=== PATIENT | female | born 1935 | race Caucasian/White ===

== ENCOUNTER 2023-10-07 09:27 | Outpatient (REF) | payer MEDICARE, OTHER, SELFPAY ==
--- NOTE | ~2023-10-07 | XR_ITS ---
EXAMINATION: XR HIP, RIGHT CLINICAL INFORMATION: Osteoarthritis right hip COMPARISON: None available. TECHNIQUE: Two views of the right hip. FINDINGS: Right hip joint space normal surrounding bone normal. There is a small focus of calcific or ossific density adjacent to the greater trochanter anterior laterally. This measures 15 mm craniocaudal and 3 mm transverse. Surrounding bone and soft tissues unremarkable. XR/XR hip RT min 2V IMPRESSION: 1. Normal right hip joint. 2. Small focus of calcific or ossific density adjacent to the greater trochanter. This could reflect calcific tendinitis or calcific bursitis or heterotopic ossification related to prior trauma.
== END 2023-10-07 09:28 | disposition home or self-care (01) ==
LOC: HO.XRAY 09:27
PROVIDERS: PCP Internal Medicine; Referring Provider Internal Medicine; Visit Provider Anesthesiology
DX: M16.11 Unilateral primary osteoarthritis, right hip (principal); G89.4 Chronic pain syndrome; M46.1 Sacroiliitis, not elsewhere classified; M99.04 Segmental and somatic dysfunction of sacral region
CPT/HCPCS: 73502; 99202

== ENCOUNTER 2023-10-07 09:27 | Outpatient (AMB) | payer MEDICARE, OTHER, SELFPAY ==
--- NOTE | 2023-10-07 09:31 | A.OFFVIS_ITS ---
Intake Vital Signs 10/07/23 09:56 Height 5 ft 4 in Weight 119 lb 4 oz BMI 20.5 BP 118/60 Blood Pressure Location Lt brachial Position Sitting Respiration 14 Pulse 63 Pulse Source Pulse Oximeter Pulse Oximetry (%) 97 Oxygen Delivery Method Room Air Intake Visit Reasons: Lumbar Radiculopathy Intake Note: Patient comes in for initial visit was referred by primary care. Reports pain 7/10. Allergies doxycycline Allergy (Unknown, Verified 10/07/23 09:55) Unknown fentanyl Allergy (Unknown, Verified 10/07/23 09:55) Nausea and Vomiting meperidine [From Demerol] Allergy (Unknown, Verified 10/07/23 09:55) Unknown naproxen [From Aleve] Allergy (Unknown, Verified 10/07/23 09:55) Unknown oxycodone Allergy (Unknown, Uncoded 10/07/23 09:30) Unknown HPI HPI Comments History of Present Illness Details La is very pleasant 87 years old female who presents in my office with complains on pain in the right side of the lower back with radiation down to the right lower extremity to the level of the knee on posterior surface of the posterior buttock hip and thigh. She also complains on pain in the projection of the right groin. She reports that this pain started in June 2022. She denies any trauma car accident or inciting event. She reports that she can sleep normally can do activities of daily living with certain limitations, for example she complains on severe pain in the groin while she is making up her bed. She can not take care of herself but she can not function normally. She is retired individual and homemaker now. She reports that heat applications and some cold applications alleviate her pain mostly minimally. She reports that walking and movement make her pain is most severe. She reports that flexing forward aggravate her pain more than flexing backwards. She reports that between standing walking laying down or sitting most of the pain she feels with standing and walking. She reports her pain today 8 to 9/10 in the back and 5 out of 10 in the groin. She reports her pain in terms of tissue damage as pulsing, throbbing, shooting, sharp, stinging, hurting, aching, heavy, spreading, radiating. She reports that she takes Plavix 75 mg because of history of TIA. She also reports she that she tried NSAIDs and Tylenol to help her pain. Those medications do not help her pain. She had multiple images of the lumbar spine which demonstrated spinal stenosis. She had multiple injections including facet joint injections as well as mild procedure all of those injections were done with steroids and none of it alleviated her pain. She does not remember if her physicians in the past spoke with her about the sacroiliac joint pain or hip pain. Her past medical history significant for TIA history of fatigue and history of thyroid nodules she was hypothyroid in the past however now her thyroid function returned to normal. She reports anemia and shortness of breath from time to time she might have some element of congestive heart failure. She denies any surgery if we had not consider mild procedures surgery. She admitted smoking cigarettes in the past she stated that she stopped smoking in 1989. She denies alcoholic beverages he does not drink coffee or caffeinated beverages, she denies recreational drugs. [facility] Family History (Updated 10/07/23 @ 09:35 by Maddy Chávez) Mother Cancer of lung Sister Diabetes type 2, controlled FH: mental illness Son FH: mental illness Social History (Updated 10/07/23 @ 09:32 by Maddy Chávez) Alcohol intake: never Patient Tobacco Use Status: Former Tobacco user Review of Systems Const Reports no additional complaints ENT Reports Normal hearing present Card Reports as per HPI Resp Reports as per HPI GI Reports no additional complaints Reports no additional complaints Musc Reports as per HPI Neuro Reports no additional complaints, Reports Normal hearing present, Denies Abnormal speech present, Denies confusion and Denies Sensory deficit (Neuro) Psych Reports no additional complaints and Denies confusion Physical Exam Vital Signs: Last Vital Signs Pulse 63 10/07/23 09:56 Resp 14 10/07/23 09:56 BP 118/60 10/07/23 09:56 Pulse Ox 97 10/07/23 09:56 Oxygen Delivery Method Room Air 10/07/23 09:56 BMI result Body Mass Index 20.5 Const General: no acute distress; No confusion Orientation/consciousness: patient oriented x3 and No confusion Eyes General: appearance normal, both eyes and all related structures Pupils: Equal, round and reactive pupils present EOM: EOMs intact bilaterally Neck Neck: Yes full ROM Chest Chest palpation & inspection: normal inspection of the chest Resp Effort & Inspection: normal respiratory effort, able to speak in complete senten mitch, normal respiratory pattern, no audible wheezes and no cough Cardio Jugular venous distension: no JVD GI Inspection: Yes normal to inspection Back/Spine/Pelvis Other: The patient is able to stand on bilateral tiptoes in bilateral heels without difficulty. She is just needs support for the balance. Flexing forward and flexing backwards aggravate her pain however flexing backwards aggravate her pain more than flexing forward. SLR is negative bilaterally. Aung test is positive on the right, left-sided performed Aung test also positive on the right. No tenderness on palpation in paraspinal spinal region of the most of the lumbar spine. No tenderness on percussion. Patient reports most of the tenderness on palpation in the projection of the L5-S1 presumable interval and rest of the sacral bone. Pelvic compression and pelvic distraction tests are positive on the right. Loading test is negative bilaterally. Valsalva maneuver is negative for pain increase. Lateral and medial hip rotation cause minor discomfort in the back of the patient however she denies discomfort in the groin. She reports severe pain in the groin with walking and flexing forward. Neuro General: patient oriented x3, gait normal and No confusion Cranial nerves: Yes CN's II-XII intact bilaterally, Yes Equal, round and reactive pupils present, Yes Normal hearing present and Yes Ability to bilaterally elevate shoulders present Speech: No Abnormal speech present Gait exam (Neuro): Normal gait present Motor exam (neuro): 5/5 motor strength present throughout Sensory Exam: No Sensory deficit (Neuro) Extrem General: No pedal edema Psych Speech and movement: Normal speech and movement present Affect: normal affect Attitude: cooperative Thought process: Normal thought process present Thought content: Normal thought content present Insight: Good insight present (Psych) Judgement: Good judgement present (Psych) Assessment & Plan Assessment & Plan (1) Right hip pain: Code(s): M25.551 - Pain in right hip (2) Osteoarthritis of right hip: Code(s): M16.11 - Unilateral primary osteoarthritis, right hip (3) Chronic pain syndrome: Code(s): G89.4 - Chronic pain syndrome (4) Sacroiliitis: Code(s): M46.1 - Sacroiliitis, not elsewhere classified (5) Somatic dysfunction of right sacroiliac joint: Code(s): M99.04 - Segmental and somatic dysfunction of sacral region Plan This patient might have spinal stenosis on the x-ray however on palpation she has minimal if any tenderness on palpation in lumbar spine. No wonder her mild procedure was not effective for her pain. With physical examination for thing which comes to my mind is the patient is suffering from combination of right hip osteoarthritis and right sacroiliitis. I will send this patient for right hip joint x-ray. I also will schedule her for right diagnostic sacroiliac joint injection. I will see her in the office after procedure. The pain diary was carefully explained to the patient. The patient agreed and was looking forward for this procedure. Orders: Orders XR hip RT min 2V Today M16.11 - Unilateral primary osteoarthritis, right hip, M25.551 - Pain in right hip Patient Instructions: I here by testify that I spent 45 minutes in conversation with this patient as well as planning her care making appropriate orders and organizing this note. Coding Level of Care Code New Pt Level 4 (44820) Diagnoses Right hip pain M25.551 Osteoarthritis of right hip M16.11 Chronic pain syndrome G89.4 Sacroiliitis M46.1 Somatic dysfunction of right sacroiliac joint M99.04
[2023-10-07 09:56] VITALS: BP 118/60; PULSE 63; RESP 14; O2SAT 97; BMI 20.5
== END 2023-10-07 10:21 | disposition home or self-care (01) ==
PROVIDERS: PCP Internal Medicine; Referring Provider Internal Medicine; Visit Provider Anesthesiology
DX: M25.551 Pain in right hip (principal); M16.11 Unilateral primary osteoarthritis, right hip; G89.4 Chronic pain syndrome; M46.1 Sacroiliitis, not elsewhere classified; M99.04 Segmental and somatic dysfunction of sacral region
CPT/HCPCS: 99204

== ENCOUNTER 2023-10-26 06:12 | Outpatient (REF) | payer MEDICARE, OTHER, SELFPAY ==
--- NOTE | ~2023-10-26 | FL_ITS ---
EXAMINATION: XR FLUOROSCOPY WITH IMAGES CLINICAL INFORMATION: Sacroiliitis. COMPARISON: None available. TECHNIQUE: Fluoroscopy Supervised By: Dr. Barkley. Fluoroscopy Time: 0.1 min. Cumulative Dose: 0.855 mGy. DAP: 0.0148 Gycm2. Images: 3. FINDINGS: Intraoperative fluoroscopy and spot films were performed during a procedure in the OR. Please see Dr. Barkley's report for complete details. FL/FL guidance in treatment room IMPRESSION: Intraoperative fluoroscopy and spot films were obtained. Please see Dr. Barkley's report for complete details.
== END 2023-10-26 06:13 | disposition home or self-care (01) ==
LOC: CF 06:12
PROVIDERS: Visit Provider Anesthesiology
DX: M46.1 Sacroiliitis, not elsewhere classified (principal); M99.04 Segmental and somatic dysfunction of sacral region
CPT/HCPCS: 27096; J2795; Q9967

== ENCOUNTER 2023-10-26 11:01 | Outpatient (AMB) | payer MEDICARE, OTHER, SELFPAY ==
--- NOTE | 2023-10-26 10:55 | A.OFFVIS_ITS ---
Vital Signs 10/26/23 11:49 10/26/23 11:49 Height 5 ft 4 in Weight 119 lb BMI 20.4 BP 136/82 128/78 Blood Pressure Location Lt brachial Lt brachial Position Sitting Sitting Respiration 16 18 Pulse 70 77 Pulse Source Pulse Oximeter Pulse Oximeter Pulse Oximetry (%) 98 96 Oxygen Delivery Method Room Air Room Air Comment Pre-Op Post-Op Intake Visit Reasons: Right Dx SIJ inj Allergies doxycycline Allergy (Unknown, Verified 10/07/23 09:55) Unknown fentanyl Allergy (Unknown, Verified 10/07/23 09:55) Nausea and Vomiting meperidine [From Demerol] Allergy (Unknown, Verified 10/07/23 09:55) Unknown naproxen [From Aleve] Allergy (Unknown, Verified 10/07/23 09:55) Unknown oxycodone Allergy (Unknown, Uncoded 10/07/23 09:30) Unknown PFSH Family History (Updated 10/07/23 @ 09:35 by Maddy Chávez) Mother Cancer of lung Sister Diabetes type 2, controlled FH: mental illness Son FH: mental illness Social History (Updated 10/07/23 @ 09:32 by Maddy Chávez) Alcohol intake: never Patient Tobacco Use Status: Former Tobacco user Physical Exam Vital Signs: Last Vital Signs Pulse 77 10/26/23 11:49 Resp 18 10/26/23 11:49 BP 128/78 10/26/23 11:49 Pulse Ox 96 10/26/23 11:49 Oxygen Delivery Method Room Air 10/26/23 11:49 BMI result Body Mass Index 20.4 Assessment & Plan Assessment & Plan (1) Sacroiliitis: Code(s): M46.1 - Sacroiliitis, not elsewhere classified Category: Medical Plan: Right diagnostic sacroiliac joint injection Informed consent was explained thoroughly to the patient. All questions about benefits and risks for the procedure were answered. Patient came to the operating room and was positioned prone on the operating table with the pillow under the pelvis. Time out was performed delineating name and of the patient, allergies and the nature of the procedure. The lower back and buttocks of the patient were prepped with ChloraPrep prepped and draped with sterile utility towels. C-arm was brought over the operating field and sq picture of patient's pelvis was demonstrated on the screen. For the right joint tilting C-arm contralateral to the site of the joint the most posterior portion of the joints was superimposed with anterior silhouette of the joint. Skin was injected in the projection of the joint slightly medial to the location of the joint with 25 gauge 1/2 inch needle using local lidocaine 2% .After that 22 gauge 3 and 1/2 inch needle was driven to the right joint in estephania jessie vision fashion. When needle entered the joint capsule injection of the contrast was performed demonstrating intra-articular and minimally periarticular spread of the contrast. After that 4 cc. of ropivacaine 0.5% was injected into the joint. Upon completion of the injections the needle was removed Sterile dressing was applied. Upon completion of the injection patient was taken outside of the operating room to the recovery room where recovered uneventfully. (2) Somatic dysfunction of right sacroiliac joint: Code(s): M99.04 - Segmental and somatic dysfunction of sacral region Category: Medical Plan ww Orders: Orders FL guidance in treatment room Today M46.1 - Sacroiliitis, not elsewhere classified Coding Level of Care Code Procedure Only Diagnoses Sacroiliitis M46.1 Somatic dysfunction of right sacroiliac joint M99.04
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
--- OUTSIDE RECORDS SUMMARY | 2023-10-26 11:03 | XMS_ITS | Continuity of Care Document ---
Author Organization [facility] Address [address] [place] [address]- Care Team Providers Care Tie In Machine Operator Name Role Phone Hari NEELY, Porter Mendez Primary Care Physician [phone] [place] [facility]13[place]12/20 [facility] [address] [place] [address]- [facility] Attending Physician: Yo Bello Admitting Physician: AdmYo colbert Referring Physician: AdmtrYo Allergies, Adverse Reactions, Alerts Substance Reaction Severity [...] tablet, 11 Refills, Maintenance, 09/21/19 13:40:00 EDT, [facility], refill when due, 161, cm, 09/20/19 9:35:00 EDT, Height, 55.5, kg, 09/18/19 22:53:00EDT, Dry Weight Start Date: 09/21/19 Status: Ordered FLUoxetine 20 mg oral capsule 20 mg, 1, capsule, By Mouth, Daily, # 30 capsule, Refills 0, Tot. Refills 0, Maintenance, 12/20/19 15:42:00 EDT, Route to Pharmacy Electronically, [facility] #[facility], dose increased from 10 mg, [...] of blood transfusion s as patient is Yarsani(Confirmed) Active Multinodular goiter - FNA 2008; followed by Dr. Rosado(Confirmed) Active TIA (transient ischemic attack)(Confirmed) Active Vitamin D deficiency(Confirmed) Active Social History Social History Type Response Smoking Status Former smoker; Other : minimal use, quit decades ago; entered on: 05/01/16 Sex
--- OUTSIDE RECORDS SUMMARY | 2023-10-26 11:03 | XMS_ITS | Continuity of Care Document ---
Author Organization [facility] Address [address] [address]- Care Team Providers Care Budget Specialist Name Role Phone Porter Noriega MD Primary Care Physician Encounter [facility] Date(s): 02/29/20 - 03/07/[address] [address]- [facility] Attending Physician: Kojo Lopez MD Referring Physician: Porter Noriega MD Allergies, Adverse Reactions, Alerts Substance Reaction [...] tablet, 11 Refills, Maintenance, 09/21/19 13:40:00 EDT, [facility], refill when due, 161, cm, 09/20/19 9:35:00 EDT, Height, 55.5, kg, 09/18/19 22:53:00EDT, Dry Weight Start Date: 09/21/19 Status: Ordered FLUoxetine 20 mg oral capsule See Instructions, TAKE ONE CAPSULE BY MOUTH ONCE DAILY, # 30 Unknown, Refills 11, Tot. Refills 11, 03/05/20 13:55:00 EDT, Instructions Replace Required Details, Route to Pharmacy Electronically, [facility], 161, cm, 01/21/20 14:01:00 EDT, [facility]... Start Date: 03/05/20 Status: Ordered FLUoxetine 20 mg oral capsule 20 mg, 1, capsule, By Mouth, Daily, # 30 capsule, Refills 0, Tot. Refills 0, Maintenance, 12/20/19 15:42:00 EDT, Route to Pharmacy Electronically, [facility] #[facility], dose increased from 10 mg, [...] tablet, Refills 11, Tot. Refills 11, Maintenance, 03/05/20 12:36:00 EDT, Route to Pharmacy Electronically, [facility], 161, cm, 01/21/20 14:01:00 EDT, Height, 51.9, kg, 02/01/20 14:41:00 EDT, Dry Weight Start Date: 03/05/20 Status: Ordered Problem List Condition Effective Dates Status Health Status Inform ant Anxiety(Confirmed) Active H/O Clostridium difficile in fection requiring admission 01/2016(Confirmed) Active H/O herpes zoster(Confirmed) Active Injury of right wrist(Confirmed) 01/21/20 Active 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 Alcaraz(Confirmed) Active Refusal of blood transfusion s as patient is Evangelical(Confirmed) Active Multinodular goiter - FNA 2008; followed by Dr. Rosado(Confirmed) Active TIA (transient ischemic attack)(Confirmed) Active Vitamin D deficiency(Confirmed) Active Vital Signs Most recent to oldest [Reference Range]: 1 Height 0 cm (02/29/20 3:26 PM) Temperature [96.8-100.4 DegF] 97.2 DegF (02/29/20 3:26 PM) Blood pressure sites Arm, left (02/29/20 3:26 PM) Temperature Route Tympanic (02/29/20 3:26 PM) Social History Social History Type Response Smoking Status Former smoker; Other : minimal use, quit decades ago; entered on: 05/01/16 Sex
--- OUTSIDE RECORDS SUMMARY | 2023-10-26 11:04 | XMS_ITS | Continuity of Care Document ---
Author Organization [facility] Address [address] [place] [address]- Care Team Providers Care Clin Application Specialist Name Role Phone Porter Noriega MD Primary Care Physician Encounter [facility] [place] Date(s): 08/31/23 - 09/30/23 [facility] [address] [place], [place] [address] Allergies, Adverse Reactions, Alerts Substance Reaction Severity Status doxycycline Active Indocin Active oxyCODONE Active Bactrim Active Aleve Active Demerol HCl Active fentaNYL Nausea and vomiting Active Immunizations Given and Recorded Vaccine Date Status Refusal Reason [id number] 12y+ bivalent booster vax 05/13/22 Recorded influenza virus vaccine, inactivated 04/27/22 Shlomo rded influenza virus vaccine, inactivated 04/04/21 Shlomo rded influenza virus vaccine, inactivated 04/07/20 Shlomo rded influenza virus vaccine, inactivated 05/28/19 Shlomo rded influenza virus vaccine, inactivated 03/22/18 Shlomo rded influenza virus vaccine, inactivated 03/30/17 Shlomo rded influenza virus vaccine, inactivated 04/29/16 Give n influenza virus vaccine, inactivated 03/02/14 Give n SARS-CoV-2 mRNA ([id number]) vax 11/01/21 Recorded SARS-CoV-2 (COVID-19) mRNA BNT-162b2 vac 04/30/21 Recorded SARS-CoV-2 (COVID-19) mRNA BNT-162b2 vac 10/16/20 Recorded SARS-CoV-2 (COVID-19) mRNA BNT-162b2 vac 09/24/20 Recorded pneumococcal 13-valent vaccine 08/05/16 Given tetanus/diphtheria/pertussis, acel(Tdap) 02/10/13 Given pneumococcal 23-valent vaccine 08/19/09 Given pneumococcal 23-valent vaccine 03/21/01 Given Medications atorvastatin 10 mg oral tablet 1 tablet = 10 mg, By Mouth, Daily, # 90 tablet, 3 Refills, Maintenance, 06/30/23 7:52:00 EST, [facility] #[facility], refill when due, 160, cm, 05/17/23 15:15:00 EST, Height, 55, kg, 05/17/23 5:19:00 EST, Dry Weight Start Date: 06/30/23 Status: Ordered clopidogrel 75 mg oral tablet 1, tablet, By Mouth, Daily, for 90 days, # 90 tablet, Refills 3, Tot. Refills 3, Physician Stop 07/08/24 14:41:00 EST, 07/14/23 14:41:00 EST, Route to Pharmacy Electronically, [facility], 160, cm, 07/14/23 14:21:00 EST, Height, 53.5, kg, 07/14... Start Date: 07/14/23 Stop Date: 07/08/24 Status: Ordered docusate sodium 100 mg oral capsule 100 mg, 1, capsule, By Mouth, Daily, # 20 capsule, Refills 0, Maintenance, 08/26/20 15:51:00 EST, Partial fill upon patient request if the prescription is for a schedule II opioid drug. Start Date: 08/26/20 Status: Ordered FLUoxetine 10 mg oral capsule 10 mg, 1, capsule, By Mouth, Daily, # 90 capsule, Refills 3, Tot. Refills 3, Maintenance, 11/10/22 12:45:00 EDT, Route to Pharmacy Electronically, [facility] #[facility], dose decrease, 160, cm, 10/14/2312:33:00 EDT, Height, 55, kg, 07/05/21 12:11:00 EST... Start Date: 11/10/22 Status: Ordered Metamucil 3.4 gm/5.2 gm oral powder for reconstitution = 3.4 Gm, By Mouth, Daily, dissolve in 8 oz of fluid, 0 Refills, Maintenance, 10/07/21 13:45:00 EDT, Partial fill upon patient request if the prescription is for a schedule II opioid drug. Start Date: 10/07/21 Status: Ordered MiraLax oral powder for reconstitution = 17 Gm, By Mouth, Daily, PRN constipation, dissolve in water before taking, # 255 Gm, 0 Refills, Maintenance, 08/26/20 15:51:00 EST, REC Powder, Partial fill upon patient request if the prescriptionis for a schedule II opioid drug. Start Date: 08/26/20 Status: Ordered mirtazapine 7.5 mg oral tablet See Instructions, TAKE ONE TABLET BY MOUTH AT BEDTIME, # 30 tablet, 11 Refills, 08/31/23 16:54:00 EDT, [facility], 160, cm, 07/14/23 14:21:00 EST, Height, 53.5, kg, 07/14/23 14:21:00 EST, DryWeight Start Date: 08/31/23 Status: Ordered Problem List Condition Confirmation Course Effective Dates Status H ealth Status Informant Anxiety Confirmed Active H/O Clostridium difficile infection requiring admission 01/2016 Confirmed Active H/O herpes zoster Confirmed Active Injury of right wrist Confirmed 01/21/20 Active Osteoporosis not on bisphosphonate Confirmed Active Panic disorder Confirmed Active Polymyalgia rheumatica Confirmed Active Recurrent urinary tract infection; h/o hydronephrosis; urologist Dr. Alcaraz Confirmed Active Refusal of blood transfusions as patient is [employer] Confirmed Active Multinodular goiter - FNA 11/2008; followed by Dr. Rosado Confirmed Active TIA (transient ischemic attack) Confirmed Active Vitamin D deficiency Confirmed Active Social History Social History Type Response Smoking Status Former smoker; Other : minimal use, quit decades ago; entered on: 05/01/16 Sex Patient Care team information Care Team Personnel Name: Birgit Sethi RN Position: [facility] RN Member Role: Primary Care Nurse Name: Christina Villa RN Position: [facility] RN Member Role: Primary Care Nurse Name: Porter Noriega MD Position: [facility] Physician - Primary Care Member Role: PCP Address: Address: [address] [place] [address] Adult & Pediatric [address] Name: Vianey Lockwood RN Position: [facility] ED RN W/OE and Tasks Member Role: Primary Care Nurse Name: Hiwot Donaldson [place] Position: [facility] RN Member Role: Primary Care Nurse Name: Nehal Pate Position: [facility] RN Member Role: Primary Care Nurse Name: Yo Tolbert RN Position: [facility] RN Member Role: Primary Care Nurse Name: Dajuan Martinez RN Position: [facility] RN Member Role: Primary Care Nurse Name: Scott Lou MD Position: [facility] Physician - Behavioral Health Member Role: Lifetime Consulting Physician Address: Address: [address] [place] [address]- [place] Care Team Related Persons Name: ZINA MOHAN Address: [place] [address] Name: ZINA JONES Address: [place] [address]
--- OUTSIDE RECORDS SUMMARY | 2023-10-26 11:04 | XMS_ITS | Continuity of Care Document ---
Author Organization [facility] Address [address] [place] [address]- Care Team Providers Care Solderer Production Line Name Role Phone Hari NEELY, Porter Mendez Primary Care Physician [phone] [place] [facility] [place] 02/24/22 - 03/26/22 [facility] [address] [place], [place] [address] Allergies, Adverse Reactions, Alerts Substance Reaction Severity [...] mg, By Mouth, Daily, # 30 tablet, 5 Refills, Maintenance, 03/11/22 9:30:00 EDT, [facility], refill when due, 160, cm, 10/07/21 13:18:00 EDT, Height, 55, kg, 07/05/21 12:11:00 EST, Dry Weight Start Date: 03/11/22 Status: Ordered clopidogrel 75 mg oral tablet 1, tablet, By Mouth, Daily, # 30 tablet, Refills 11, Tot. Refills 11, 03/11/22 10:00:00 EDT, Route to Pharmacy Electronically, [facility], 160, cm, 10/07/21 13:18:00 EDT, Height, 55, kg, 07/05/21 12:11:00 EST, Dry Weight Start Date: 03/11/22 Status: Ordered docusate sodium 100 mg oral capsule 100 mg, 1, capsule, By Mouth, Daily, # 20 capsule, Refills 0, Maintenance, 08/26/20 15:51:00 EST, Partial fill upon patient request if the prescription is for a schedule II opioid drug. Start Date: 08/26/20 Status: Ordered FLUoxetine 20 mg oral capsule See Instructions, TAKE ONE CAPSULE BY MOUTH ONCE DAILY, # 30 each, Refills 11, Tot. Refills 11, 02/24/22 16:54:00 EDT, Instructions Replace Required Details, Route to Pharmacy Electronically, [facility] #[facility], 160, cm, 10/07/21 13:18:00 EDT, Height,... Start Date: 02/24/22 Status: Ordered Metamucil 3.4 gm/5.2 gm oral [...] BY MOUTH AT BEDTIME, # 30 tablet, 5 Refills, [facility] #[facility], 161, cm, 01/21/20 14:01:00 EDT, Height, 51.9, kg, 02/01/20 14:41:00 EDT, Dry Weight Start Date: 06/07/21 Status: Ordered Problem List Condition Confirmation Course [...] Refusal of blood transfusions as patient is [employer] Confirmed Active Multinodular goiter - FNA 11/2008; followed by Dr. Rosado Confirmed Active TIA (transient ischemic attack) Confirmed Active Vitamin D deficiency Confirmed Active Social History Social History Type Response Smoking Status Former smoker; Other : minimal use, quit decades ago; entered on: 05/01/16 Sex Patient Care team information Personnel Name: Hari NEELY, Porter Mendez Address: Address: [address] [place] [address] Adult [facility] Pediatric Medicine [address]
--- OUTSIDE RECORDS SUMMARY | 2023-10-26 11:04 | XMS_ITS | Continuity of Care Document ---
Author Organization [facility][1] [facility] Address [address] [place] [address]- Care Team Providers Care Rooms Director Name Role Phone Hari NEELY, Porter Mendez Primary Care Physician Encounter [facility] Date(s): 03/04/20 - 04/03/20 [facility] [address] [place] [address]- [facility] Allergies, Adverse Reactions, Alerts Substance Reaction Severity [...] tablet, 11 Refills, Maintenance, 09/21/19 13:40:00 EDT, [facility], refill when due, 161, cm, 09/20/19 9:35:00 EDT, Height, 55.5, kg, 09/18/19 22:53:00EDT, Dry Weight Start Date: 09/21/19 Status: Ordered FLUoxetine 20 mg oral capsule See Instructions, TAKE ONE CAPSULE BY MOUTH ONCE DAILY, # 30 Unknown, Refills 11, Tot. Refills 11, 03/05/20 13:55:00 EDT, Instructions Replace Required Details, Route to Pharmacy Electronically, [facility], 161, cm, 01/21/20 14:01:00 EDT, [facility]... Start Date: 03/05/20 Status: Ordered FLUoxetine 20 mg oral capsule 20 mg, 1, capsule, By Mouth, Daily, # 30 capsule, Refills 0, Tot. Refills 0, Maintenance, 12/20/19 15:42:00 EDT, Route to Pharmacy Electronically, [facility] #[facility], dose increased from 10 mg, 160, cm, 10/08/19 8:40:00 EDT, Height, 53.6, kg, 10/05/19... Start Date: 12/20/19 Status: Ordered mirtazapine 7.5 mg oral tablet 1 tablet = 7.5 mg, By Mouth, Daily at bedtime, # 30 tablet, 11 Refills, Maintenance, 03/18/20 12:38:00 EDT, Tablet, [facility] #[facility], 161, cm, 01/21/20 14:01:00 EDT, Height, 51.9, kg, 02/01/20 14:41:00 EDT, Dry Weight Start Date: 03/18/20 Status: Ordered Plavix 75 mg oral tablet 75 mg, 1, tablet, By Mouth, Daily, # 30 tablet, Refills 11, Tot. Refills 11, Maintenance, 03/05/20 12:36:00 EDT, Route to Pharmacy Electronically, [facility] #[facility], 161, cm, [...] of blood transfusion s as patient is Jewish(Confirmed) Active Multinodular goiter - FNA 2008; followed by Dr. Rosado(Confirmed) Active TIA (transient ischemic attack)(Confirmed) Active Vitamin D deficiency(Confirmed) Active Social History Social History Type Response Smoking Status Former smoker; Other : minimal use, quit decades ago; entered on: 05/01/16 Sex
--- OUTSIDE RECORDS SUMMARY | 2023-10-26 11:04 | XMS_ITS | Continuity of Care Document ---
Author Organization [facility] Address [address] [place] [address]- Care Team Providers Care Power Driven Brush Maker Name Role Phone Porter Noriega MD Primary Care Physician [phone] Encounter [facility] [place] Date(s): 05/24/20 - 05/31/20 [facility] [address] [place] [address]- Encounter Diagnosis Periodontal disease(Discharge Diagnosis) - 05/24/20 TIA (transient ischemic attack)(Discharge Diagnosis) - 05/24/20 Polymyalgia rheumatica(Discharge Diagnosis) - 05/24/20 Anxiety(Discharge Diagnosis) - 05/24/20 Attending Physician: Porter Noriega MD Allergies, Adverse Reactions, [...] tablet, 11 Refills, Maintenance, 09/21/19 13:40:00 EDT, [facility] #[facility], refill when due, 161, cm, 09/20/19 9:35:00 EDT, Height, 55.5, kg, 09/18/19 22:53:00EDT, Dry Weight Start Date: 09/21/19 Status: Ordered FLUoxetine 20 mg oral capsule See Instructions, TAKE ONE CAPSULE BY MOUTH ONCE DAILY, # 30 Unknown, Refills 11, Tot. Refills 11, 03/05/20 13:55:00 EDT, Instructions Replace Required Details, Route to Pharmacy Electronically, [facility] #[facility], 161, cm, 01/21/20 14:01:00 EDT, [facility]... Start Date: 03/05/20 Status: Ordered mirtazapine 7.5 mg oral tablet 1 tablet = 7.5 mg, By Mouth, Daily at bedtime, # 30 tablet, 11 Refills, Maintenance, 03/18/20 12:38:00 EDT, Tablet, [facility] #[facility], 161, cm, 01/21/20 14:01:00 EDT, Height, 51.9, kg, 02/01/20 14:41:00 EDT, Dry Weight Start Date: 03/18/20 Status: Ordered Plavix 75 mg oral tablet 75 mg, 1, tablet, By Mouth, Daily, # 30 tablet, Refills 11, Tot. Refills 11, Maintenance, 03/05/20 12:36:00 EDT, Route to Pharmacy Electronically, [facility] #[facility], 161, cm, 01/21/20 14:01:00 EDT, Height, 51.9, kg, 02/01/20 14:41:00 EDT, Dry Weight Start Date: 03/05/20 Status: Ordered Problem List Condition Effective Dates Status Health Status Inform ant Anxiety(Confirmed) Active H/O Clostridium difficile in fection requiring admission 01/2016(Confirmed) Active H/O herpes zoster(Confirmed) Active Injury of right wrist(Confirmed) 01/21/20 Active 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 Alcaraz(Confirmed) Active Refusal of blood transfusion s as patient is [employer](Confirmed) Active Multinodular goiter - FNA 2008; followed by Dr. Rosado(Confirmed) Active TIA (transient ischemic attack)(Confirmed) Active Vitamin D deficiency(Confirmed) Active Diagnosis Diagnosis Type Effective Dates Health Status Clinical Service Informant Periodontal disease Discharge Diagnosis 05/24/20 TIA (transient ischemic attack) Discharge Diagnosis 05/24/20 Polymyalgia rheumatica Discharge Diagnosis 05/24/20 Anxiety Discharge Diagnosis 05/24/20 Social History Social History Type Response Smoking Status Former smoker; Other : minimal use, quit decades ago; entered on: 05/01/16 Sex
--- OUTSIDE RECORDS SUMMARY | 2023-10-26 11:04 | XMS_ITS | Continuity of Care Document ---
Author Organization [facility] Address [address] [place] [address]- Care Team Providers Care Boarding Machine Operator Name Role Phone Porter Noriega MD Primary Care Physician En[place] [facility] [place] Date(s): 10/14/22 - 10/21/22 [facility] [address] [place] [address]- Encounter Diagnosis Anxiety(Discharge Diagnosis) - 10/14/22 Attending Physician: Porter Noriega MD Allergies, Adverse Reactions, Alerts Substance Reaction Severity Status doxycycline Active Indocin Active Bactrim Active Aleve Active Demerol HCl Active fentaNYL Nausea and vomiting Active oxyCODONE Active Immunizations Given and Recorded Vaccine Date Status Refusal Reason [id number] 12y+ bivalent booster vax 05/13/22 Recorded influenza [...] vaccine, inactivated 03/02/14 Give n SARS-CoV-2 mRNA ([id number]) vax 11/01/21 Recorded SARS-CoV-2 (COVID-19) mRNA BNT-162b2 vac 04/30/21 Recorded SARS-CoV-2 (COVID-19) mRNA BNT-162b2 vac 10/16/20 Recorded SARS-CoV-2 (COVID-19) mRNA BNT-162b2 vac 09/24/20 Recorded pneumococcal 13-valent vaccine 08/05/16 Given tetanus/diphtheria/pertussis, acel(Tdap) 02/10/13 Given pneumococcal 23-valent vaccine 08/19/09 Given pneumococcal 23-valent vaccine 03/21/01 Given Medications atorvastatin 10 mg oral tablet 1 tablet = 10 mg, By Mouth, Daily, # 90 tablet, 0 Refills, Maintenance, 09/08/22 13:56:00 EDT, [facility], refill when due, 160, cm, 10/07/21 13:18:00 EDT, Height, 55, kg, 07/05/21 12:11:00 EST, Dry Weight Start Date: 09/08/22 Status: Ordered clopidogrel 75 mg oral tablet 1, tablet, By Mouth, Daily, # 30 tablet, Refills 11, Tot. Refills 11, 03/11/22 10:00:00 EDT, Route to Pharmacy Electronically, [facility], 160, cm, 10/07/21 13:18:00 EDT, [...] ONE CAPSULE BY MOUTH ONCE DAILY, # 90 each, Refills 3, Tot. Refills 3, 10/14/22 17:06:00 EDT, Instructions Replace Required Details, Route to Pharmacy Electronically, [facility], 160, cm, 10/14/22 13:33:00 EDT, Height, 5... Start Date: 10/14/22 Status: Ordered Metamucil 3.4 gm/5.2 gm oral [...] AT BEDTIME, # 30 tablet, 11 Refills, 06/16/22 16:38:00 EST, [facility], 160, cm, 10/07/21 13:18:00 EDT, Height, 55, kg, 07/05/21 12:11:00 EST, Dry Weight Start Date: 06/16/22 Status: Ordered Problem List Condition Confirmation Course [...] Refusal of blood transfusions as patient is [employer] Confirmed Active Multinodular goiter - FNA 11/2008; followed by Dr. Rosado Confirmed Active TIA (transient ischemic attack) Confirmed Active Vitamin D deficiency Confirmed Active Diagnosis Diagnosis Type Effective Dates Health Status Clini jennifer Service Informant Anxiety Discharge Diagnosis 10/14/22 Vital Signs Most recent to oldest [Reference Range]: 1 Height 160 cm (10/14/22 1:33 PM) Weight 58.18 kg (10/14/22 1:33 PM) Oxygen Saturation [94-100 %] 99 % (10/14/22 1:33 PM) Pulse Rate [55-90 bpm] 59 bpm (10/14/22 1:33 PM) Body Mass Index [18.5-24.99 kg/m2] 22.73 kg/m2 (10/14/22 1:33 PM) Blood Pressure [90-138/55-84 mm Hg] 129/ 72mm Hg (10/14/22 1:33 PM) Mode of Delivery (Oxygen) Room air (10/14/22 1:33 PM) Blood pressure sites Arm, right (10/14/22 1:33 PM) Weight Obtained Via Pediatric scale (10/14/22 1:33 PM) Social History Social History Type Response Smoking Status Former smoker; Other : minimal use, quit decades ago; entered on: 05/01/16 Sex Patient Care team information Care Team Personnel Name: Birgit Sethi RN Position: [facility] RN Member Role: Primary Care Nurse Name: Porter Noriega MD Position: [facility] Primary Care Physician Member Role: PCP Address: Address: [address] [place] [address] Adult & [place] [address]- Name: Vianey Lockwood RN Position: [facility] RN Member Role: Primary Care Nurse Name: Hiwot Boyle Position: [facility] RN Member Role: Primary Care Nurse Name: Nehal Pate Position: [facility] RN Member Role: Primary Care Nurse Name: Christina Cardenas RN Position: [facility] RN Member Role: Primary Care Nurse Name: Dajuan Martinez RN Position: [facility] ED RN W/OE and Tasks Member Role: Primary Care Nurse Name: Scott Lou MD Position: [facility] Psychiatry MD Member Role: Lifetime Consulting Physician Address: Address: [address] [place] [address] Care Team Related Persons Name: KIMBERLEE ZINA Address: [address] [place] [address] Name: ZINA JONES Address: [place] [address] [place] [address]
--- OUTSIDE RECORDS SUMMARY | 2023-10-26 11:04 | XMS_ITS | Continuity of Care Document ---
Author Organization [facility] Address [address] [place] [address]- Care Team Providers Care Forming Press Operator Name Role Phone Hari NEELY, Porter Mendez Primary Care Physician [phone] Encounter [facility] [place] Date(s): 09/21/19 - 10/01/19 [facility] [address] [place] [address]- [facility] Attending Physician: Yo Bello Admitting Physician: AdmYo colbert Referring Physician: AdmtrYo Allergies, Adverse Reactions, Alerts Substance Reaction Severity Status doxycycline Active Indocin Active fentaNYL Nausea and vomiting Active oxyCODONE Active Bactrim Active Aleve Active Demerol HCl Active Immunizations Given and Recorded Vaccine Date [...] tablet, 11 Refills, Maintenance, 09/21/19 13:40:00 EDT, [facility], refill when due, 161, cm, 09/20/19 9:35:00 EDT, Height, 55.5, kg, 09/18/19 22:53:00EDT, Dry Weight Start Date: 09/21/19 Status: Ordered mirtazapine 7.5 mg oral tablet See Instructions, one half tablet By Mouth Daily at bedtime, # 15 each, 11 Refills, Maintenance, 08/23/19 15:39:00 EST, Tablet, [facility], tablet dose change, refill when due, 160.65, cm, 08/23/19 15:19:00 EST, Height Start Date: 08/23/19 Status: Ordered Plavix 75 mg oral tablet 75 mg, 1, tablet, By Mouth, Daily, # 30 tablet, Refills 11, Tot. Refills 11, Maintenance, 09/21/19 13:41:00 EDT, Route to Pharmacy Electronically, [facility], refill when due, 161, cm, 09/20/19 9:35:00 EDT, Height, 55.5, kg, 09/18/19 22:53:00... Start Date: 09/21/19 Status: Ordered predniSONE 5 mg oral tablet 3 tablet = 15 mg, By Mouth, Daily, Maintenance, 09/19/19 21:28:00 EDT Start Date: 09/19/19 Status: Ordered Problem List Condition Effective Dates Status Health Status Inform ant Anxiety(Confirmed) Active H/O Clostridium difficile in fection requiring admission 01/2016(Confirmed) Active H/O herpes zoster(Confirmed) Active 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 Alcaraz(Confirmed) Active Refusal of blood transfusion s as patient is [place](Confirmed) Active Multinodular goiter - FNA 2008; followed by Dr. Rosado(Confirmed) Active TIA (transient ischemic attack)(Confirmed) Active Vitamin D deficiency(Confirmed) Active Social History Social History Type Response Smoking Status Former smoker; Other : minimal use, quit decades ago; entered on: 05/01/16 Sex
--- OUTSIDE RECORDS SUMMARY | 2023-10-26 11:05 | XMS_ITS | Continuity of Care Document ---
Author Organization [facility] Address [address] [place] [address]- Care Team Providers Care Scoring Machine Operator Name Role Phone Porter Noriega MD Primary Care Physician [phone] Encounter [facility] Date(s): 09/24/23 - 10/24/23 [facility] [address] [place], [place] [address] Allergies, Adverse Reactions, Alerts Substance Reaction Severity Status doxycycline Active Indocin Active Bactrim Active Aleve Active Demerol HCl Active fentaNYL Nausea and vomiting Active oxyCODONE Active Immunizations Given and Recorded Vaccine Date Status Refusal Reason [id number] 12y+ bivalent booster vax 05/13/22 Recorded influenza [...] vaccine, inactivated 03/02/14 Give n SARS-CoV-2 mRNA ([id number]) vax 11/01/21 Recorded SARS-CoV-2 (COVID-19) mRNA BNT-162b2 [...] tablet, 3 Refills, Maintenance, 06/30/23 7:52:00 EST, [facility] #66, refill when due, 160, cm, 05/17/23 15:15:00 EST, Height, 55, kg, 05/17/23 5:19:00 EST, Dry Weight Start Date: 06/30/23 Status: Ordered clopidogrel 75 mg oral tablet 1, tablet, By Mouth, Daily, for 90 days, # 90 tablet, Refills 3, Tot. Refills 3, Physician Stop 07/08/24 14:41:00 EST, 07/14/23 14:41:00 EST, Route to Pharmacy Electronically, [facility], 160, cm, 07/14/23 14:21:00 EST, [...] capsule, Refills 3, Tot. Refills 3, Maintenance, 10/20/23 14:09:00 EDT, Route to Pharmacy Electronically, [facility] #[facility], dose decrease, 160, cm, 10/19/2412:58:00 EDT, Height, 54.4, kg, 10/20/23 13:58:00 E... Start Date: 10/20/23 Status: Ordered Metamucil 3.4 gm/5.2 gm oral [...] Refusal of blood transfusions as patient is Tenriism Confirmed Active Multinodular goiter - FNA 11/2008; followed by Dr. Rosado Confirmed Active TIA (transient ischemic attack) Confirmed Active Vitamin D deficiency Confirmed Active Social History Social History Type Response Smoking Status Former smoker; Other : minimal use, quit decades ago; entered on: 05/01/16 Sex Patient Care team information Care Team Personnel Name: Birgit Sethi RN Position: [facility] SN RN Member Role: Primary Care Nurse Name: Christina Villa RN Position: [facility] RN Member Role: Primary Care Nurse Name: Porter Noriega MD Position: [facility] Physician - Primary Care Member Role: PCP Address: Address: [address] [place] [address] Adult & Pediatric [address] Name: Vianey Lockwood RN Position: [facility] ED RN W/OE and Tasks Member Role: Primary Care Nurse Name: Hiwot Donaldson [place] Position: [facility] RN Member Role: Primary Care Nurse Name: Nehal Pate Position: [facility] RN Member Role: Primary Care Nurse Name: Yo Tolbert RN Position: [facility] RN Member Role: Primary Care Nurse Name: Dajuan Martinez RN Position: [facility] RN Member Role: Primary Care Nurse Name: Scott Lou MD Position: [facility] Physician - Behavioral Health Member Role: Lifetime Consulting Physician Address: Address: [address] [place] [address]- Care Team Related Persons Name: ZINA MOHAN Address: [place] [address] Name: ZINA JONES Address: [place] [address]
--- OUTSIDE RECORDS SUMMARY | 2023-10-26 11:05 | XMS_ITS | Continuity of Care Document ---
Author Organization [facility] Address [address] [place] [address]- Care Team Providers Care Cordwainer Name Role Phone Hari NEELY, Porter Mendez Primary Care Physician En[place] [facility] [place] Date(s): 06/16/22 - 07/16/22 [facility] [address] [place], [place] [address] Allergies, Adverse Reactions, Alerts Substance Reaction Severity [...] Replace Required Details, Route to Pharmacy Electronically, [facility] #[facility], 160, cm, 10/07/21 13:18:00 EDT, [...] 30 tablet, 11 Refills, 06/16/22 16:38:00 EST, [facility] #[facility], 160, cm, 10/07/21 13:18:00 EDT, [...] Refusal of blood transfusions as patient is Church Confirmed Active Multinodular goiter - FNA 11/2008; followed by Dr. Rosado Confirmed Active TIA (transient ischemic attack) Confirmed Active Vitamin D deficiency Confirmed Active Social History Social History Type Response Smoking Status Former smoker; Other : minimal use, quit decades ago; entered on: 05/01/16 Sex Patient Care team information Care Team Personnel Name: Birgit Sethi RN Position: [facility] RN Member Role: Primary Care Nurse Name: Porter Noriega MD Position: [facility] Primary Care Physician Member Role: PCP Address: Address: [address] [place] [address] Adult [place] [address]- Name: Vianey Lockwood RN Position: [facility] RN Member Role: Primary Care Nurse Name: Hiwot Boyle Position: [facility] RN Member Role: Primary Care Nurse Name: Nehal Pate Position: [facility] RN Member Role: Primary Care Nurse Name: Christina Cardenas RN Position: [facility] RN Member Role: Primary Care Nurse Name: Dajuan Martinez RN Position: [facility] ED RN W/OE and Tasks Member Role: Primary Care Nurse Name: Scott Lou MD Position: [facility] Psychiatry MD Member Role: Lifetime Consulting Physician Address: Address: [address] [place] [address] Care Team Related Persons Name: KIMBERLEE ZINA Address: home [address] [place] [id number] Name: ZINA JONES Address: [address] [place] [address]
--- OUTSIDE RECORDS SUMMARY | 2023-10-26 11:05 | XMS_ITS | Continuity of Care Document ---
Author Organization [facility] Address [address] [place] [address]- Care Team Providers Care Paper Coater Name Role Phone Porter Noriega MD Primary Care Physician [phone] Encounter [facility] Date(s): 10/14/22 - 11/13/22 [facility] [address] [place], [place] [address] Attending Physician: oY Bello Admitting Physician: AdmtrYo Referring Physician: Admtr, Ar8 Allergies, Adverse Reactions, Alerts Substance Reaction Severity Status doxycycline Active Indocin Active Bactrim Active Aleve Active Demerol HCl Active fentaNYL Nausea and vomiting Active oxyCODONE Active Immunizations Given and Recorded Vaccine Date Status Refusal Reason [id number] 12y+ bivalent booster vax 05/13/22 Recorded influenza [...] vaccine, inactivated 03/02/14 Give n SARS-CoV-2 mRNA ([id number]) vax 11/01/21 Recorded SARS-CoV-2 (COVID-19) mRNA BNT-162b2 [...] tablet, 0 Refills, Maintenance, 09/08/22 13:56:00 EDT, [facility] #[facility], refill when due, 160, cm, 10/07/21 13:18:00 EDT, Height, 55, kg, 07/05/21 12:11:00 EST, Dry Weight Start Date: 09/08/22 Status: Ordered clopidogrel 75 mg oral tablet 1, tablet, By Mouth, Daily, # 30 tablet, Refills 11, Tot. Refills 11, 03/11/22 10:00:00 EDT, Route to Pharmacy Electronically, [facility] #[facility], 160, cm, 10/07/21 [...] 11/10/22 12:45:00 EDT, Route to Pharmacy Electronically, [facility] #[facility], dose decrease, 160, cm, 10/14/2312:33:00 [...] Refusal of blood transfusions as patient is Baptism Confirmed Active Multinodular goiter - FNA 11/2008; followed by Dr. Rosado Confirmed Active TIA (transient ischemic attack) Confirmed Active Vitamin D deficiency Confirmed Active Social History Social History Type Response Smoking Status Former smoker; Other : minimal use, quit decades ago; entered on: 05/01/16 Sex Radiology * Event Display: Ultrasound Neck, Non- Authored Date: * Event Display: MRI Head, Non- Authored Date: * Event Display: MRI Head, Non- Authored Date: Patient Care team information Care Team Personnel Name: Birgit Sethi RN Position: [facility] RN Member Role: Primary Care Nurse Name: Porter Noriega MD Position: S Physician - Primary Care Member Role: PCP Address: Address: [address] [place] [address] Adult & Pediatric Medicine [place], [place] [address] Name: Vianey Lockwood RN Position: [facility] RN Member Role: Primary Care Nurse Name: Hiwot Boyle Position: [facility] RN Member Role: Primary Care Nurse Name: Nehal Pate Position: [facility] RN Member Role: Primary Care Nurse Name: Christina Cardenas RN Position: [facility] RN Member Role: Primary Care Nurse Name: Dajuan Martinez RN Position: [facility] ED RN W/OE and Tasks Member Role: Primary Care Nurse Name: Scott Lou MD Position: [facility] Psychiatry MD Member Role: Lifetime Consulting Physician Address: Address: [address] [place] [address]- Care Team Related Persons Name: KIMBERLEEZINA Address: [address] [address] Name: ZINA JONES Address: [address] [address]
--- OUTSIDE RECORDS SUMMARY | 2023-10-26 11:05 | XMS_ITS | Continuity of Care Document ---
Author Organization [facility] Address [address] [place] [address]- Care Team Providers Care Mental Health Technician Name Role Phone Hari NEELY, Porter Mendez Primary Care Physician En[place] [facility] Date(s): 10/11/19 - 11/10/19 [facility] [address] [place] [address]- [facility] Attending Physician: Yo Bello Admitting Physician: [...] Refills, Maintenance, 09/21/19 13:40:00 EDT, [facility] #[facility], refill when due, 161, cm, 09/20/19 9:35:00 EDT, Height, 55.5, kg, 09/18/19 22:53:00EDT, Dry Weight Start Date: 09/21/19 Status: Ordered mirtazapine 7.5 mg oral tablet 1 tablet = 7.5 mg, By Mouth, Daily at bedtime, 0 Refills, Maintenance, 10/05/19 17:06:00 EDT Start Date: 10/05/19 Status: Ordered Plavix 75 mg oral tablet 75 mg, 1, tablet, By Mouth, Daily, # 30 tablet, Refills 11, Tot. Refills 11, Maintenance, 10/16/19 8:15:00 EDT, Route to Pharmacy Electronically, [facility], 160, cm, 10/08/19 8:40:00 EDT, Height, 53.6, kg, 10/05/19 16:00:00 EDT, Dry Weight Start Date: 10/16/19 Status: Ordered predniSONE 1 mg oral tablet See Instructions, 5-8 tablets By Mouth Daily as directed, 0 [...] of blood transfusion s as patient is Mandaeism(Confirmed) Active Multinodular goiter - FNA 2008; followed by Dr. Rosado(Confirmed) Active TIA (transient ischemic attack)(Confirmed) Active Vitamin D deficiency(Confirmed) Active Social History Social History Type Response Smoking Status Former smoker; Other : minimal use, quit decades ago; entered on: 05/01/16 Sex
--- OUTSIDE RECORDS SUMMARY | 2023-10-26 11:05 | XMS_ITS | Continuity of Care Document ---
Author Organization [facility] Address [address] [place] [address]- Care Team Providers Care Cement Mason Maintenance Name Role Phone Porter Noriega MD Primary Care Physician [phone] Encounter [facility] [place] Date(s): 06/29/23 - 07/29/23 [facility] [address] [place], [place] [address] Allergies, Adverse Reactions, Alerts Substance Reaction Severity Status doxycycline Active Indocin Active Bactrim Active Aleve Active Demerol HCl Active fentaNYL Nausea and vomiting Active oxyCODONE Active Immunizations Given and Recorded Vaccine Date Status Refusal Reason [id number] 12y+ bivalent booster vax 05/13/22 Recorded influenza [...] vaccine, inactivated 03/02/14 Give n SARS-CoV-2 mRNA ([id number]-cazo-zhiji) vax 11/01/21 Recorded SARS-CoV-2 (COVID-19) mRNA BNT-162b2 [...] tablet, 3 Refills, Maintenance, 06/30/23 7:52:00 EST, [facility] #66, refill when due, 160, cm, 05/17/23 15:15:00 EST, Height, 55, kg, 05/17/23 5:19:00 EST, Dry Weight Start Date: 06/30/23 Status: Ordered clopidogrel 75 mg oral tablet 1, tablet, By Mouth, Daily, for 90 days, # 90 tablet, Refills 3, Tot. Refills 3, Physician Stop 07/08/24 14:41:00 EST, 07/14/23 14:41:00 EST, Route to Pharmacy Electronically, [facility] #[facility], 160, cm, 07/14/23 14:21:00 EST, [...] Refusal of blood transfusions as patient is Christianity Confirmed Active Multinodular goiter - FNA 11/2008; followed by Dr. Rosado Confirmed Active TIA (transient ischemic attack) Confirmed Active Vitamin D deficiency Confirmed Active Social History Social History Type Response Smoking Status Former smoker; Other : minimal use, quit decades ago; entered on: 05/01/16 Sex Patient Care team information Care Team Personnel Name: Birgit Sethi RN Position: [facility] RN Member Role: Primary Care Nurse Name: Christina Villa RN Position: [facility] RN Member Role: Primary Care Nurse Name: Porter Noriega MD Position: [facility] Physician - Primary Care Member Role: PCP Address: Address: [address] [place] [address] Adult & Pediatric Medicine [address] Name: Vianey Lockwood RN Position: [facility] ED RN W/OE and Tasks Member Role: Primary Care Nurse Name: Hiwot Donaldson [place] Position: [facility] RN Member Role: Primary Care Nurse Name: Nehal Pate Position: [facility] RN Member Role: Primary Care Nurse Name: Yo Tolbert RN Position: [facility] RN Member Role: Primary Care Nurse Name: Dajuan Martinez RN Position: [facility] RN Member Role: Primary Care Nurse Name: Scott Lou MD Position: [facility] Physician - Behavioral Health Member Role: Lifetime Consulting Physician Address: Address: [address] [place] [address]- Care Team Related Persons Name: ZINA MOHAN Address: [place] [address] Name: ZINA JONES Address: [place] [address]
--- OUTSIDE RECORDS SUMMARY | 2023-10-26 11:05 | XMS_ITS | Continuity of Care Document ---
Author Organization [facility] Address [address] [address]- Care Team Providers Care Timekeeper Supervisor Name Role Phone Porter Noriega MD Primary Care Physician [phone] Encounter [facility] Date(s): 02/29/20 - 03/30/[address] [address]- [facility] Attending Physician: Admtr, Ar8 Admitting Physician: Admtr, Ar8 Referring Physician: Admtr, Ar8 Allergies, Adverse Reactions, [...] tablet, 11 Refills, Maintenance, 09/21/19 13:40:00 EDT, [facility] #[facility], refill when due, 161, cm, 09/20/19 9:35:00 EDT, Height, 55.5, kg, 09/18/19 22:53:00EDT, Dry Weight Start Date: 09/21/19 Status: Ordered FLUoxetine 20 mg oral capsule See Instructions, TAKE ONE CAPSULE BY MOUTH ONCE DAILY, # 30 Unknown, Refills 11, Tot. Refills 11, 03/05/20 13:55:00 EDT, Instructions Replace Required Details, Route to Pharmacy Electronically, [facility], 161, cm, 01/21/20 14:01:00 EDT, [facility]... Start Date: 03/05/20 Status: Ordered FLUoxetine 20 mg oral capsule 20 mg, 1, capsule, By Mouth, Daily, # 30 capsule, Refills 0, Tot. Refills 0, Maintenance, 12/20/19 15:42:00 EDT, Route to Pharmacy Electronically, [facility] #[facility], dose increased from 10 mg, 160, cm, 10/08/19 8:40:00 EDT, Height, 53.6, kg, 10/05/19... Start Date: 12/20/19 Status: Ordered mirtazapine 7.5 mg oral tablet 1 tablet = 7.5 mg, By Mouth, Daily at bedtime, # 30 tablet, 11 Refills, Maintenance, 03/18/20 12:38:00 EDT, Tablet, [facility], 161, cm, 01/21/20 14:01:00 EDT, Height, 51.9, kg, 02/01/20 14:41:00 EDT, Dry Weight Start Date: 03/18/20 Status: Ordered Plavix 75 mg oral tablet 75 mg, 1, tablet, By Mouth, Daily, # 30 tablet, Refills 11, Tot. Refills 11, Maintenance, 03/05/20 12:36:00 EDT, Route to Pharmacy Electronically, [facility], 161, cm, 01/21/20 14:01:00 EDT, [...] of blood transfusion s as patient is Roman Catholic(Confirmed) Active Multinodular goiter - FNA 2008; followed by Dr. Rosado(Confirmed) Active TIA (transient ischemic attack)(Confirmed) Active Vitamin D deficiency(Confirmed) Active Social History Social History Type Response Smoking Status Former smoker; Other : minimal use, quit decades ago; entered on: 05/01/16 Sex
--- OUTSIDE RECORDS SUMMARY | 2023-10-26 11:05 | XMS_ITS | Continuity of Care Document ---
Author Organization [facility] Address [address] [place] [address]- Care Team Providers Care Private Mortgage Banker Safe Name Role Phone Hari NEELY, Porter Mendez Primary Care Physician [phone] Encounter [facility] Date(s): 02/12/20 - 03/13/20 [facility] [address] [place] [address]- [facility] Allergies, Adverse Reactions, Alerts [...] Required Details, Route to Pharmacy Electronically, [facility], 161, cm, 01/21/20 14:01:00 EDT, He[facility]... Start Date: 03/05/20 Status: Ordered FLUoxetine 20 mg oral capsule 20 mg, 1, capsule, By Mouth, Daily, # 30 capsule, Refills 0, Tot. Refills 0, Maintenance, 12/20/19 15:42:00 EDT, Route to Pharmacy Electronically, [facility], dose increased from 10 mg, [...] 03/05/20 12:36:00 EDT, Route to Pharmacy Electronically, [facility], 161, cm, 01/21/20 14:01:00 [...] of blood transfusion s as patient is Zoroastrianism(Confirmed) Active Multinodular goiter - FNA 2008; followed by Dr. Rosado(Confirmed) Active TIA (transient ischemic attack)(Confirmed) Active Vitamin D deficiency(Confirmed) Active Social History Social History Type Response Smoking Status Former smoker; Other : minimal use, quit decades ago; entered on: 05/01/16 Sex
--- OUTSIDE RECORDS SUMMARY | 2023-10-26 11:05 | XMS_ITS | Continuity of Care Document ---
Author Organization [facility] Address [address] [place] [address]- Care Team Providers Care Cementer Oil Well Name Role Phone Hari NEELY, Porter Mendez Primary Care Physician [phone] [facility] [facility] [place] 02/12/22 - 03/14/22 [facility] [address] [place], [place] [address] Attending Physician: AdmYo colbert Admitting Physician: Admtr, Yo Referring Physician: Admtr, Ar8 Allergies, Adverse Reactions, [...] tablet, 5 Refills, Maintenance, 03/11/22 9:30:00 EDT, [facility], refill when due, 160, cm, 10/07/21 13:18:00 EDT, Height, 55, kg, 07/05/21 12:11:00 EST, Dry Weight Start Date: 03/11/22 Status: Ordered clopidogrel 75 mg oral tablet 1, tablet, By Mouth, Daily, # 30 tablet, Refills 11, Tot. Refills 11, 03/11/22 10:00:00 EDT, Route to Pharmacy Electronically, [facility], 160, cm, 10/07/21 [...] Replace Required Details, Route to Pharmacy Electronically, [facility], 160, cm, 10/07/21 13:18:00 EDT, [...] AT BEDTIME, # 30 tablet, 5 Refills, [facility], 161, cm, 01/21/20 14:01:00 EDT, Height, 51.9, kg, 02/01/20 14:41:00 EDT, Dry Weight Start Date: 06/07/21 Status: Ordered Problem List Condition Effective Dates Status Health Status Inform ant Anxiety(Confirmed) Active H/O Clostridium difficile in fection requiring admission 01/2016(Confirmed) Active H/O herpes zoster(Confirmed) Active Injury of right wrist(Confirmed) 01/21/20 Active 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 Alcaraz(Confirmed) Active Refusal of blood transfusion s as patient is Methodist(Confirmed) Active Multinodular goiter - FNA 2008; followed by Dr. Rosado(Confirmed) Active TIA (transient ischemic attack)(Confirmed) Active Vitamin D deficiency(Confirmed) Active Social History Social History Type Response Smoking Status Former smoker; Other : minimal use, quit decades ago; entered on: 05/01/16 Sex Care Team Personnel Name: Porter Noriega MD Address: [address] [place] [address] Adult & Pediatric Medicine [address]
--- OUTSIDE RECORDS SUMMARY | 2023-10-26 11:05 | XMS_ITS | Continuity of Care Document ---
Author Organization [facility] Address [address] [place] [address]- Care Team Providers Care Drawstring Knotter Name Role Phone Porter Noriega MD Primary Care Physician [place] [facility] [place] 10[place]22 - 11/25/22 [facility] [address] [place], [place] [address] Allergies, Adverse Reactions, Alerts Substance Reaction Severity Status doxycycline Active Indocin Active Bactrim Active Aleve Active Demerol HCl Active fentaNYL Nausea and vomiting Active oxyCODONE Active Immunizations Given and Recorded Vaccine Date Status Refusal Reason [id number] 12y+ bivalent booster vax 05/13/22 Recorded influenza [...] vaccine, inactivated 03/02/14 Give n SARS-CoV-2 mRNA (qsvwzpb-bgvd-bogke) vax 11/01/21 Recorded SARS-CoV-2 (COVID-19) mRNA BNT-162b2 [...] tablet, 0 Refills, Maintenance, 09/08/22 13:56:00 EDT, [facility], refill when due, 160, cm, 10/07/21 13:18:00 EDT, Height, 55, kg, 07/05/21 12:11:00 EST, Dry Weight Start Date: 09/08/22 Status: Ordered clopidogrel 75 mg oral tablet 1, tablet, By Mouth, Daily, # 30 tablet, Refills 11, Tot. Refills 11, 03/11/22 10:00:00 EDT, Route to Pharmacy Electronically, [facility], 160, cm, 10/07/21 13:18:00 [...] 11/10/22 12:45:00 EDT, Route to Pharmacy Electronically, [facility], dose decrease, 160, cm, 10/14/2312:33:00 [...] Refusal of blood transfusions as patient is Shinto Confirmed Active Multinodular goiter - FNA 11/2008; followed by Dr. Rosado Confirmed Active TIA (transient ischemic attack) Confirmed Active Vitamin D deficiency Confirmed Active Social History Social History Type Response Smoking Status Former smoker; Other : minimal use, quit decades ago; entered on: 05/01/16 Sex Patient Care team information Care Team Personnel Name: Birgit Sethi RN Position: [facility] RN Member Role: Primary Care Nurse Name: Porter Noriega MD Position: [facility] Physician - Primary Care Member Role: PCP Address: Address: [address] [place] [address] Adult & Pediatric Medicine [address] Name: Vianey Lockwood RN Position: [facility] SN RN Member Role: Primary Care Nurse Name: Hiwot Donaldson [place] Position: [facility] RN Member Role: Primary Care Nurse Name: Nehal Pate Position: [facility] RN Member Role: Primary Care Nurse Name: Christina Cardenas RN Position: [facility] RN Member Role: Primary Care Nurse Name: Dajuan Martinez RN Position: [facility] ED RN W/OE and Tasks Member Role: Primary Care Nurse Name: Scott Lou MD Position: [facility] Physician - Behavioral Health Member Role: Lifetime Consulting Physician Address: Address: [address] [place] [address]- Care Team Related Persons Name: ZINA MOHAN Address: [address] [address] Name: ZINA JONES Address: [address] [address]
--- OUTSIDE RECORDS SUMMARY | 2023-10-26 11:05 | XMS_ITS | Continuity of Care Document ---
Author Organization [facility] Address [address] [place] [address]- Care Team Providers Care Sap Solution Manager Consultant Name Role Phone Hari NEELY, Porter Mendez Primary Care Physician [facility] Date(s): 03/05/20 - 04/04/20 [facility] [address] [place] [address]- [facility] Allergies, Adverse Reactions, Alerts Substance Reaction Severity [...] 12/20/19 15:42:00 EDT, Route to Pharmacy Electronically, [facility], dose increased from 10 mg, 160, cm, 10/08/19 8:40:00 EDT, Height, 53.6, kg, 10/05/19... Start Date: 12/20/19 Status: Ordered mirtazapine 7.5 mg oral tablet 1 tablet = 7.5 mg, By Mouth, Daily at bedtime, # 30 tablet, 11 Refills, Maintenance, 03/18/20 12:38:00 EDT, Tablet, [facility] #[facility], 161, cm, 01/21/20 14:01:00 EDT, Height, 51.9, kg, 02/01/20 14:41:00 EDT, Dry Weight Start Date: 03/18/20 Status: Ordered Plavix 75 mg oral tablet 75 mg, 1, tablet, By Mouth, Daily, # 30 tablet, Refills 11, Tot. Refills 11, Maintenance, 03/05/20 12:36:00 EDT, Route to Pharmacy Electronically, [facility], 161, cm, 01/21/20 [...] of blood transfusion s as patient is Baptism(Confirmed) Active Multinodular goiter - FNA 2008; followed by Dr. Rosado(Confirmed) Active TIA (transient ischemic attack)(Confirmed) Active Vitamin D deficiency(Confirmed) Active Social History Social History Type Response Smoking Status Former smoker; Other : minimal use, quit decades ago; entered on: 05/01/16 Sex
--- OUTSIDE RECORDS SUMMARY | 2023-10-26 11:05 | XMS_ITS | Continuity of Care Document ---
Author Organization [facility] Address [address] [place] [address]- Care Team Providers Care Coke Loader Name Role Phone Porter Noriega MD Primary Care Physician [phone] Encounter [facility] Date(s): 08/23/19 - 08/30/19 [facility] [address] [place] [address]- [facility] Encounter Diagnosis Anxiety(Discharge Diagnosis) - 08/23/19 Polymyalgia rheumatica(Discharge Diagnosis) - 08/23/19 Attending Physician: Porter Noriega MD Allergies, Adverse Reactions, Alerts Substance Reaction Severity Status Indocin Active Bactrim Active Aleve Active Demerol HCl Active fentaNYL Nausea and vomiting Active oxyCODONE Active Immunizations Given and Recorded Vaccine Date Status Refusal Reason pneumococcal 13-valent vaccine 08/05/16 Given influenza virus vaccine, inactivated 04/29/16 Give n influenza virus vaccine, inactivated 03/02/14 Give n tetanus/diphtheria/pertussis, acel(Tdap) 02/10/13 Given pneumococcal 23-valent vaccine 08/19/09 Given pneumococcal 23-valent vaccine 03/21/01 Given Medications Daily Multi oral tablet 1 tablet, By Mouth, Daily, 0 Refills, Maintenance, 04/02/16 12:47:09 Start Date: 04/02/16 Status: Ordered MiraLax oral powder for reconstitution = 17 Gm, By Mouth, Daily, dissolve in water before taking, # 255 Gm, 0 Refills, Maintenance, 08/23/19 15:43:00 EST, REC Powder Start Date: 08/23/19 Status: Ordered mirtazapine 7.5 mg oral tablet See Instructions, one half tablet By Mouth Daily at bedtime, # 15 each, 11 Refills, Maintenance, 08/23/19 15:39:00 EST, Tablet, [facility], tablet dose change, refill when due, 160.65, cm, 08/23/19 15:19:00 EST, Height Start Date: 08/23/19 Status: Ordered predniSONE 1 mg oral tablet See Instructions, 4 tablet By Mouth Daily, 0 Refills, Maintenance, 08/23/19 15:42:00 EST Start Date: 08/23/19 Status: Ordered Probiotic Formula oral capsule 1 capsule, By Mouth, Daily, 0 Refills, Maintenance, 04/02/16 12:47:42 Start Date: 04/02/16 Status: Ordered Vitamin B12 = 1,000 mcg, By Mouth, Daily, 0 Refills, Maintenance, 10/22/16 11:49:25 EDT Start Date: 10/22/16 Status: Ordered Problem List Condition Effective Dates Status Health Status Inform ant Anemia(Confirmed) Active Anxiety(Confirmed) Active H/O Clostridium difficile in fection requiring admission 01/2016(Confirmed) Active H/O herpes zoster(Confirmed) Active Hx of Lyme disease(Confirmed) Active History of basal cell carcinoma(Confirmed) Active DNR/DNI(Confirmed) Active 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 Alcaraz(Confirmed) Active Refusal of blood transfusion s as patient is Gnosticist(Confirmed) Active Multinodular goiter - FNA 2008; followed by Dr. Rosado(Confirmed) Active Vitamin D deficiency(Confirmed) Active Diagnosis Diagnosis Type Effective Dates Health Status Clinical Service Informant Anxiety Discharge Diagnosis 08/23/19 Polymyalgia rheumatica Discharge Diagnosis 08/23/19 Vital Signs Most recent to oldest [Reference Range]: 1 2 Height 160.65 cm (08/23/19 4:00 PM) 160.65 cm (08/23/19 3:19 PM) Weight 58.4 kg (08/23/19 3:19 PM) Oxygen Saturation [94-100 %] 98 % (08/23/19 3:19 PM) Pulse Rate [55-90 bpm] 75 bpm (08/23/19 3:19 PM) Body Mass Index [18.5-24.99] 22.63 (08/23/19 3:19 PM) Blood Pressure [90-138/55-84 mm Hg] 130/ 74mm Hg (08/23/19 4:00 PM) 142/82mm Hg *H* (08/23/19 3:19 PM) Blood pressure sites Arm, left (08/23/19 4:00 PM) Arm, left (08/23/19 3:19 PM) Social History Social History Type Response Smoking Status Former smoker; Other : minimal use, quit decades ago; entered on: 05/01/16 Sex
--- OUTSIDE RECORDS SUMMARY | 2023-10-26 11:05 | XMS_ITS | Continuity of Care Document ---
Author Organization [facility] Address [address] [place] [address]- Care Team Providers Care Video Production Coordinator Name Role Phone Hari NEELY, Porter Mendez Primary Care Physician [facility] Date(s): 01/08/20 - 02/07/20 [facility] [address] [place] [address]- [facility] Allergies, Adverse Reactions, Alerts Substance [...] tablet, 11 Refills, Maintenance, 09/21/19 13:40:00 EDT, [facility] #[facility], refill when due, 161, cm, 09/20/19 9:35:00 EDT, Height, 55.5, kg, 09/18/19 22:53:00EDT, Dry Weight Start Date: 09/21/19 Status: Ordered FLUoxetine 20 mg oral capsule 20 mg, 1, capsule, By Mouth, Daily, # 30 capsule, Refills 0, Tot. Refills 0, Maintenance, 12/20/19 15:42:00 EDT, Route to Pharmacy Electronically, [facility] #[facility], dose increased from 10 mg, [...] 10/16/19 8:15:00 EDT, Route to Pharmacy Electronically, [facility] #[facility], 160, cm, 10/08/19 8:40:00 EDT, [...]
--- OUTSIDE RECORDS SUMMARY | 2023-10-26 11:05 | XMS_ITS | Continuity of Care Document ---
Author Organization [facility] Address [address] [place] [address]- Care Team Providers Care Masonry Contractor Name Role Phone Porter Noriega MD Primary Care Physician Encounter [facility] Date(s): 05/18/23 - 06/17/23 [facility] [address] [place], [place] [address] Allergies, Adverse Reactions, Alerts Substance Reaction Severity Status doxycycline Active Indocin Active Bactrim Active Aleve Active Demerol HCl Active fentaNYL Nausea and vomiting Active oxyCODONE Active Immunizations Given and Recorded Vaccine Date Status Refusal Reason [id number] 12y+ bivalent booster vax 05/13/22 Recorded influenza [...] vaccine, inactivated 03/02/14 Give n SARS-CoV-2 mRNA ([id number]) vax 11/01/21 Recorded SARS-CoV-2 (COVID-19) mRNA BNT-162b2 vac 04/30/21 Recorded SARS-CoV-2 (COVID-19) mRNA BNT-162b2 vac 10/16/20 Recorded SARS-CoV-2 (COVID-19) mRNA BNT-162b2 vac 09/24/20 Recorded pneumococcal 13-valent vaccine 08/05/16 Given tetanus/diphtheria/pertussis, acel(Tdap) 02/10/13 Given pneumococcal 23-valent vaccine 08/19/09 Given pneumococcal 23-valent vaccine 03/21/01 Given Medications clopidogrel 75 mg oral tablet 1, tablet, [...] 11/10/22 12:45:00 EDT, Route to Pharmacy Electronically, [facility] #[facility], dose decrease, 160, [...] Refusal of blood transfusions as patient is Taoism Confirmed Active Multinodular goiter - FNA 11/2008; followed by Dr. Rosado Confirmed Active TIA (transient ischemic attack) Confirmed Active Vitamin D deficiency Confirmed Active Social History Social History Type Response Smoking Status Former smoker; Other : minimal use, quit decades ago; entered on: 05/01/16 Sex Patient Care team information Care Team Personnel Name: Bigrit Sethi RN Position: [facility] RN Member Role: Primary Care Nurse Name: Christina Villa RN Position: [facility] RN Member Role: Primary Care Nurse Name: Porter Noriega MD Position: [facility] Physician - Primary Care Member Role: PCP Address: Address: [address] [place] [address] [facility] [address] Name: Vianey Lockwood RN Position: [facility] ED RN W/OE and Tasks Member Role: Primary Care Nurse Name: Hiwot Donaldson [place] Position: [facility] RN Member Role: Primary Care Nurse Name: Nehal Pate Position: [facility] RN Member Role: Primary Care Nurse Name: Yo Tolbert RN Position: [facility] RN Member Role: Primary Care Nurse Name: Dajuan Martinez RN Position: [facility] RN Member Role: Primary Care Nurse Name: Scott Lou MD Position: [facility] Physician - Behavioral Health Member Role: Lifetime Consulting Physician Address: Address: [address] [place] [address] Care Team Related Persons Name: ZINA MOHAN Address: home [address] [place] [id number] Name: JONES, ZINA Address: home [address] [place] [address]
--- OUTSIDE RECORDS SUMMARY | 2023-10-26 11:05 | XMS_ITS | Continuity of Care Document ---
Author Organization [facility] Address [address] [place] [address]- Care Team Providers Care White Sugar Syrup Operator Name Role Phone Porter Noriega MD Primary Care Physician Encounter [facility] Date(s): 07/14/23 - 07/21/23 [facility] [address] [place], [place] [address] Encounter Diagnosis Right groin mass(Discharge Diagnosis) - 07/14/23 Recurrent urinary tract infection; h/o hydronephrosis; urologist Dr. Alcaraz (Discharge Diagnosis) - 07/14/23 Anxiety(Discharge Diagnosis) - 07/14/23 TIA (transient ischemic attack)(Discharge Diagnosis) - 07/14/23 Attending Physician: Porter Noriega MD Allergies, Adverse Reactions, Alerts Substance Reaction Severity Status doxycycline Active Indocin Active Bactrim Active Aleve Active Demerol HCl Active fentaNYL Nausea and vomiting Active oxyCODONE Active Immunizations Given and Recorded Vaccine Date Status Refusal Reason [id number] 12y+ bivalent booster vax 05/13/22 Recorded influenza [...] vaccine, inactivated 03/02/14 Give n SARS-CoV-2 mRNA ([id number]) vax 11/01/21 Recorded SARS-CoV-2 (COVID-19) mRNA BNT-162b2 [...] tablet, 3 Refills, Maintenance, 06/30/23 7:52:00 EST, [facility] #[facility], refill when due, 160, cm, 05/17/23 15:15:00 EST, Height, 55, kg, 05/17/23 5:19:00 EST, Dry Weight Start Date: 06/30/23 Status: Ordered clopidogrel 75 mg oral tablet 1, tablet, By Mouth, Daily, for 90 days, # 90 tablet, Refills 3, Tot. Refills 3, Physician Stop 07/08/24 14:41:00 EST, 07/14/23 14:41:00 EST, Route to Pharmacy Electronically, [facility] #[facility], 160, cm, 07/14/23 14:21:00 EST, [...] 11/10/22 12:45:00 EDT, Route to Pharmacy Electronically, [facility] #[facility], dose decrease, 160, cm, 10/14/2312:33:00 [...] Refusal of blood transfusions as patient is Sabianist Confirmed Active Multinodular goiter - FNA 11/2008; followed by Dr. Rosado Confirmed Active TIA (transient ischemic attack) Confirmed Active Vitamin D deficiency Confirmed Active Diagnosis Diagnosis Type Effective Dates Health Status Cl inical Service Informant Right groin mass Discharge Diagnosis 07/14/23 Recurrent urinary tract infection; h/o hydronephrosis; urologist Dr. Alcaraz Discharge Diagnosis 07/14/23 Anxiety Discharge Diagnosis 07/14/23 TIA (transient ischemic attack) Discharge Diagnosis 07/14/23 Vital Signs Most recent to oldest [Reference Range]: 1 Height 160 cm (07/14/23 2:21 PM) Weight 53.5 kg (07/14/23 2:21 PM) Oxygen Saturation [94-100 %] 100 % (1/24/24 2:21 PM) Pulse Rate [55-90 bpm] 69 bpm (07/14/23 2:21 PM) Body Mass Index [18.5-24.99 kg/m2] 20.9 kg/m2 (07/14/23 2:21 PM) Blood Pressure [90-138/55-84 mm Hg] 130/ 83mm Hg (07/14/23 2:21 PM) Mode of Delivery (Oxygen) Room air (07/14/23 2:21 PM) Blood pressure sites Arm, left (07/14/23 2:21 PM) Dry Weight 53.5 kg (07/14/23 2:21 PM) Weight Obtained Via Standing scale (07/14/23 2:21 PM) Dry Weight Obtained Via Standing scale (07/14/23 2:21 PM) Social History Social History Type Response Smoking Status Former smoker; Other : minimal use, quit decades ago; entered on: 05/01/16 Sex Note * Arlet Medina: PERFORM, SIGN, VERIFY Event Display: Patient Education/Instruction Authored Date: [id number] [facility] Clinical Summary Name YO ADAME Age 87 Years 1935 PCP Porter Noriega MD PCP Visit Date 07/14/2023 14:02:00 Patient Instructions continue??current medication, diet/supplements, and cautious activity; try elevating feet and limiting fluid in evening; will check lab next visit; call if any question or problem Additional Instructions: Scheduled Appointments?? Future Appointments ?No Future Appointments Scheduled Follow-Up Instructions ?? Diagnosis Medications: Please continue your medications until treatment is completed or stopped by your provider. Discuss any questions related to medications with your provider. Medications to Continue Taking That Have Changed [facility], [address] [place], [place] [id number], [phone] - Clopidogrel (clopidogrel 75 mg oral tablet) 1 tab(s) Oral Daily for 90 Days. Refills: 3. Next Dose: Medications to Continue with No Changes These medications were not printed or sent to your pharmacy Atorvastatin (atorvastatin 10 mg oral tablet) 1 tab(s) Oral Daily. Refills: 3. Next Dose: Docusate (docusate sodium 100 mg oral capsule) 1 capsule Oral Daily. Next Dose: Fluoxetine (FLUoxetine 10 mg oral capsule) 1 capsule Oral Daily. Refills: 3. Next Dose: Mirtazapine (mirtazapine 7.5 mg oral tablet) TAKE ONE TABLET BY MOUTH AT BEDTIME. Refills: 11. Next Dose: Polyethylene Glycol 3350 (MiraLax oral powder for reconstitution) 17 gram Oral Daily as needed constipation. dissolve in water before taking. Next Dose: Psyllium (Metamucil 3.4 gm/5.2 gm oral powder for reconstitution) 3.4 gram Oral Daily. dissolve in 8 oz of fluid. Next Dose: Allergy Info:?? oxyCODONE; fentaNYL; Demerol HCl; Aleve; Bactrim; Indocin; doxycycline Medications Given This Visit Future Orders ?No future orders Vital Signs Height 160 cm Weight 53.5 kg BMI 20.9 kg/m2 Blood Pressure 130 mm Hg/83 mm Hg Temperature Pulse Rate 69 bpm Respiratory Rate 02 Sat Mode of Delivery 100 %/Room air You can now view a summary of your hospital visit from the comfort of your home through a free online portal called [employer]). [employer]) is a website that allows you to securely view your medical information including discharge summary, medications and follow-up visits. ??You can alsosend a secure electronic message to your doctor???s office to request appointments, renew medications or just ask a question. You can enroll at [email or web address] or register during your next office visit. Disclaimer:?? The information provided is of a general nature and is intended to be used in conjunction with the recommendations and advice of your health care practitioner. ??Every effort has been made to ensure that the information provided is accurate and complete at the time it is provided to you however, as your needs change, or, as new ??information becomes available, different or additional instructions may be required. If you have questions, please consult with your primary care provider or pharmacist, as appropriate. ??This information is not intended to serve as substitution for assessment and evaluation by a qualified health care provider. If you do not have a primary care provider, you may find a [facility] provider by calling [facility] Link at [phone]. [facility], in keeping with [facility] guidance, no longer requires face masks for staff, patientsor visitors in most situations. Similar to time spent indoors at other locations, there is the chance that you were exposed to respiratory viruses during your time with us (such as flu or COVID-19).? If you develop symptoms concerning for a viral respiratory infection, please seek testing (and treatment if indicated) from your medical provider or home test kit. For information about the plan of care including goals and instructions for your diagnosis, please see the patient education orders section of this document. Patient Education Materials?? The content of this educational material or handout may have been modified, supplemented, or adapted from its original content and format to support your individualized medical care. Patient Care team information Care Team Personnel Name: Birgit Sethi RN Position: [facility] RN Member Role: Primary Care Nurse Name: Christina Villa RN Position: [facility] RN Member Role: Primary Care Nurse Name: Porter Noriega MD Position: [facility] Physician - Primary Care Member Role: PCP Address: Address: [address] [place] [address] Adult [place] [address]- [place] Name: Vianey Lockwood RN Position: [facility] RN Member Role: Primary Care Nurse Name: Hiwot Donaldson [place] Position: [facility] RN Member Role: Primary Care Nurse Name: Nehal Pate Position: [facility] RN Member Role: Primary Care Nurse Name: Yo Tolbert RN Position: [facility] RN Member Role: Primary Care Nurse Name: Dajuan Martinez RN Position: [facility] RN Member Role: Primary Care Nurse Name: Scott Lou MD Position: [facility] Physician - Behavioral Health Member Role: Lifetime Consulting Physician Address: Address: [address] [place] [address]- Care Team Related Persons Name: ZINA MOHAN Address: [address] [address] Name: ZINA JONES Address: [address] [address]
--- OUTSIDE RECORDS SUMMARY | 2023-10-26 11:05 | XMS_ITS | Continuity of Care Document ---
Author Organization [facility] Address [address] [place] [address]- Care Team Providers Care Databases Software Consultant Name Role Phone Hari NEELY, Porter Mendez Primary Care Physician [phone] [place] [facility] [place] 12/20[place]19 - 01/19/20 [facility] [address] [place] [address]- [facility] Allergies, Adverse Reactions, Alerts Substance Reaction Severity [...] 12/20/19 15:42:00 EDT, Route to Pharmacy Electronically, [facility], dose increased from 10 mg, [...] 10/16/19 8:15:00 EDT, Route to Pharmacy Electronically, [facility] #[facility], 160, cm, 10/08/19 8:40:00 EDT, [...] of blood transfusion s as patient is Mosque(Confirmed) Active Multinodular goiter - FNA 2008; followed by Dr. Rosado(Confirmed) Active TIA (transient ischemic attack)(Confirmed) Active Vitamin D deficiency(Confirmed) Active Social History Social History Type Response Smoking Status Former smoker; Other : minimal use, quit decades ago; entered on: 05/01/16 Sex
--- OUTSIDE RECORDS SUMMARY | 2023-10-26 11:05 | XMS_ITS | Continuity of Care Document ---
Author Organization [facility] Address [address] [place] [address]- Care Team Providers Care Stoner Hand Name Role Phone Hari NEELY, Porter Mendez Primary Care Physician [facility]counter [facility] Date(s): 02/29/20 - 03/30/20 [facility] [address] [place] [address]- [facility] Allergies, Adverse Reactions, Alerts Substance Reaction Severity [...] 12/20/19 15:42:00 EDT, Route to Pharmacy Electronically, [facility], dose increased from 10 mg, 160, cm, 10/08/19 8:40:00 EDT, Height, 53.6, kg, 10/05/19... Start Date: 12/20/19 Status: Ordered mirtazapine 7.5 mg oral tablet 1 tablet = 7.5 mg, By Mouth, Daily at bedtime, # 30 tablet, 11 Refills, Maintenance, 03/18/20 12:38:00 EDT, Tablet, [facility], 161, cm, 01/21/20 14:01:00 EDT, Height, 51.9, kg, 02/01/20 14:41:00 EDT, Dry Weight Start Date: 03/18/20 Status: Ordered Plavix 75 mg oral tablet 75 mg, 1, tablet, By Mouth, Daily, # 30 tablet, Refills 11, Tot. Refills 11, Maintenance, 03/05/20 12:36:00 EDT, Route to Pharmacy Electronically, [facility], 161, cm, 01/21/20 14:01:00 [...] of blood transfusion s as patient is Religion(Confirmed) Active Multinodular goiter - FNA 2008; followed by Dr. Rosado(Confirmed) Active TIA (transient ischemic attack)(Confirmed) Active Vitamin D deficiency(Confirmed) Active Social History Social History Type Response Smoking Status Former smoker; Other : minimal use, quit decades ago; entered on: 05/01/16 Sex
--- OUTSIDE RECORDS SUMMARY | 2023-10-26 11:05 | XMS_ITS | Continuity of Care Document ---
Author Organization [facility] Address [address] [place] [address]- Care Team Providers Care Mortgage Accounting Clerk Name Role Phone Porter Noriega MD Primary Care Physician [place] [facility] [place] 09/02/20 [facility] [address] [place] [address]- Encounter Diagnosis TIA (transient ischemic attack)(Discharge Diagnosis) - 08/26/20 Polymyalgia rheumatica(Discharge Diagnosis) - 08/26/20 Anxiety(Discharge Diagnosis) - 08/26/20 Attending Physician: Porter Noriega MD Allergies, Adverse Reactions, Alerts Substance Reaction Severity Status doxycycline Active Indocin Active Demerol HCl Active fentaNYL Nausea and vomiting Active oxyCODONE Active Bactrim Active Aleve Active Immunizations Given and Recorded Vaccine Date Status Refusal Reason pneumococcal 13-valent vaccine 08/05/16 Given influenza virus vaccine, inactivated 04/29/16 Give n influenza virus vaccine, inactivated 03/02/14 Give n tetanus/diphtheria/pertussis, acel(Tdap) 02/10/13 Given pneumococcal 23-valent vaccine 08/19/09 Given pneumococcal 23-valent vaccine 03/21/01 Given Medications atorvastatin 10 mg oral tablet 1 tablet = 10 mg, By Mouth, Daily, # 30 tablet, 11 Refills, Maintenance, 08/26/20 15:50:00 [facility], [facility], refill when due, 161, cm, 01/21/20 14:01:00 EDT, Height, 51.9, kg, 02/01/20 14:41:00 EDT, Dry Weight Start Date: 08/26/20 Status: Ordered docusate sodium 100 mg oral [...] Details, Route to Pharmacy Electronically, [facility], 161, cm, 01/21/20 14:01:00 EDT, [place]... Start Date: 03/05/20 Status: Ordered MiraLax oral powder for reconstitution [...] tablet By Mouth Daily at bedtime, # 30 each, 11 Refills, Maintenance, 03/18/20 12:38:00 EDT, Tablet, [facility], 161, cm, 01/21/20 14:01:00 EDT, Height, 51.9, kg, 02/01/20 14:41:00 EDT, Dry Weight Start Date: 03/18/20 Status: Ordered Plavix 75 mg oral tablet 75 mg, 1, tablet, By Mouth, Daily, # 30 tablet, Refills 11, Tot. Refills 11, Maintenance, 03/05/20 12:36:00 EDT, Route to Pharmacy Electronically, [facility], 161, cm, 01/21/20 14:01:00 [...] Effective Dates Health Status Clinical Service Informant TIA (transient ischemic attack) Discharge Diagnosis 08/26/20 Polymyalgia rheumatica Discharge Diagnosis 08/26/20 Anxiety Discharge Diagnosis 08/26/20 Vital Signs Most recent to oldest [Reference Range]: 1 Height 0 cm (08/26/20 3:29 PM) Weight 56.2 kg (08/26/20 3:29 PM) Oxygen Saturation [94-100 %] 99 % (08/26/20 3:29 PM) Pulse Rate [55-90 bpm] 74 bpm (08/26/20 3:29 PM) Blood Pressure [90-138/55-84 mm Hg] 124/ 70mm Hg (08/26/20 3:29 PM) Blood pressure sites Arm, left (08/26/20 3:29 PM) Social History Social History Type Response Smoking Status Former smoker; Other : minimal use, quit decades ago; entered on: 05/01/16 Sex
--- OUTSIDE RECORDS SUMMARY | 2023-10-26 11:05 | XMS_ITS | Continuity of Care Document ---
Author Organization [facility] Address [address] [place] [address]- Care Team Providers Care Pinion Sorter Name Role Phone Hari NEELY, Porter Mendez Primary Care Physician Encounter [facility] Date(s): 01/10/20 - 02/09/20 [facility] [address] [place] [address]- [facility] Allergies, Adverse Reactions, Alerts Substance Reaction [...] tablet, 11 Refills, Maintenance, 09/21/19 13:40:00 EDT, [facility], refill when due, 161, cm, 09/20/19 9:35:00 EDT, Height, 55.5, kg, 09/18/19 22:53:00EDT, Dry Weight Start Date: 09/21/19 Status: Ordered FLUoxetine 20 mg oral capsule 20 mg, 1, capsule, By Mouth, Daily, # 30 capsule, Refills 0, Tot. Refills 0, Maintenance, 12/20/19 15:42:00 EDT, Route to Pharmacy Electronically, [facility] #[facility], dose increased from 10 mg, [...] 10/16/19 8:15:00 EDT, Route to Pharmacy Electronically, [facility] #[facility], 160, cm, 10/08/19 8:40:00 EDT, [...] of blood transfusion s as patient is Anglican(Confirmed) Active Multinodular goiter - FNA 2008; followed by Dr. Rosado(Confirmed) Active TIA (transient ischemic attack)(Confirmed) Active Vitamin D deficiency(Confirmed) Active Social History Social History Type Response Smoking Status Former smoker; Other : minimal use, quit decades ago; entered on: 05/01/16 Sex
--- OUTSIDE RECORDS SUMMARY | 2023-10-26 11:05 | XMS_ITS | Continuity of Care Document ---
Author Organization [facility] Address [address] [place] [address]- Care Team Providers Care Banquet Pilot Name Role Phone Hari NEELY, Porter Mendez Primary Care Physician Encounter [facility] Date(s): 07/05/21 - 07/05/[address] [address]- Discharge Disposition: A-D/C Home Attending Physician: Patrick Mario MD Admitting Physician: Patrick Mario MD Referring Physician: Not on Staff, Referring [...] 30 tablet, 11 Refills, Maintenance, 08/26/20 15:50:00 EST, [facility], refill when due, 161, cm, 01/21/20 14:01:00 EDT, Height, 51.9, kg, 02/01/20 14:41:00 EDT, Dry Weight Start Date: 08/26/20 Status: Ordered clopidogrel 75 mg oral tablet 1, tablet, By Mouth, Daily, # 30 tablet, Refills 11, Route to Pharmacy Electronically, [facility], 161, cm, 01/21/20 14:01:00 EDT, Height, 51.9, kg, 02/01/20 14:41:00 EDT, Dry Weight Start Date: 03/21/21 Status: Ordered docusate sodium 100 mg oral [...] 30 Unknown, Refills 11, Tot. Refills 11, 03/10/21 13:00:00 EDT, Instructions Replace Required Details, Route to Pharmacy Electronically, [facility], 161, cm, 01/21/20 14:01:00 EDT, Heig... Start Date: 03/10/21 Status: Ordered MiraLax oral powder for reconstitution [...] AT BEDTIME, # 30 tablet, 5 Refills, [facility], 161, cm, [...] of blood transfusion s as patient is Yazdanism(Confirmed) Active Multinodular goiter - FNA 2008; followed by Dr. Rosado(Confirmed) Active TIA (transient ischemic attack)(Confirmed) Active Vitamin D deficiency(Confirmed) Active Vital Signs Most recent to oldest [Reference Range]: 1 2 3 Height 160 cm (07/05/21 12:11 PM) Weight 55 kg (07/05/21 12:11 PM) Oxygen Saturation [94-100 %] 98 % (07/05/21 2:26 PM) 98 % (07/05/21 12:25 PM) 98 % (07/05/21 12:11 PM) Pulse Rate [55-90 bpm] 63 bpm (07/05/21 2:26 PM) 55 bpm (07/05/21 12:25 PM) 61 bpm (07/05/21 12:11 PM) Blood Pressure [90-138/55-84 mm Hg] 172/75mm Hg *H* (07/05/21 2:26 PM) 168/62mm Hg *H* (07/05/21 12:25 PM) 160/115mm Hg *H* (07/05/21 12:11 PM) Respiratory Rate [16-30 br/min] 18 br/min (07/05/21 2:26 PM) 15 br/min *L* (07/05/21 12:25 PM) 16 br/min (07/05/21 12:11 PM) Temperature [96.8-100.4 DegF] 97.5 DegF (07/05/21 12:11 PM) Mode of Delivery (Oxygen) Room air (07/05/21 2:26 PM) Room air (07/05/21 12:25 PM) Room air (07/05/21 12:11 PM) Blood pressure sites Arm, left (07/05/21 2:26 PM) Arm, left (07/05/21 12:25 PM) Arm, left (07/05/21 12:11 PM) Temperature Route Oral (07/05/21 12:11 PM) Dry Weight 55 kg (07/05/21 12:11 PM) Social History Social History Type Response Smoking Status Former smoker; Other : minimal use, quit decades ago; entered on: 05/01/16 Sex
--- OUTSIDE RECORDS SUMMARY | 2023-10-26 11:05 | XMS_ITS | Continuity of Care Document ---
Author Organization [facility] Address [address] [place] [address]- Care Team Providers Care Cocktail Waitress Name Role Phone Porter Noriega MD Primary Care Physician [phone] [place] [facility] [place] 12/13[place]19 - 12/20/19 [facility] [address] [place] [address]- [facility] Encounter Diagnosis Anxiety(Discharge Diagnosis) - 12/13/19 Polymyalgia rheumatica(Discharge Diagnosis) - 12/13/19 Fall at home(Discharge Diagnosis) - 12/13/19 Constipation(Discharge Diagnosis) - 12/13/19 Attending Physician: Porter Noriega MD Allergies, Adverse [...] tablet, 11 Refills, Maintenance, 09/21/19 13:40:00 EDT, [facility] #[facility], refill when due, 161, cm, 09/20/19 9:35:00 EDT, Height, 55.5, kg, 09/18/19 22:53:00EDT, Dry Weight Start Date: 09/21/19 Status: Ordered FLUoxetine 20 mg oral capsule 20 mg, 1, capsule, By Mouth, Daily, # 30 capsule, Refills 0, Tot. Refills 0, Maintenance, 12/20/19 15:42:00 EDT, Route to Pharmacy Electronically, [facility] #[facility], dose increased from 10 mg, [...] 10/16/19 8:15:00 EDT, Route to Pharmacy Electronically, [facility] #[facility], 160, cm, 10/08/19 8:40:00 EDT, [...] of blood transfusion s as patient is Uatsdin(Confirmed) Active Multinodular goiter - FNA 2008; followed by Dr. Rosado(Confirmed) Active TIA (transient ischemic attack)(Confirmed) Active Vitamin D deficiency(Confirmed) Active Diagnosis Diagnosis Type Effective Dates Health Status Clinical Service Informant Anxiety Discharge Diagnosis 12/13/19 Polymyalgia rheumatica Discharge Diagnosis 12/13/19 Fall at home Discharge Diagnosis 12/13/19 Constipation Discharge Diagnosis 12/13/19 Social History Social History Type Response Smoking Status Former smoker; Other : minimal use, quit decades ago; entered on: 05/01/16 Sex
--- OUTSIDE RECORDS SUMMARY | 2023-10-26 11:05 | XMS_ITS | Continuity of Care Document ---
Author Organization [facility] Address [address] [place] [address]- Care Team Providers Care Litigation Associate Name Role Phone Porter Noriega MD Primary Care Physician Encounter [facility] [place] Date(s): 10/04/19 - 11/03/[address] [address]- [facility] Attending Physician: Not on Staff, Attending MD Admitting Physician: Not on Staff, Admitting MD Referring Physician: Not on Staff, Referring [...] tablet, 11 Refills, Maintenance, 09/21/19 13:40:00 EDT, [facility] #[facility], refill when due, 161, [...] of blood transfusion s as patient is Scientologist(Confirmed) Active Multinodular goiter - FNA 2008; followed by Dr. Rosado(Confirmed) Active TIA (transient ischemic attack)(Confirmed) Active Vitamin D deficiency(Confirmed) Active Social History Social History Type Response Smoking Status Former smoker; Other : minimal use, quit decades ago; entered on: 05/01/16 Sex
--- OUTSIDE RECORDS SUMMARY | 2023-10-26 11:05 | XMS_ITS | Continuity of Care Document ---
Author Organization [facility] Address [address] [place] [address]- Care Team Providers Care Grinding And Spraying Supervisor Name Role Phone Porter Noriega MD Primary Care Physician En[place] [facility] [place] Date(s): 12/24/22 - 01/23/23 [facility] [address] [place], [place] [address] Allergies, Adverse Reactions, Alerts Substance Reaction Severity Status doxycycline Active Indocin Active Bactrim Active Aleve Active Demerol HCl Active fentaNYL Nausea and vomiting Active oxyCODONE Active Immunizations Given and Recorded Vaccine Date Status Refusal Reason [id number] 12y+ bivalent booster vax 05/13/22 Recorded influenza [...] vaccine, inactivated 03/02/14 Give n SARS-CoV-2 mRNA ([id number]) vax 11/01/21 Recorded SARS-CoV-2 (COVID-19) mRNA BNT-162b2 [...] 03/11/22 10:00:00 EDT, Route to Pharmacy Electronically, [facility], 160, cm, 10/07/21 13:18:00 [...] 11/10/22 12:45:00 EDT, Route to Pharmacy Electronically, [facility] #[facility], dose decrease, 160, cm, [...] Refusal of blood transfusions as patient is Spiritism Confirmed Active Multinodular goiter - FNA 11/2008; followed by Dr. Rosado Confirmed Active TIA (transient ischemic attack) Confirmed Active Vitamin D deficiency Confirmed Active Social History Social History Type Response Smoking Status Former smoker; Other : minimal use, quit decades ago; entered on: 05/01/16 Sex Patient Care team information Care Team Personnel Name: Birgit Sethi RN Position: [facility] SN RN Member Role: Primary Care Nurse Name: Porter Noriega MD Position: [facility] Physician - Primary Care Member Role: PCP Address: Address: [address] [place] [address] Adult [place] [address]- Name: Vianey Lockwood RN Position: [facility] SN RN Member Role: Primary Care Nurse Name: Hiwot Donaldson [place] Position: [facility] RN Member Role: Primary Care Nurse Name: Nehal Pate Position: [facility] RN Member Role: Primary Care Nurse Name: Christina Cardenas RN Position: [facility] RN Member Role: Primary Care Nurse Name: Dajuan Martinez RN Position: [facility] ED RN W/OE and Tasks Member Role: Primary Care Nurse Name: Scott Lou MD Position: [facility] Physician - Behavioral Health Member Role: Lifetime Consulting Physician Address: Address: [address] [place] [address] Care Team Related Persons Name: ZINA MOHAN Address: [address] [address] Name: ZINA JONES Address: [address] [address]
--- OUTSIDE RECORDS SUMMARY | 2023-10-26 11:05 | XMS_ITS | Continuity of Care Document ---
Author Organization [facility] Address [address] [place] [address]- Care Team Providers Care Chart Changer Name Role Phone Hari NEELY, Porter Mendez Primary Care Physician Encounter [facility] Date(s): 03/18/20 - 04/17/20 [facility] [address] [place] [address]- [facility] Allergies, Adverse Reactions, Alerts Substance [...] of blood transfusion s as patient is Presybeterian(Confirmed) Active Multinodular goiter - FNA 2008; followed by Dr. Rosado(Confirmed) Active TIA (transient ischemic attack)(Confirmed) Active Vitamin D deficiency(Confirmed) Active Social History Social History Type Response Smoking Status Former smoker; Other : minimal use, quit decades ago; entered on: 05/01/16 Sex
--- OUTSIDE RECORDS SUMMARY | 2023-10-26 11:05 | XMS_ITS | Continuity of Care Document ---
Author Organization [facility] Address [address] [place] [address]- Care Team Providers Care Tape Weaver Name Role Phone Porter Noriega MD Primary Care Physician [phone] Encounter [facility] Date(s): 12/10/20 - 01/09/21 [facility] [address] [place], [place] [address] Allergies, Adverse Reactions, Alerts Substance Reaction [...] tablet, 11 Refills, Maintenance, 08/26/20 15:50:00 EST, [facility], refill when due, 161, [...] Replace Required Details, Route to Pharmacy Electronically, [facility], 161, cm, 01/21/20 [...] 11 Refills, Maintenance, 03/18/20 12:38:00 EDT, Tablet, [facility], 161, cm, 01/21/20 14:01:00 EDT, Height, 51.9, kg, 02/01/20 14:41:00 EDT, Dry Weight Start Date: 03/18/20 Status: Ordered Plavix 75 mg oral tablet 75 mg, 1, tablet, By Mouth, Daily, # 30 tablet, Refills 11, Tot. Refills 11, Maintenance, 03/05/20 12:36:00 EDT, Route to Pharmacy Electronically, [facility], 161, cm, 01/21/20 [...] of blood transfusion s as patient is Moravian(Confirmed) Active Multinodular goiter - FNA 2008; followed by Dr. Rosado(Confirmed) Active TIA (transient ischemic attack)(Confirmed) Active Vitamin D deficiency(Confirmed) Active Social History Social History Type Response Smoking Status Former smoker; Other : minimal use, quit decades ago; entered on: 05/01/16 Sex
--- OUTSIDE RECORDS SUMMARY | 2023-10-26 11:06 | XMS_ITS | Continuity of Care Document ---
Author Organization [facility] Address [address] [place] [address]- Care Team Providers Care Echo Vasc Tech Name Role Phone Porter Noriega MD Primary Care Physician Encounter [facility] [place] Date(s): 10/04/19 - 10/11/19 [facility] [address] [place] [address]- [facility] Encounter Diagnosis Equilibrium disorder(Discharge Diagnosis) - 10/04/19 TIA (transient ischemic attack)(Discharge Diagnosis) - 10/04/19 PMR (polymyalgia rheumatica)(Discharge Diagnosis) - 10/04/19 Attending Physician: Porter Noriega MD Allergies, Adverse [...] 75 mg, 1, tablet, By Mouth, Daily, Refills 0, Maintenance, 10/05/19 17:06:00 EDT Start Date: 10/05/19 Status: Ordered predniSONE 5 mg oral tablet 2 tablet = 10 mg, By Mouth, Daily, Maintenance, 09/19/19 21:28:00 [...] of blood transfusion s as patient is Anabaptist(Confirmed) Active Multinodular goiter - FNA 2008; followed by Dr. Rosado(Confirmed) Active TIA (transient ischemic attack)(Confirmed) Active Vitamin D deficiency(Confirmed) Active Diagnosis Diagnosis Type Effective Dates Health Status Clinical Service Informant Equilibrium disorder Discharge Diagnosis 10/04/19 TIA (transient ischemic attack) Discharge Diagnosis 10/04/19 PMR (polymyalgia rheumatica) Discharge Diagnosis 10/04/19 Social History Social History Type Response Smoking Status Former smoker; Other : minimal use, quit decades ago; entered on: 05/01/16 Sex
--- OUTSIDE RECORDS SUMMARY | 2023-10-26 11:06 | XMS_ITS | Continuity of Care Document ---
Author Organization [facility] Address [address] [place] [address]- Care Team Providers Care Moccasin Sewer Name Role Phone Hari NEELY, Porter Mendez Primary Care Physician En[place] [facility] [place] Date(s): 02/12/22 - 02/19/22 [facility] [address] [place] [address]- Encounter Diagnosis Low back pain(Discharge Diagnosis) - 02/12/22 Attending Physician: Armando Eduardo MD Allergies, Adverse Reactions, Alerts Substance Reaction Severity Status doxycycline Active Indocin Active fentaNYL Nausea and vomiting Active oxyCODONE Active Demerol HCl Active Bactrim Active Aleve Active Immunizations Given [...] Daily, # 30 tablet, 5 Refills, Maintenance, 09/16/21 9:32:00 EDT, [facility], refill when due, 160, cm, 07/05/21 12:11:00 EST, Height, 55, kg, 07/05/21 12:11:00 EST, Dry Weight Start Date: 09/16/21 Status: Ordered clopidogrel 75 mg oral tablet 1, tablet, By Mouth, Daily, # 30 tablet, Refills 11, Route to Pharmacy Electronically, [facility], 161, cm, 01/21/20 14:01:00 EDT, [...] Replace Required Details, Route to Pharmacy Electronically, [facility] 161, cm, 01/21/20 14:01:00 EDT, Heig... Start Date: 03/10/21 Status: Ordered Metamucil 3.4 gm/5.2 gm oral [...] AT BEDTIME, # 30 tablet, 5 Refills, [facility] 161, cm, 01/21/20 14:01:00 EDT, Height, 51.9, [...] of blood transfusion s as patient is Catholic(Confirmed) Active Multinodular goiter - FNA 2008; followed by Dr. Rosado(Confirmed) Active TIA (transient ischemic attack)(Confirmed) Active Vitamin D deficiency(Confirmed) Active Diagnosis Diagnosis Type Effective Dates Health Status Cl inical Service Informant Low back pain Discharge Diagnosis 02/12/22 Social History Social History Type Response Smoking Status Former smoker; Other : minimal use, quit decades ago; entered on: 05/01/16 Sex Care Team Personnel Name: Porter Noriega MD Address: [address] [place] [address] [facility] [address]
--- OUTSIDE RECORDS SUMMARY | 2023-10-26 11:06 | XMS_ITS | Continuity of Care Document ---
Author Organization [facility] Magi Beauchamp [facility] Address [address] [address]- Care Team Providers Care Supervisor Brine Name Role Phone Porter Noriega MD Primary Care Physician [phone] Encounter [facility] Date(s): 02/01/20 - 02/08/[address] [address]- [facility] Attending Physician: Kojo Lopez MD Referring [...] 12/20/19 15:42:00 EDT, Route to Pharmacy Electronically, [facility], dose increased from 10 mg, [...] 10/16/19 8:15:00 EDT, Route to Pharmacy Electronically, [facility], 160, cm, 10/08/19 8:40:00 EDT, [...] of blood transfusion s as patient is Protestant(Confirmed) Active Multinodular goiter - FNA 2008; followed by Dr. Rosado(Confirmed) Active TIA (transient ischemic attack)(Confirmed) Active Vitamin D deficiency(Confirmed) Active Vital Signs Most recent to oldest [Reference Range]: 1 Height 0 cm (02/01/20 2:41 PM) Weight 51.9 kg (02/01/20 2:41 PM) Pulse Rate [55-90 bpm] 66 bpm (02/01/20 2:41 PM) Blood Pressure [90-138/55-84 mm Hg] 121/ 49mm Hg (02/01/20 2:41 PM) Temperature [96.8-100.4 DegF] 98.5 DegF (02/01/20 2:41 PM) Blood pressure sites Arm, left (02/01/20 2:41 PM) Temperature Route Tympanic (02/01/20 2:41 PM) Dry Weight 51.9 kg (02/01/20 2:41 PM) Weight Obtained Via Standing scale (02/01/20 2:41 PM) Dry Weight Obtained Via Standing scale (02/01/20 2:41 PM) Social History Social History Type Response Smoking Status Former smoker; Other : minimal use, quit decades ago; entered on: 05/01/16 Sex
--- OUTSIDE RECORDS SUMMARY | 2023-10-26 11:06 | XMS_ITS | Continuity of Care Document ---
Author Organization [facility] Address [address] [place] [address]- Care Team Providers Care Camp Nurse Name Role Phone Porter Noriega MD Primary Care Physician Encounter [facility] Date(s): 08/26/23 - 09/25/23 [facility] [address], [place] [address] Allergies, Adverse Reactions, Alerts Substance Reaction Severity Status doxycycline Active Indocin Active oxyCODONE Active Bactrim Active Aleve Active Demerol HCl Active fentaNYL Nausea and vomiting Active Immunizations Given and Recorded Vaccine Date Status Refusal Reason [id number] 12y+ bivalent booster vax 05/13/22 Recorded influenza [...] vaccine, inactivated 03/02/14 Give n SARS-CoV-2 mRNA ([id number]-[id number]) vax 11/01/21 Recorded SARS-CoV-2 (COVID-19) mRNA BNT-162b2 [...] tablet, 3 Refills, Maintenance, 06/30/23 7:52:00 EST, [facility] #66, refill when due, 160, cm, 05/17/23 15:15:00 EST, Height, 55, kg, 05/17/23 5:19:00 EST, Dry Weight Start Date: 06/30/23 Status: Ordered clopidogrel 75 mg oral tablet 1, tablet, By Mouth, Daily, for 90 days, # 90 tablet, Refills 3, Tot. Refills 3, Physician Stop 07/08/24 14:41:00 EST, 07/14/23 14:41:00 EST, Route to Pharmacy Electronically, [facility] #[facility], 160, cm, 07/14/23 14:21:00 [...] EDT, Route to Pharmacy Electronically, [facility] #[facility], dose decrease, 160, cm, [...] Refusal of blood transfusions as patient is Sikhism Confirmed Active Multinodular goiter - FNA 11/2008; followed by Dr. Rosado Confirmed Active TIA (transient ischemic attack) Confirmed Active Vitamin D deficiency Confirmed Active Social History Social History Type Response Smoking Status Former smoker; Other : minimal use, quit decades ago; entered on: 05/01/16 Sex Patient Care team information Care Team Personnel Name: Birgit Sethi RN Position: [facility] RN Member Role: Primary Care Nurse Name: Christina Villa RN Position: [facility] RN Member Role: Primary Care Nurse Name: Porter Noriega MD Position: [facility] Physician - Primary Care Member Role: PCP Address: Address: [address] [place] [address] Adult & Pediatric Medicine [address] Name: Vianey Lockwood RN Position: [facility] ED RN W/OE and Tasks Member Role: Primary Care Nurse Name: Hiwot Donaldson [place] Position: [facility] RN Member Role: Primary Care Nurse Name: Nehal Pate Position: [facility] RN Member Role: Primary Care Nurse Name: Yo Tolbert RN Position: [facility] RN Member Role: Primary Care Nurse Name: Dajuan Martinez RN Position: [facility] RN Member Role: Primary Care Nurse Name: Scott Lou MD Position: [facility] Physician - Behavioral Health Member Role: Lifetime Consulting Physician Address: Address: [address] [place] [address]- Care Team Related Persons Name: ZINA MOHAN Address: [place] [address] Name: ZINA JONES Address: [place] [address]
--- OUTSIDE RECORDS SUMMARY | 2023-10-26 11:06 | XMS_ITS | Continuity of Care Document ---
Author Organization [facility] Address [address] [place] [address]- Care Team Providers Care Ice Cream Freezer Helper Name Role Phone Porter Noriega MD Primary Care Physician [phone] Encounter [facility] Date(s): 09/11/22 - 10/11/22 [facility] [address] [place], [place] [address] Attending Physician: Yo Bello Admitting Physician: AdmtrYo Referring Physician: Admtr, [...] tablet, 0 Refills, Maintenance, 09/08/22 13:56:00 EDT, [facility] #[facility], refill when due, 160, cm, 10/07/21 13:18:00 EDT, Height, 55, kg, 07/05/21 12:11:00 EST, Dry Weight Start Date: 09/08/22 Status: Ordered Azithromycin 5 Day Dose Pack 250 mg oral tablet See Instructions, Take 2 tablets on day one. Take 1 tablet daily on Days 2-5., # 6 tablet, 0 Refills, Maintenance, 09/11/22 13:34:00 EDT, Tablet, [facility] #[facility], Partial fill upon patient requestif the prescription is for a schedule II opioid dr... Start Date: 09/11/22 Status: Ordered clopidogrel 75 mg oral tablet 1, tablet, By Mouth, Daily, # 30 tablet, Refills 11, Tot. Refills 11, 03/11/22 10:00:00 EDT, Route to Pharmacy Electronically, [facility] #[facility], 160, cm, 10/07/21 13:18:00 [...] Details, Route to Pharmacy Electronically, [facility] #[facility], 160, cm, 10/07/21 13:18:00 [...] Refusal of blood transfusions as patient is Pentecostal Confirmed Active Multinodular goiter - FNA 11/2008; followed by Dr. Rosado Confirmed Active TIA (transient ischemic attack) Confirmed Active Vitamin D deficiency Confirmed Active Social History Social History Type Response Smoking Status Former smoker; Other : minimal use, quit decades ago; entered on: 05/01/16 Sex Note * Event Display: Ultrasound Neck, Non- Authored Date: * Event Display: MRI Head, Non- Authored Date: * Event Display: MRI Head, Non- Authored Date: Patient Care team information Care Team Personnel Name: Birgit Sethi RN Position: [facility] SN RN Member Role: Primary Care Nurse Name: Porter Noriega MD Position: [facility] Primary Care Physician Member Role: PCP Address: Address: [address] [place] [address] Adult & Pediatric Medicine [address] Name: Vianey Lockwood RN Position: [facility] SN RN Member Role: Primary Care Nurse Name: Hiwot Boyle Position: [facility] RN Member Role: Primary Care Nurse Name: Nehal Pate Position: [facility] RN Member Role: Primary Care Nurse Name: Christina Cardenas RN Position: [facility] RN Member Role: Primary Care Nurse Name: Dajuan Martinez RN Position: [facility] ED RN W/OE and Tasks Member Role: Primary Care Nurse Name: Scott Lou MD Position: [facility] Psychiatry MD Member Role: Lifetime Consulting Physician Address: Address: [address] [place] [address] [place] [address]- Care Team Related Persons Name: ZINA MOHAN Address: [address] [address] Name: ZINA JONES Address: [address] [address]
--- OUTSIDE RECORDS SUMMARY | 2023-10-26 11:06 | XMS_ITS | Continuity of Care Document ---
Author Organization [facility] [place] Address [address] [place] [address]- Care Team Providers Care Cookie Breaker Name Role Phone Hari NEELY, Porter Mendez Primary Care Physician Encounter [facility] Date(s): 01/23/20 - 02/22/[address] [address] Allergies, Adverse Reactions, Alerts Substance Reaction Severity [...] tablet, 11 Refills, Maintenance, 09/21/19 13:40:00 EDT, [facility] #[facility], refill when due, 161, cm, 09/20/19 9:35:00 EDT, Height, 55.5, kg, 09/18/19 22:53:00EDT, Dry Weight Start Date: 09/21/19 Status: Ordered FLUoxetine 20 mg oral capsule 20 mg, 1, capsule, By Mouth, Daily, # 30 capsule, Refills 0, Tot. Refills 0, Maintenance, 12/20/19 15:42:00 EDT, Route to Pharmacy Electronically, [facility] #66, dose increased from 10 mg, [...] 10/16/19 8:15:00 EDT, Route to Pharmacy Electronically, [facility] #[facility], 160, cm, 10/08/19 8:40:00 EDT, [...]
--- OUTSIDE RECORDS SUMMARY | 2023-10-26 11:06 | XMS_ITS | Continuity of Care Document ---
Author Organization [facility] Address [address] [place] [address]- Care Team Providers Care Biostatistics Director Name Role Phone Porter Noriega MD Primary Care Physician Encounter [facility] Date(s): 09/20/20 - 10/20/20 [facility] [address] [place], [place] [address] Allergies, Adverse Reactions, Alerts Substance Reaction [...] tablet, 11 Refills, Maintenance, 08/26/20 15:50:00 EST, [facility] #[facility], refill when due, 161, cm, [...] [facility], 161, cm, 01/21/20 14:01:00 [...] Maintenance, 03/18/20 12:38:00 EDT, Tablet, [facility] #[facility], 161, cm, 01/21/20 14:01:00 EDT, Height, 51.9, kg, 02/01/20 14:41:00 EDT, Dry Weight Start Date: 03/18/20 Status: Ordered Plavix 75 mg oral tablet 75 mg, 1, tablet, By Mouth, Daily, # 30 tablet, Refills 11, Tot. Refills 11, Maintenance, 03/05/20 12:36:00 EDT, Route to Pharmacy Electronically, [facility] #[facility], 161, cm, 01/21/20 14:01:00 [...] of blood transfusion s as patient is Yarsanism(Confirmed) Active Multinodular goiter - FNA 2008; followed by Dr. Rosado(Confirmed) Active TIA (transient ischemic attack)(Confirmed) Active Vitamin D deficiency(Confirmed) Active Social History Social History Type Response Smoking Status Former smoker; Other : minimal use, quit decades ago; entered on: 05/01/16 Sex
--- OUTSIDE RECORDS SUMMARY | 2023-10-26 11:06 | XMS_ITS | Continuity of Care Document ---
Author Organization [facility] Address [address] [place] [address]- Care Team Providers Care Supervisor Cigar Making Hand Name Role Phone Porter Noriega MD Primary Care Physician Encounter [facility] Date(s): 05/18/23 - 06/17/23 [facility] [address] [place], [place] [address] Allergies, Adverse Reactions, Alerts Substance Reaction Severity Status doxycycline Active Indocin Active Bactrim Active Aleve Active Demerol HCl Active fentaNYL Nausea and vomiting Active oxyCODONE Active Immunizations Given and Recorded Vaccine Date Status Refusal Reason [id number] 12y+ bivalent booster vax 05/13/22 Recorded influenza [...] vaccine, inactivated 03/02/14 Give n SARS-CoV-2 mRNA ([id number]-hmpf-[id number]) vax 11/01/21 Recorded SARS-CoV-2 (COVID-19) mRNA BNT-162b2 [...] [facility], 160, cm, 10/07/21 13:18:00 [...] [facility] #[facility], dose decrease, 160, cm, [...] Refusal of blood transfusions as patient is Mandaeism Confirmed Active Multinodular goiter - FNA 11/2008; followed by Dr. Rosado Confirmed Active TIA (transient ischemic attack) Confirmed Active Vitamin D deficiency Confirmed Active Social History Social History Type Response Smoking Status Former smoker; Other : minimal use, quit decades ago; entered on: 05/01/16 Sex Patient Care team information Care Team Personnel Name: Birgit Sethi RN Position: [facility] RN Member Role: Primary Care Nurse Name: Christina Villa RN Position: [facility] RN Member Role: Primary Care Nurse Name: Porter Noriega MD Position: [facility] Physician - Primary Care Member Role: PCP Address: Address: [address] [place] [address] Adult & Pediatric Medicine [address] Name: Vianey Lockwood RN Position: [facility] ED RN W/OE and Tasks Member Role: Primary Care Nurse Name: Hiwot Donaldson [place] Position: [facility] RN Member Role: Primary Care Nurse Name: Nehal Pate Position: [facility] RN Member Role: Primary Care Nurse Name: Yo Tolbert RN Position: [facility] RN Member Role: Primary Care Nurse Name: Dajuan Martinez RN Position: [facility] RN Member Role: Primary Care Nurse Name: Scott Lou MD Position: [facility] Physician - Behavioral Health Member Role: Lifetime Consulting Physician Address: Address: [address] [place] [address] Care Team Related Persons Name: KIMBERLEEHALIMAEN Address: [address] [address] Name: ZINA JONES Address: home [address] [place] [address]
--- OUTSIDE RECORDS SUMMARY | 2023-10-26 11:06 | XMS_ITS | Continuity of Care Document ---
Author Organization [facility] Address [address] [place] [address]- Care Team Providers Care Security Solutions Engineer Name Role Phone Porter Noriega MD Primary Care Physician Encounter [facility] Date(s): 11/05/22 - 12/05/22 [facility] [address] [place], [place] [address] Allergies, Adverse Reactions, Alerts Substance Reaction Severity Status doxycycline Active Indocin Active Bactrim Active Aleve Active Demerol HCl Active fentaNYL Nausea and vomiting Active oxyCODONE Active Immunizations Given and Recorded Vaccine Date Status Refusal Reason [id number] 12y+ bivalent booster vax 05/13/22 Recorded influenza [...] vaccine, inactivated 03/02/14 Give n SARS-CoV-2 mRNA (bavtlht-fqfr-fwyqu) vax 11/01/21 Recorded SARS-CoV-2 (COVID-19) mRNA BNT-162b2 [...] tablet, 0 Refills, Maintenance, 09/08/22 13:56:00 EDT, [facility] #[facility], refill when due, 160, [...] Refusal of blood transfusions as patient is Gnosticist Confirmed Active Multinodular goiter - FNA 11/2008; [...] Care Nurse Name: Porter Noriega MD Position: [facility] Physician - Primary Care Member Role: PCP Address: Address: [address] [place] [address] Adult & Pediatric Medicine [address] Name: Vianey Lockwood RN Position: [facility] SN RN Member Role: Primary Care Nurse Name: Hiwot Donaldson [place] Position: [facility] RN Member Role: Primary Care Nurse Name: Nehal Pate Position: [facility] RN Member Role: Primary Care Nurse Name: Christina Cardenas RN Position: [facility] RN Member Role: Primary Care Nurse Name: Dajuan Martinez RN Position: [facility] ED RN W/OE and Tasks Member Role: Primary Care Nurse Name: Scott Lou MD Position: [facility] Physician - Behavioral Health Member Role: Lifetime Consulting Physician Address: Address: [address] [place] [address]- Care Team Related Persons Name: ZINA MOHAN Address: [address] [address] Name: ZINA JONES Address: [address] [address]
--- OUTSIDE RECORDS SUMMARY | 2023-10-26 11:06 | XMS_ITS | Continuity of Care Document ---
Author Organization [facility] Address [address] [place] [address]- Care Team Providers Care Heel Blacker Name Role Phone Porter Noriega MD Primary Care Physician Encounter [facility] Date(s): 02/09/23 - 03/11/23 [facility] [address] [place], [place] [address] Allergies, Adverse Reactions, Alerts Substance Reaction Severity Status doxycycline Active Indocin Active oxyCODONE Active Bactrim Active Aleve Active Demerol HCl Active fentaNYL Nausea and vomiting Active Immunizations Given and Recorded Vaccine Date Status Refusal Reason [id number] 12y+ bivalent booster vax 05/13/22 Recorded influenza [...] vaccine, inactivated 03/02/14 Give n SARS-CoV-2 mRNA (zcjeqhm-apel-ubpnz) vax 11/01/21 Recorded SARS-CoV-2 (COVID-19) mRNA BNT-162b2 [...] 03/11/22 10:00:00 EDT, Route to Pharmacy Electronically, [facility], 160, cm, 10/07/21 13:18:00 EDT, Height, 55, kg, 07/05/21 12:11:00 EST, Dry Weight Start Date: 03/11/22 Status: Ordered clopidogrel 75 mg oral tablet See Instructions, TAKE ONE TABLET BY MOUTH ONCE DAILY, # 30 tablet, Refills 11, Maintenance, 02/09/23 18:25:00 EDT, Instructions Replace Required Details, Route to Pharmacy Electronically, [facility], 160, cm, 10/14/22 13:33:00 EDT, Height, 55... Start Date: 02/09/23 Status: Ordered docusate sodium 100 mg oral [...] 11/10/22 12:45:00 EDT, Route to Pharmacy Electronically, [facility] #[facility], dose decrease, 160, cm, [...] Refusal of blood transfusions as patient is Episcopalian Confirmed Active Multinodular goiter - FNA 11/2008; followed by Dr. Rosado Confirmed Active TIA (transient ischemic attack) Confirmed Active Vitamin D deficiency Confirmed Active Social History Social History Type Response Smoking Status Former smoker; Other : minimal use, quit decades ago; entered on: 05/01/16 Sex Patient Care team information Care Team Personnel Name: Birgit Sethi RN Position: [facility] RN Member Role: Primary Care Nurse Name: Porter Noriega MD Position: [facility] Physician - Primary Care Member Role: PCP Address: Address: [address] [place] [address] Adult & Pediatric Medicine [address] Name: Vianey Lockwood RN Position: [facility] ED RN W/OE and Tasks Member Role: Primary Care Nurse Name: Hiwot Donaldson [place] Position: [facility] RN Member Role: Primary Care Nurse Name: Nehal Pate Position: [facility] RN Member Role: Primary Care Nurse Name: Christina Cardenas RN Position: [facility] RN Member Role: Primary Care Nurse Name: Dajuan Martinez RN Position: [facility] RN Member Role: Primary Care Nurse Name: Scott Lou MD Position: [facility] Physician - Behavioral Health Member Role: Lifetime Consulting Physician Address: Address: [address] [place] [address]- Care Team Related Persons Name: ZINA MOHAN Address: [address] [place] [address] Name: ZINA JONES Address: [address] [place] [address]
--- OUTSIDE RECORDS SUMMARY | 2023-10-26 11:06 | XMS_ITS | Continuity of Care Document ---
Author Organization [facility] Address [address] [place] [address]- Care Team Providers Care Health And Safety Trainer Name Role Phone Porter Noriega MD Primary Care Physician [phone] [place] [facility] Date(s): 03/10/23 - 04/09/23 [facility] [address] [place], [place] [address] Allergies, Adverse Reactions, Alerts Substance Reaction Severity Status doxycycline Active Indocin Active Bactrim Active Aleve Active Demerol HCl Active fentaNYL Nausea and vomiting Active oxyCODONE Active Immunizations Given and Recorded Vaccine Date Status Refusal Reason [id number] 12y+ bivalent booster vax 05/13/22 Recorded influenza [...] vaccine, inactivated 03/02/14 Give n SARS-CoV-2 mRNA (zqauerv-gpie-rmmmc) vax 11/01/21 Recorded SARS-CoV-2 (COVID-19) mRNA BNT-162b2 [...] 03/11/22 10:00:00 EDT, Route to Pharmacy Electronically, [facility], 160, cm, 10/07/21 13:18:00 EDT, Height, 55, kg, 07/05/21 12:11:00 EST, Dry Weight Start Date: 03/11/22 Status: Ordered clopidogrel 75 mg oral tablet See Instructions, TAKE ONE TABLET BY MOUTH ONCE DAILY, # 30 tablet, Refills 11, Maintenance, 02/09/23 18:25:00 EDT, Instructions Replace Required Details, Route to Pharmacy Electronically, [facility], 160, cm, 10/14/22 13:33:00 [...] 11/10/22 12:45:00 EDT, Route to Pharmacy Electronically, [facility], dose decrease, 160, cm, [...] Refusal of blood transfusions as patient is Mosque Confirmed Active Multinodular goiter - FNA 11/2008; followed by Dr. Rosado Confirmed Active TIA (transient ischemic attack) Confirmed Active Vitamin D deficiency Confirmed Active Social History Social History Type Response Smoking Status Former smoker; Other : minimal use, quit decades ago; entered on: 05/01/16 Sex Patient Care team information Care Team Personnel Name: Birgit Sethi RN Position: [facility] RN Member Role: Primary Care Nurse Name: Christina Villa RN Position: [facility] RN Member Role: Primary Care Nurse Name: Porter Noriega MD Position: [facility] Physician - Primary Care Member Role: PCP Address: Address: [address] [place] [address] Adult & Pediatric [place] [address] Name: Vianey Lockwood RN Position: [facility] RN Member Role: Primary Care Nurse Name: Hiwot Donaldson [place] Position: [facility] RN Member Role: Primary Care Nurse Name: Nehal Pate Position: [facility] RN Member Role: Primary Care Nurse Name: Dajuan Martinez RN Position: [facility] RN Member Role: Primary Care Nurse Name: Scott Lou MD Position: [facility] Physician - Behavioral Health Member Role: Lifetime Consulting Physician Address: Address: [address] [place] [address]- Care Team Related Persons Name: ZINA MOHAN Address: [address] [place] [address] Name: ZINA JONES Address: [address] [place] [address]
--- OUTSIDE RECORDS SUMMARY | 2023-10-26 11:06 | XMS_ITS | Continuity of Care Document ---
Author Organization [facility] Address [address] [place] [address]- Care Team Providers Care Orderly Name Role Phone Porter Noriega MD Primary Care Physician [phone] Encounter [facility] Date(s): 10/11/19 - 10/18/19 [facility] [address] [place] [address]- [facility] Encounter Diagnosis Fall at home(Discharge Diagnosis) - 10/11/19 TIA (transient ischemic attack)(Discharge Diagnosis) - 10/11/19 Insomnia(Discharge Diagnosis) - 10/11/19 Constipation(Discharge Diagnosis) - 10/11/19 PMR (polymyalgia rheumatica)(Discharge Diagnosis) - 10/11/19 Attending Physician: Porter Noriega MD Allergies, Adverse [...] tablet, 11 Refills, Maintenance, 09/21/19 13:40:00 EDT, [facility], refill when due, 161, [...] 10/16/19 8:15:00 EDT, Route to Pharmacy Electronically, [facility], 160, cm, 10/08/19 8:40:00 EDT, Height, 53.6, kg, 10/05/19 16:00:00 EDT, Dry Weight Start Date: 10/16/19 Status: Ordered predniSONE 5 mg oral tablet [...] of blood transfusion s as patient is Quaker(Confirmed) Active Multinodular goiter - FNA 2008; followed by Dr. Rosado(Confirmed) Active TIA (transient ischemic attack)(Confirmed) Active Vitamin D deficiency(Confirmed) Active Diagnosis Diagnosis Type Effective Dates Health Status Clinical Service Informant Fall at home Discharge Diagnosis 10/11/19 TIA (transient ischemic attack) Discharge Diagnosis 10/11/19 Insomnia Discharge Diagnosis 10/11/19 Constipation Discharge Diagnosis 10/11/19 PMR (polymyalgia rheumatica) Discharge Diagnosis 10/11/19 Social History Social History Type Response Smoking Status Former smoker; Other : minimal use, quit decades ago; entered on: 05/01/16 Sex
--- OUTSIDE RECORDS SUMMARY | 2023-10-26 11:06 | XMS_ITS | Continuity of Care Document ---
[facility] [address] [place] [address]- Care Team Providers Care Edge Trimmer Name Role Phone Hari NEELY, Porter eMndez Primary Care Physician [phone] Encounter [facility] Date(s): 05/16/23 - 05/17/[address] [id number]- Discharge Disposition: A-D/C Home Attending Physician: Neida Mckeon MD Admitting Physician: Rob Cole MD Referring Physician: Quinn Gaines DO Allergies, Adverse Reactions, Alerts Substance Reaction Severity Status doxycycline Active Indocin Active Bactrim Active Aleve Active Demerol HCl Active fentaNYL Nausea and vomiting Active oxyCODONE Active Immunizations Given and Recorded Vaccine Date Status Refusal Reason [id number] 12y+ bivalent booster vax 05/13/22 Recorded influenza [...] vaccine, inactivated 03/02/14 Give n SARS-CoV-2 mRNA ([id number]) vax 11/01/21 Recorded SARS-CoV-2 (COVID-19) mRNA BNT-162b2 vac 04/30/21 Recorded SARS-CoV-2 (COVID-19) mRNA BNT-162b2 vac 10/16/20 Recorded SARS-CoV-2 (COVID-19) mRNA BNT-162b2 vac 09/24/20 Recorded pneumococcal 13-valent vaccine 08/05/16 Given tetanus/diphtheria/pertussis, acel(Tdap) 02/10/13 Given pneumococcal 23-valent vaccine 08/19/09 Given pneumococcal 23-valent vaccine 03/21/01 Given Medications cefdinir 300 mg oral capsule 1 capsule = 300 mg, By Mouth, Every 12 hours, for 5 days, # 10 capsule, 0 Refills, Acute 05/22/23 14:52:00 EST, 05/17/23 14:52:00 EST, Capsule, [id number], Partial fill upon patient request if the prescription is for a schedule II opioid drug.... Start Date: 05/17/23 Stop Date: 05/22/23 Status: Ordered clopidogrel 75 mg oral tablet [...] Refusal of blood transfusions as patient is Voodoo Confirmed Active Multinodular goiter - FNA 11/2008; followed by Dr. Rosado Confirmed Active TIA (transient ischemic attack) Confirmed Active Vitamin D deficiency Confirmed Active Results Orders for Microbiology Reports Name Date Blood Culture 05/16/23 Blood Culture #2 05/16/23 Urine Culture (URINE CULTURE) 05/16/23 Microbiology Reports TEST:Blood Culture, Second Order STATUS:Unauthenticated BODY SITE: SOURCE:Blood COLLECTED DATE/TIME:05/16/23 11:00 AM Blood Culture, Second Order SPECIMEN DESCRIPTION : BLOOD L/HAND SPECIAL REQUESTS : NONE CULTURE : NO GROWTH AFTER 24 HOURS REPORT STATUS : PRELIMINARY REPORT TEST:Blood Culture STATUS:Unauthenticated BODY SITE: SOURCE:Blood COLLECTED DATE/TIME:05/16/23 10:45 AM Blood Culture SPECIMEN DESCRIPTION : BLOOD L/AC SPECIAL REQUESTS : NONE CULTURE : NO GROWTH AFTER 24 HOURS REPORT STATUS : PRELIMINARY REPORT TEST:Urine Culture STATUS:Unauthenticated BODY SITE: SOURCE:URINE COLLECTED DATE/TIME:05/16/23 10:20 AM Urine Culture SPECIMEN DESCRIPTION : URINE CLEAN CATCH/MIDSTREAM SPECIAL REQUESTS : NONE CULTURE : 10-50,000 COL/ML ESCHERICHIA COLI This isolate was identified using Maldi-TOF system REPORT STATUS : PRELIMINARY REPORT Radiology Reports * Exam Date Time Procedure Performing Provider Status 05/16/23 11:[address] Abdomen and Pelvi s W/O Contrast Klaus Best; Auth (Verified) Notes: (CT Abdomen and Pelvis W/O Contrast) Reason For Exam: Pain RESULT: CT Abdomen and Pelvis W/O Contrast CT Abdomen and Pelvis W/O Contrast Hx of Present Illness: From home with complaints of bloody urine with clots. Also endorses nocturnal incontinence, frequency and burning; Reason: Pain; Clinical Question(s): Calculus TECHNIQUE: Spiral CT through the abdomen and pelvis without IV contrast formatted in 3 planes. Thisstudy was performed without oral contrast. Weight- based protocol using automatic tube modulation was used to optimize exposure parameters. CTDIvol Body: 10.83 mGy, DLP Body: 478 mGy*cm. COMPARISON: January 31, 2016. FINDINGS: Ammonia Still Operator View Findings, Lines and Tubes: None. Visualized Chest: Atelectasis at the lung bases. Top normal heart size. No pleural or pericardial effusion. Diaphragm: Normal. Liver: Normal. Gallbladder: No CT evidence of gallbladder pathology. Bile ducts: No biliary ductal dilation. Spleen: Normal. Pancreas: Unremarkable noncontrast appearance. Adrenal glands: Low-attenuation thickening of both adrenal glands, and evaluation mildly limited bymotion. Findings may represent mild hyperplasia with the presence of small lipid rich adenomas, requiring no dedicated follow-up and similar in appearance to 2016. Kidneys and ureters: Mild fullness of both renal collecting systems without castro hydronephrosis. No nephrolithiasis or noncontrast evidence of a suspicious lesion. Bladder: Anterior wall thickening is likely due to partial distention. Mild perivesicular fat stranding. Reproductive organs: Unremarkable. Stomach, small bowel, and large bowel: Normal caliber bowel loops without evidence of obstruction. Swirled appearance of the central mesentery with no evidence of complication. Moderate to large stool burden in the colon. Moderate sigmoid diverticulosis. Appendix: Not seen, but no evidence of appendicitis. Peritoneum and retroperitoneum: No ascites or pneumoperitoneum. No omental or mesenteric lesions. Lymph nodes: No enlarged lymph nodes. Blood vessels: Moderate atherosclerotic vascular calcification. No aortic aneurysm. Abdominal and pelvic wall: Unremarkable. Bones: Moderate to severe degenerative changes of the lower lumbar spine including grade 1 anterolisthesis of L4 on L5. Vacuum phenomenon and disc bulging noted at T12-L1. Moderate to severe spinal canal stenosis at L3-L5 with bilateral neural foraminal stenosis at the same levels, worst on the right at L4-L5. IMPRESSION: 1. Mild anterior bladder wall thickening, likely due to partial distention. Surrounding stranding may indicate cystitis. Correlation with urinalysis is recommended. 2. No nephrolithiasis. Mild fullness of the renal collecting systems without castro hydronephrosis. 3. Moderate to severe degenerative changes of the lumbar spine as detailed above. WSN: [id number] Ordering Physician: Quinn Gaines Dictated By: Gavin Patel MD Dictated Date/Time: 05/16/23 12:41 p Reviewed By: Gavin Patel MD Signed By: Gavin Patel MD Signed Date/Time: 05/16/23 12:41 pm Transcribed By: CUONG Transcribed Date/Time: 05/16/23 12:29 pm Vital Signs Most recent to oldest [Reference Range]: 1 2 3 Height 160 cm (05/17/23 3:15 PM) 160 cm (05/17/23 1:03 PM) 160 cm (05/17/23 8:45 AM) Weight 55 kg (05/17/23 5:19 AM) 55 kg (05/16/23 8:28 PM) 55 kg (05/16/23 9:34 AM) Oxygen Saturation [94-100 %] 100 % (05/17/23 3:15 PM) 97 % (05/17/23 1:03 PM) 97 % (05/17/23 8:45 AM) Pulse Rate [55-90 bpm] 68 bpm (05/17/23 3:15 PM) 64 bpm (05/17/23 1:03 PM) 61 bpm (05/17/23 8:45 AM) Body Mass Index [18.5-24.99 kg/m2] 21.48 kg/m2 (05/17/23 5:19 AM) 21.48 kg/m2 (05/16/23 8:28 PM) Blood Pressure [90-138/55-84 mm Hg] 135/59mm Hg (05/17/23 3:15 PM) 156/67mm Hg *H* (05/17/23 1:03 PM) 110/45mm Hg (05/17/23 8:45 AM) Respiratory Rate [16-30 br/min] 18 br/min (05/17/23 3:15 PM) 18 br/min (05/17/23 1:03 PM) 18 br/min (05/17/23 10:45 AM) Temperature [96.8-100.4 DegF] 97.8 DegF (05/17/23 3:15 PM) 97.6 DegF (05/17/23 1:03 PM) 97.8 DegF (05/17/23 8:45 AM) Liters per Minute 0 L/min (05/17/23 5:19 AM) Mode of Delivery (Oxygen) Room air (05/17/23 3:15 PM) Room air (05/17/23 1:03 PM) Room air (05/17/23 8:45 AM) Blood pressure sites Arm, right (05/17/23 3:15 PM) Arm, right (05/17/23 1:03 PM) Arm, right (05/17/23 8:45 AM) Temperature Route Temporal (05/17/23 3:15 PM) Temporal (05/17/23 1:03 PM) Temporal (05/17/23 8:45 AM) Dry Weight 55 kg (05/17/23 5:19 AM) 55 kg (05/16/23 8:28 PM) 55 kg (05/16/23 9:34 AM) Weight Obtained Via Patient/family state d (05/16/23 9:34 AM) Social History Social History Type Response Smoking Status Former smoker; Other : minimal use, quit decades ago; entered on: 05/01/16 Sex Admission evaluation note * Mike NEELY, Neida: PERFORM Event Display: Admission Note Authored Date: [id number] Patient: ??YO ADAME ? Age:??87 Years?Sex:??Female?:??1935?? Chief Complaint/Reason for Consultation Presented to hospital of??lower abdominal pain, increased urinary frequency and generalized weakness for 2 to 3 days History of Present Illness 87-year-old female with a past medical history of polymyalgia rheumatica,TIA on Plavix, osteoporosis, chronic anemia, anxiety who presents??to [facility] of increased weakness over the past 2 days. ?Patient has had some suprapubic discomfort. ??She does have a previous history of some urinary incontinence. ??She also admits to this. ??She thought she did have some blood in her urine this morning. ??There has been some dysuria. ??She has some chronic low back pain. ??No history of any falls. ??Denies any numbness or focal weakness. ??Patient with difficulty ambulating this morning given gene ral weakness. ?? In the ER UA is grossly positive for??UTI. ??Patient was started on ceftriaxone. A CT abdomen pelvis was completed which reported Mild anterior bladder wall thickening, likely due to partial distention. Surrounding stranding may indicate cystitis. Correlation with urinalysis is recommended.?? Patient denies any fever, nausea, vomiting, diarrhea. ??Denies any sick contact. ??Patient lives alone at home. ? Admitted to medicine for further evaluation and management ? Review of Systems Negative: Constitutional, Eye, Skin, Head/Neck, ENMT, Respiratory, Cardio, Gastrointestinal, Breast, Gynecologic, Genitourinary, Endocrine, Muscoloskeletal, Immunologic, Hematologic, Lymphatic, Neurologic, Psych reviewed and negative except as noted in HPI.?? Objective Measurements?? Height: 160 cm (05/16/23) Weight: 55 kg (05/16/23) Dry Weight: 55 kg (05/16/23) ? Vital Signs?? Temperature: 98.3 DegF (05/16/23 09:27:00) Temperature Route: Temporal (05/16/23 09:27:00) Pulse Rate: 67 bpm (05/16/23 09:27:00) Respiratory Rate: 16 br/min (05/16/23 09:27:00) Systolic Blood Pressure:??154 mm Hg??High (05/16/23 09:27:00) Diastolic Blood Pressure: 61 mm Hg (05/16/23 09:27:00) Pulse Pressure: 93 mm Hg (05/16/23 09:27:00) Oxygen Saturation: 97 % (05/16/23 09:27:00) Mode of Delivery (Oxygen): Room air (05/16/23 09:27:00) ? Physical Exam ? General:??Elderly woman lying comfortably on the stretcher. Eyes: Anicteric sclerae; PERRLA HENT:Oropharynx clear with moist mucous membranes?? Neck: Supple; No JVD Lungs: CTA, with normal respiratory effort and no intercostal interactions; air entry equal B/L, Nocrackles CVS: S1 S2+, RRR, No M/R/G.?? Abdomen: Soft,??Non tender, BS+ Neuro: Awake, alert and oriented X3. Intact cranial nerves II-XII; Muscle strength 5/5 in all extremeties. EXT: No peripheral edema.?? Psych:??Appropriate affect? Assessment/Plan Diagnoses 1. ??UTI (urinary tract infection) ??(N39.0) 2. ??Weakness ??(R53.1) ? 87-year-old female with a past medical history of polymyalgia rheumatica,TIA on Plavix, osteoporosis, anxiety who presents??to [facility] of increased weakness over the past 2 days and found to have urine tract infection. ?? UTI (urinary tract infection) ??(N39.0): In the ER UA is grossly positive for??UTI. ??Patient was started on ceftriaxone. A CT abdomen pelvis was completed which reported Mild anterior bladder wall thickening, likely due to partial distention. Surrounding stranding may indicate cystitis. Correlation with urinalysis is recommended. Blood culture was sent. Urine culture was sent. Patient was started on ceftriaxone which I will continue. Monitor clinically. ?? Weakness ??(R53.1): Likely secondary from acute infection as above. PT consult. ? Anxiety (F41.9):Chronic anxiety and depression. Continue mirtazapine and??fluoxetine. ?? Chronic anemia: Hemoglobin at her baseline. Hemoglobin 10.9. Miscellaneous:??Patient is a Voodoo and??confirmed that she does not want any PRBC if needed. ?? History of TIA: Continue with??Plavix. ? VTE Prophylaxis:??SQ lovenox ?VTE Prophylaxis Assessment:??VTE Prophylaxis Ordered ?? Code Status:??DNR, Confirmed with daughter at bed side. ?Order Code Status:??Code Status Ordered. ? Plan was updated with daughter Georgette at bedside ?This note was created using [employer] software. ??There might be some unwanted typographical errors. ? Histories Allergies Allergies ?(Active and Proposed Allergies Only) doxycycline? (Severity: Unknown severity, Onset: Unknown) fentaNYL? (Severity: Unknown severity, Onset: Unknown) ?Reactions: Nausea and vomiting oxyCODONE? (Severity: Unknown severity, Onset: Unknown) Aleve? (Severity: Unknown severity, Onset: Unknown) Demerol HCl? (Severity: Unknown severity, Onset: Unknown) Indocin? (Severity: Unknown severity, Onset: Unknown) Bactrim? (Severity: Unknown severity, Onset: Unknown) ? Past Medical History/Problem List Active Problems??(12) Anxiety H/O Clostridium difficile infection requiring admission 01/2016 H/O herpes zoster Injury of right wrist Multinodular goiter - FNA 11/2008; followed by Dr. Rosado Osteoporosis not on bisphosphonate Panic disorder Polymyalgia rheumatica Recurrent urinary tract infection; h/o hydronephrosis; urologist Dr. Alcaraz Refusal of blood transfusions as patient is Voodoo TIA (transient ischemic attack) Vitamin D deficiency ? Social History Alcohol Details:??Use: Never. Employment/School Details:??Status: Retired. Exercise Details:??Self assessment: Fair condition. ??Regular exercise: No. Home/Environment Details:??Living situation: Home/Independent. ??Lives with: Children. Nutrition/Health Details:??Diet: Regular. Substance Abuse Details:??Use: Never. Tobacco Details:??Former smoker, Other: minimal use, quit decades ago. ? Family History Mother: Cancer of lung Sister: Diabetes mellitus type II; Mental illness Son: Mental illness Sister (half sister): Churg-Miquel syndrome ? Medications Home Medications Clopidogrel (clopidogrel 75 mg oral tablet)?1?tablet?By Mouth?Daily Docusate (docusate sodium 100 mg oral capsule)?100?Milligram?1?capsule?By Mouth?Daily Fluoxetine (FLUoxetine 10 mg oral capsule)?10?Milligram?1?capsule?By Mouth?Daily Mirtazapine (mirtazapine 7.5 mg oral tablet)?See Instructions?TAKE ONE TABLET BY MOUTH AT BEDTIME Polyethylene Glycol 3350 (MiraLax oral powder for reconstitution)?17?gram?By Mouth?Daily?as needed?constipation?dissolve in water before taking Psyllium (Metamucil 3.4 gm/5.2 gm oral powder for reconstitution)?3.4?gram?By Mouth?Daily?dissolve in 8 oz of fluid ? Results Recent Labs BLOOD COUNT & DIFF WBC 14.5 k/mm3 (High)?? 05/16/2023 10:00 RBC 3.60 m/mm3 (Low)?? 05/16/2023 10:00 Hgb 10.9 Gm/dL (Low)?? 05/16/2023 10:00 Hct 32.6 % (Low)?? 05/16/2023 10:00 MCV 90.6 femtoliters ()?? 05/16/2023 10:00 MCH 30.3 pg ()?? 05/16/2023 10:00 MCHC 33.4 g/dL ()?? 05/16/2023 10:00 Platelet Count 297 k/mm3 ()?? 05/16/2023 10:00 RDW-SD 44.7 femtoliters ()?? 05/16/2023 10:00 MPV 10.2 femtoliters ()?? 05/16/2023 10:00 Nucleated RBC (Automated) 0.0 #/100 WBC'S ()?? 05/16/2023 10:00 Abs. NRBC 0.0 k/mm3 ()?? 05/16/2023 10:00 Abs. Neut 12.5 k/mm3 (High)?? 05/16/2023 10:00 Abs. Lymph 0.7 k/mm3 (Low)?? 05/16/2023 10:00 Abs. Wilson 1.1 k/mm3 (High)?? 05/16/2023 10:00 Abs. Eo 0.1 k/mm3 ()?? 05/16/2023 10:00 Abs. Baso 0.1 k/mm3 ()?? 05/16/2023 10:00 Neut % 86.2 % (High)?? 05/16/2023 10:00 Lymph % 4.8 % (Low)?? 05/16/2023 10:00 Wilson % 7.8 % ()?? 05/16/2023 10:00 Eos % 0.4 % ()?? 05/16/2023 10:00 Baso % 0.4 % ()?? 05/16/2023 10:00 Imm Gran 0.4 % ()?? 05/16/2023 10:00 Abs. Imm Gran 0.1 k/mm3 ()?? 05/16/2023 10:00 ?? CHEM GENERAL Sodium 137 mmol/L ()?? 05/16/2023 10:00 Potassium 3.9 mmol/L ()?? 05/16/2023 10:00 Chloride 98 mmol/L ()?? 05/16/2023 10:00 Bicarbonate Level 28 mmol/L ()?? 05/16/2023 10:00 Anion Gap 11 ()?? 05/16/2023 10:00 Glucose Level 103 mg/dL (High)?? 05/16/2023 10:00 BUN 18 mg/dL ()?? 05/16/2023 10:00 Creatinine-Blood 1.0 mg/dL ()?? 05/16/2023 10:00 Estimated GFR Creatinine 55 ML/MIN/1.73 M2 ()?? 05/16/2023 10:00 Calcium 9.2 mg/dL ()?? 05/16/2023 10:00 Alkaline Phosphatase 96 units/L ()?? 05/16/2023 10:00 Lipase 135 units/L (High)?? 05/16/2023 10:00 AST (SGOT) 25 units/L ()?? 05/16/2023 10:00 ALT (SGPT) 14 units/L ()?? 05/16/2023 10:00 Bilirubin, Total 0.4 mg/dL ()?? 05/16/2023 10:00 Bilirubin, Direct 0.1 mg/dL ()?? 05/16/2023 10:00 Bilirubin, Indirect 0.3 mg/dL ()?? 05/16/2023 10:00 Lactate 0.8 mmol/L ()?? 05/16/2023 10:00 ?? HEME OTHER Hold Blue Top SPECIMEN DISCARDED AFTER 4 HOURS. ()?? 05/16/2023 10:00 ?? MISC. CHEMISTRY Hold Green Top SPECIMEN DISCARDED AFTER 1 WEEK ()?? 05/16/2023 10:00 Hold Gel Top SPECIMEN DISCARDED AFTER 1 WEEK ()?? 05/16/2023 10:00 Hold Burr Top SPECIMEN DISCARDED AFTER 1 WEEK ()?? 05/16/2023 10:00 ?? UA/URINALYSIS Appear/Color, Urine YELLOW ()?? 05/16/2023 09:50 Clarity SL.CLOUDY (Abnormal)?? 05/16/2023 09:50 Specific [place], Urine 1.015 ()?? 05/16/2023 09:50 pH, Urine 8.0 ()?? 05/16/2023 09:50 Albumin, Urine TRACE (Abnormal)?? 05/16/2023 09:50 Glucose, Urine NEGATIVE ()?? 05/16/2023 09:50 Ketones, Urine NEGATIVE ()?? 05/16/2023 09:50 Bilirubin, Urine NEGATIVE ()?? 05/16/2023 09:50 Hemoglobin, Urine 2+ (Abnormal)?? 05/16/2023 09:50 Nitrite, Urine NEGATIVE ()?? 05/16/2023 09:50 Leukocyte, Urine 3+ (Abnormal)?? 05/16/2023 09:50 Urobilinogen NORMAL mg/dL ()?? 05/16/2023 09:50 WBC's, Urine >182 /HPF (High)?? 05/16/2023 09:50 RBC's, Urine 53 /HPF (High)?? 05/16/2023 09:50 Bacteria SLIGHT HPF (Abnormal)?? 05/16/2023 09:50 Mucus SLIGHT /LPF ()?? 05/16/2023 09:50 Hold Urine Culture Testing available 48 hours from time of collection. ()?? 05/16/2023 09:50 ?? URINE OTHER Est Creatinine Clearance 32.78 mL/min ()?? 05/16/2023 10:38 ? Urinalysis Albumin, Urine: TRACE Abnormal (09:50) Appear/Color, Urine: YELLOW (09:50) Bacteria: SLIGHT Abnormal (09:50) Bilirubin, Urine: NEGATIVE (09:50) Clarity: SL.CLOUDY Abnormal (09:50) Est Creatinine Clearance: 32.78 mL/min (10:38) Glucose, Urine: NEGATIVE (09:50) Hemoglobin, Urine: 2+ Abnormal (09:50) Hold Urine Culture: Testing available 48 hours from time of collection. (09:50) Ketones, Urine: NEGATIVE (09:50) Leukocyte, Urine: 3+ Abnormal (09:50) Mucus: SLIGHT (09:50) Nitrite, Urine: NEGATIVE (09:50) pH, Urine: 8 (09:50) RBC's, Urine:??53 /HPF??High (09:50) Specific [place], Urine: 1.015 (09:50) Urobilinogen: NORMAL (09:50) WBC's, Urine:??>182??High (09:50) ?? EKG study * Event Display: ECG 12-Lead Authored Date: Please click on pdf link to open report * Event Display: ECG 12-Lead Authored Date: Ventricular Rate: 66 BPM Atrial Rate: 66 BPM P-R Interval: 154 ms QRS Duration: 116 ms Q-T Interval: 450 ms QTC Calculation(Bazett): 471 ms P [place]: 64 degrees R [place]: 3 degrees T [place]: 40 degrees Normal sinus rhythm Incomplete right bundle branch block Borderline ECG When compared with ECG of 05-JUL-2021 12:14, No significant change was found Confirmed by STEPHANIE NEELY [facility] ([id number]) on 05/17/2023 10:17:12 PM [place]: STEPHANIE NEELY,[facility] Progress note * Justyna Bush RN: PERFORM, SIGN, VERIFY Event Display: Progress Note Hospital Authored Date: [id number] Patient: OY ADAME Age: 87 years Sex: Female : 1935 Associated Diagnoses: None Author: Justyna Bush RN Findings Narrative/Incidental Pt. aox4. CITIZEN [place]. oob x 1 with a walker. VSS. No complaints of pain or discomfort. Discharge instructions went over with patient and daughter at the bedside. IV taken out. Purewick discontinued. No safety issues. Pt. wheeled out to main entrance.. Note * Justyna Bush RN: PERFORM Event Display: Discharge/Transfer Note Hospital Authored Date: [id number] Nursing Discharge Note Entered On: 05/17/2023 16:59 EST Performed On: 05/17/2023 16:58 EST by Justyna Bush RN Nursing Discharge Note 2 Discharge Time : 05/17/2023 16:00 EST Discharge Level of Care at Discharge : Homehealth/VNA Discharge VNA/Hospice/Home Care(v001) : [facility] Patient Left Unit Via : Wheelchair Patient Accompanied Off Unit with : Significant other DC Instructions Provided & Signed by Pt : Yes Patient Understands D/C Instructions : Yes Patient Instructions Discharge Signed : Yes Did Pt have Specialty Bed or Wound Vac : No Justyna Bush RN - 05/17/2023 16:58 EST * Neida Mckeon MD: PERFORM Event Display: Discharge/Transfer Note Hospital Authored Date: [id number] Patient: ??YO ADAME ? Age:??87 Years?Sex:??Female?:??1935?? Patient Information Discharge Location: ED Hold Primary Care Physician: Porter Noriega MD Admit Date/Time: 05/16/23 12:32 Discharge Disposition Discharge Disposition: Home with Home Health Discharge Diagnosis UTI (urinary tract infection) (N39.0) Weakness (R53.1) ?? _ Discharge Medications Cefdinir (cefdinir 300 mg oral capsule)?1?capsule?300?Milligram?By Mouth?Every 12hours?for 5?Days Clopidogrel (clopidogrel 75 mg oral tablet)?1?tablet?By Mouth?Daily Docusate (docusate sodium 100 mg oral capsule)?100?Milligram?1?capsule?By Mouth?Daily Fluoxetine (FLUoxetine 10 mg oral capsule)?10?Milligram?1?capsule?By Mouth?Daily Mirtazapine (mirtazapine 7.5 mg oral tablet)?See Instructions?TAKE ONE TABLET BY MOUTH AT BEDTIME Polyethylene Glycol 3350 (MiraLax oral powder for reconstitution)?17?gram?By Mouth?Daily?as needed?constipation?dissolve in water before taking Psyllium (Metamucil 3.4 gm/5.2 gm oral powder for reconstitution)?3.4?gram?By Mouth?Daily?dissolve in 8 oz of fluid ? Medications Started Cefdinir (cefdinir 300 mg oral capsule)?1?capsule?300?Milligram?By Mouth?Every 12hours?for 5?Days Medications Discontinued None. Doses Changed None. Allergies Allergies ?(Active and Proposed Allergies Only) doxycycline? (Severity: Unknown severity, Onset: Unknown) fentaNYL? (Severity: Unknown severity, Onset: Unknown) ?Reactions: Nausea and vomiting oxyCODONE? (Severity: Unknown severity, Onset: Unknown) Aleve? (Severity: Unknown severity, Onset: Unknown) Demerol HCl? (Severity: Unknown severity, Onset: Unknown) Indocin? (Severity: Unknown severity, Onset: Unknown) Bactrim? (Severity: Unknown severity, Onset: Unknown) ? Hospital Course ??87-year-old female with a past medical history of polymyalgia rheumatica,TIA on Plavix, osteoporosis, anxiety who presents??to [facility] of increased weakness over the past 2 days and found to have urine tract infection. ?? UTI (urinary tract infection) ??(N39.0): In the ER UA is grossly positive for??UTI. ??Patient was started on ceftriaxone. A CT abdomen pelvis was completed which reported Mild anterior bladder wall thickening, likely due to partial distention. Surrounding stranding may indicate cystitis. Correlation with urinalysis is recommended. Patient was treated with IV ceftriaxone with clinical improvement. Overall feeling better. Urine culture growing E. coli. Will discharge the patient on cefdinir 300 mg twice daily for 5 more days as outpatient. ?? Weakness ??(R53.1): Likely secondary from acute infection as above. PT recommended rehab. ??However??patient??wants to go home and family is agreeable to that. Will arrange home??retirement and physical therapy. ? Anxiety (F41.9):Chronic anxiety and depression. Continue mirtazapine and??fluoxetine. ?? Chronic anemia: Hemoglobin at her baseline. Hemoglobin 10.9. Miscellaneous:??Patient is a Voodoo and??confirmed that she does not want any PRBC if needed. ?? History of TIA: Continue with??Plavix. ? Objective Measurements?? Height: 160 cm (05/17/23) Weight: 55 kg (05/17/23) Dry Weight: 55 kg (05/17/23) Body Mass Index: 21.48 kg/m2 (05/17/23) ? Vital Signs?? Temperature: 97.6 DegF (05/17/23 13:03:00) Temperature Route: Temporal (05/17/23 13:03:00) Pulse Rate: 64 bpm (05/17/23 13:03:00) Respiratory Rate: 18 br/min (05/17/23 13:03:00) Systolic Blood Pressure:??156 mm Hg??High (05/17/23 13:03:00) Diastolic Blood Pressure: 67 mm Hg (05/17/23 13:03:00) Blood pressure sites: Arm, right (05/17/23 13:03:00) Mean Arterial Pressure: 97 mm Hg (05/17/23 13:03:00) Pulse Pressure: 89 mm Hg (05/17/23 13:03:00) Oxygen Saturation: 97 % (05/17/23 13:03:00) Liters per Minute: 0 L/min (05/17/23 05:19:00) Mode of Delivery (Oxygen): Room air (05/17/23 13:03:00) ? . Physical Exam ?? General: Lying comfortably in bed,no evident distress Cardiac: S1 + S2 + 0, no murmurs heard Respiratory: CTA, No wheezes, Rales or crackles heard Abdomen: soft, nondistended, nontender Extremities: No edema or cyanosis present Neurological: AO X3,cranial nerves grossly normal? Pending Results Add On Lab Order ordered on 05/16/2023 Add On Lab Order ordered on 05/16/2023 Blood Culture ordered on 05/16/2023 Blood Culture #2 ordered on 05/16/2023 Urine Culture ordered on 05/16/2023 Follow-Up Appointments Added Follow Up ?Time Frame ?Comments Hari NEELY, Porter Mendez?2 to 3 weeks Post Discharge Care Discharge ?Prescription sent to [facility]., 05/17/23 14:53:00 EST Home Health Face to Face *Denotes mandatory kiran ?? *I certify that this patient is under my care and that I or an allowed non- physician working with me had a face to face encounter with the patient on this date:??05/17/2023 14:58 ?? *The encounter with the patient was in whole, or in part, for the following medical condition, which is the primary diagnosis(es) for home health care:??UTI (urinary tract infection) (N39.0) Weakness (R53.1) ? *Select the indications for the discipline/s that are being arranged for this patient. Nursing (select all that apply): [_] None [] Medication management (reconciliation, teaching)?? [] Chronic disease management?? [_] Wound care and treatment?? [_] Home safety evaluation [_] Administer SQ/IM/IV medications?? [_] Cath care?? [_] Drain care?? [_] Trach or GT care?? Other _ Occupation Therapy (select all that apply): [_] None [_] ADL Management [_] Fall prevention training [_] Energy conservation [_] Cognitive training Other _ Physical Therapy (select all that apply): [_] None [X_] Functional mobility training [X_] Home exercise program to strengthen [_] Increase ROM?? [_] Falls prevention training [_] Home maintenance program for chronic disease Other _ Speech Therapy (select all that apply): [_] None [_] Swallow evaluation and training [_] Speech and language training [_] Cognitive training to process, organize, and/or recall information Other _ ? *Homebound due to (select all that apply): [X_] Inability to leave home without assistance/supervision [_X] Inability to ambulate without assistance [_] Pain [_] Decreased strength and endurance [_] Unsteady gait [_] Severe SOB and fatigue [_] Impaired transfers [_] Inability to negotiate stairs [_] Limited weight bearing [_] Mental status change? *Physician Signature:?? Neida??MD Mike ?? *By signing this, I certify that I have personally evaluated the patient and agree with the findings and recommendations as documented above. ? Results Discharge Labs BLOOD COUNT & DIFF WBC 10.0 k/mm3 ()?? 05/17/2023 05:47 RBC 3.66 m/mm3 (Low)?? 05/17/2023 05:47 Hgb 11.0 Gm/dL (Low)?? 05/17/2023 05:47 Hct 33.6 % (Low)?? 05/17/2023 05:47 MCV 91.8 femtoliters ()?? 05/17/2023 05:47 MCH 30.1 pg ()?? 05/17/2023 05:47 MCHC 32.7 g/dL (Low)?? 05/17/2023 05:47 Platelet Count 282 k/mm3 ()?? 05/17/2023 05:47 RDW-SD 45.4 femtoliters ()?? 05/17/2023 05:47 MPV 10.2 femtoliters ()?? 05/17/2023 05:47 Nucleated RBC (Automated) 0.0 #/100 WBC'S ()?? 05/17/2023 05:47 Abs. NRBC 0.0 k/mm3 ()?? 05/17/2023 05:47 Abs. Neut 12.5 k/mm3 (High)?? 05/16/2023 10:00 Abs. Lymph 0.7 k/mm3 (Low)?? 05/16/2023 10:00 Abs. Wilson 1.1 k/mm3 (High)?? 05/16/2023 10:00 Abs. Eo 0.1 k/mm3 ()?? 05/16/2023 10:00 Abs. Baso 0.1 k/mm3 ()?? 05/16/2023 10:00 Neut % 86.2 % (High)?? 05/16/2023 10:00 Lymph % 4.8 % (Low)?? 05/16/2023 10:00 Wilson % 7.8 % ()?? 05/16/2023 10:00 Eos % 0.4 % ()?? 05/16/2023 10:00 Baso % 0.4 % ()?? 05/16/2023 10:00 Imm Gran 0.4 % ()?? 05/16/2023 10:00 Abs. Imm Gran 0.1 k/mm3 ()?? 05/16/2023 10:00 ?? CHEM GENERAL Sodium 138 mmol/L ()?? 05/17/2023 05:47 Potassium 3.3 mmol/L (Low)?? 05/17/2023 05:47 Chloride 101 mmol/L ()?? 05/17/2023 05:47 Bicarbonate Level 25 mmol/L ()?? 05/17/2023 05:47 Anion Gap 12 ()?? 05/17/2023 05:47 Glucose Level 90 mg/dL ()?? 05/17/2023 05:47 BUN 19 mg/dL ()?? 05/17/2023 05:47 Creatinine-Blood 1.0 mg/dL ()?? 05/17/2023 05:47 Estimated GFR Creatinine 55 ML/MIN/1.73 M2 ()?? 05/17/2023 05:47 Calcium 9.2 mg/dL ()?? 05/16/2023 10:00 Magnesium 2.2 mg/dL ()?? 05/17/2023 05:47 Alkaline Phosphatase 96 units/L ()?? 05/16/2023 10:00 Lipase 135 units/L (High)?? 05/16/2023 10:00 AST (SGOT) 25 units/L ()?? 05/16/2023 10:00 ALT (SGPT) 14 units/L ()?? 05/16/2023 10:00 Bilirubin, Total 0.4 mg/dL ()?? 05/16/2023 10:00 Bilirubin, Direct 0.1 mg/dL ()?? 05/16/2023 10:00 Bilirubin, Indirect 0.3 mg/dL ()?? 05/16/2023 10:00 Lactate 0.8 mmol/L ()?? 05/16/2023 10:00 ? HEME OTHER Hold Blue Top SPECIMEN DISCARDED AFTER 4 HOURS. ()?? 05/16/2023 10:00 ? MISC. CHEMISTRY Hold Green Top SPECIMEN DISCARDED AFTER 1 WEEK ()?? 05/16/2023 10:00 Hold Gel Top SPECIMEN DISCARDED AFTER 1 WEEK ()?? 05/16/2023 10:00 Hold Burr Top SPECIMEN DISCARDED AFTER 1 WEEK ()?? 05/16/2023 10:00 ? UA/URINALYSIS Appear/Color, Urine YELLOW ()?? 05/16/2023 09:50 Clarity SL.CLOUDY (Abnormal)?? 05/16/2023 09:50 Specific [place], Urine 1.015 ()?? 05/16/2023 09:50 pH, Urine 8.0 ()?? 05/16/2023 09:50 Albumin, Urine TRACE (Abnormal)?? 05/16/2023 09:50 Glucose, Urine NEGATIVE ()?? 05/16/2023 09:50 Ketones, Urine NEGATIVE ()?? 05/16/2023 09:50 Bilirubin, Urine NEGATIVE ()?? 05/16/2023 09:50 Hemoglobin, Urine 2+ (Abnormal)?? 05/16/2023 09:50 Nitrite, Urine NEGATIVE ()?? 05/16/2023 09:50 Leukocyte, Urine 3+ (Abnormal)?? 05/16/2023 09:50 Urobilinogen NORMAL mg/dL ()?? 05/16/2023 09:50 WBC's, Urine >182 /HPF (High)?? 05/16/2023 09:50 RBC's, Urine 53 /HPF (High)?? 05/16/2023 09:50 Bacteria SLIGHT HPF (Abnormal)?? 05/16/2023 09:50 Mucus SLIGHT /LPF ()?? 05/16/2023 09:50 Hold Urine Culture Testing available 48 hours from time of collection. ()?? 05/16/2023 09:50 ? URINE OTHER Est Creatinine Clearance 32.78 mL/min ()?? 05/16/2023 10:38 ? 35_ minutes spent on discharge * Ngozi Faulkner: PERFORM, SIGN, VERIFY Event Display: Case Management Discharge Plan Authored Date: Patient: YO ADAME Age: 87 years Sex: Female : 1935 Associated Diagnoses: None Author: Ngozi Faulkner Discharge Plan Case Management Discharge Plan : Case Management Discharge Plan Data 05/17/2023 14:59 EST Discharge Level of Care at Discharge Homehealth/VNA Discharge VNA/Hospice/Home Care [facility] Name of Agency #1 [facility] Radio Performer #1 Intake Service Categories #1 Physical Therapy Service Comments #1 The VNA will call you with a visit time * Justyna Bush RN: PERFORM Event Display: Patient Education/Instruction Authored Date: [id number] Inpatient Adult Discharge Instructions [address] [address] Name: YO ADAME : 1935 Visit: 05/16/2023 12:32:00 Current Date: 05/17/2023 16:11 Account: [id number] Inpatient Adult Discharge Instructions We would like to thank you for allowing us to assist you with your healthcare needs. The following includes patient education materials and information regarding your injury/illness. Our entire staffstrives to provide an excellent experience for our patients and their families. PLEASE ENSURE YOU FOLLOW-UP PER THE INSTRUCTIONS BELOW! ?? YOUR OPINION IS IMPORTANT TO US! Please complete the survey you may receive by mail or email. Your feedback will be used to make improvements to the healthcare experiences of our patients and their families. Surveys are administered by [employer] ?? If further treatment with your primary care physician or another doctor is recommended, it is important for you to keep the appointment. Call your primary care physician or return to the Emergency Department immediately if your condition worsens, fails to improve, or new symptoms develop. If you need to find a doctor, you can call [facility] [employer] Link for a referral at [phone] or toll free at [phone]) or log in to [email or web address].. ?? [facility], in keeping with [facility] guidance, no longer requires face masks for staff, patientsor visitors in most situations. Similiar to time spent indoors at other locations, there is the chance that you were exposed to repiratory viruses during your time with us (such as flu or COVID-19). If you develop symptoms concerning for a viral respiratory infection, please seek testing (and treatment if indicated) from your medical provider or home test kit. ?? You can view and manage your care through the patient portal or by using a health care paulette of your choosing. [employer] is a website that allows you to securely view your medical information including your hospital discharge summary, office visit summaries, medications and follow-up visits. You can also request appointments, renew medications, and request access to your medical information using a health care paulette of your choosing, or just ask a question. You can enroll at [email or web address] or register during your next office visit. You have been discharged from [facility], Patient Care Unit: ED Hold. If you have any questions regarding these instructions after you leave, please call us and we will be happy to assist you. [facility] Your Care Team Attending Physician Neida Mckeon MD Discharging Providers Neida Mckeon MD Reason for Admission General medical Your Diagnosis UTI (urinary tract infection) Weakness Tests Performed Below is a partial list of the tests performed during your hospitalization. You may have had other tests and procedures not included in this list. Please discuss all test results with your provider. ALK PHOS ALT AST Basic Metabolic Panel BUN CBC CBC w/ Differential Creatinine Electrolytes Glucose Level HOLD BLUE TUBE HOLD GEL TUBE HOLD BURR TUBE HOLD GREEN TUBE LACTIC ACID LIPASE Magnesium Level TOTAL AND DIRECT BILIRUBIN Urinalysis w/hold for Urine Culture URINE MICROSCOPIC CT Abdomen and Pelvis W/O Contrast Primary Care Provider Porter Noriega MD Advance Directive Health Care Proxy on File Yes - Health Care Proxy Discharge Vitals Temperature: 97.8 DegF Height: 160 cm Pulse Rate: 68 bpm Weight: 55 kg Respiratory Rate: 18 br/min Body Mass Index: 21.48 kg/m2 Systolic Blood Pressure: 135 mm Hg Body surface area: 1.56 Diastolic Blood Pressure: 59 mm Hg ?? Oxygen Saturation: 100 % ?? Studies Pending All tests and labs ordered during this hospital stay have been completed unless listed below. Please discuss all pending results with your provider listed above in these instructions. ?? Add On Lab Order Blood Culture Blood Culture #2 Urine Culture What to do next Instructions From Your Doctor Discharge Orders You Need to Schedule the Following Appointments Follow Up with??Porter Noriega MD When:??Within 2 to 3 weeks Where: [address] [facility] [place] [address]- Discharge Medications YO ADAME :1935 Visit Date:05/16/2023 Medications: Please continue your medications until treatment is completed or stopped by your provider. Medications not listed below should be discontinued. Discuss any questions related to medications with your provider. What How Much When Instructions Next Dose New Cefdinir (cefdinir 300 mg oral capsule) 1 capsule Oral Every 12 hours Duration: 5 Days Pickup at [facility] Changed Clopidogrel (clopidogrel 75 mg oral tablet) 1 tab(s) Oral Daily Unchanged Docusate (docusate sodium 100 mg oral capsule) 1 capsule Oral Daily Unchanged Fluoxetine (FLUoxetine 10 mg oral capsule) 1 capsule Oral Daily Unchanged Mirtazapine (mirtazapine 7.5 mg oral tablet) See instructions TAKE ONE TABLET BY MOUTH AT BEDTIME ?? Unchanged Polyethylene Glycol 3350 (MiraLax oral powder for reconstitution) 17 gram Oral Daily as needed for constipation dissolve in water before taking ?? Unchanged Psyllium (Metamucil 3.4 gm/ 5.2 gm oral powder for reconstitution) 3.4 gram Oral Daily dissolve in 8 oz of fluid ?? Pharmacy Information [facility]: [address], [place] [id number] [phone] Test Results Below is a partial list of the most recent Laboratory test results done prior to this discharge. You may have had other tests and procedures not included in this list. Please discuss all test resultswith your provider. Est Creatinine Clearance - 32.78 mL/min (05/16/2023) ALK PHOS (05/16/2023) ???Alkaline Phosphatase - 96 units/L ALT (05/16/2023) ???ALT (SGPT) - 14 units/L AST (05/16/2023) ???AST (SGOT) - 25 units/L Basic Metabolic Panel (05/16/2023) ???Sodium - 137 mmol/L???Potassium - 3.9 mmol/L???Chloride - 98 mmol/L???Bicarbonate Level - 28 mmol/L???Anion Gap - 11???Glucose Level - 103 mg/dL???BUN - 18 mg/dL???Creatinine-Blood - 1.0 mg/dL???Estimated GFR Creatinine - 55 ML/MIN/1.73 M2???Calcium - 9.2 mg/dL BUN (05/17/2023) ???BUN - 19 mg/dL CBC (05/17/2023) ???WBC - 10.0 k/mm3???RBC - 3.66 m/mm3???Hgb - 11.0 Gm/dL???Hct - 33.6 %???MCV - 91.8 femtoliters???MCH - 30.1 pg???MCHC - 32.7 g/dL???Platelet Count - 282 k/mm3???RDW-SD - 45.4 femtoliters???MPV - 10.2 femtoliters???Nucleated RBC (Automated) - 0.0 #/100 WBC'S???Abs. NRBC - 0.0 k/mm3 CBC w/ Differential (05/16/2023) ???WBC - 14.5 k/mm3???RBC - 3.60 m/mm3???Hgb - 10.9 Gm/dL???Hct - 32.6 %???MCV - 90.6 femtoliters???MCH - 30.3 pg???MCHC - 33.4 g/dL???Platelet Count - 297 k/mm3???RDW-SD - 44.7 femtoliters???MPV - 10.2 femtoliters???Nucleated RBC (Automated) - 0.0 #/100 WBC'S???Abs. NRBC - 0.0 k/mm3???Abs. Neut - 12.5 k/mm3???Abs. Lymph - 0.7 k/mm3???Abs. Wilson - 1.1 k/mm3???Abs. Eo - 0.1 k/mm3???Abs. Baso - 0.1 k/mm3???Neut % - 86.2 %???Lymph % - 4.8 %???Wilson % - 7.8 %???Eos % - 0.4 %???Baso % - 0.4 %???Imm Gran - 0.4 %???Abs. Imm Gran - 0.1 k/mm3 Creatinine (05/17/2023) ???Creatinine-Blood - 1.0 mg/dL???Estimated GFR Creatinine - 55 ML/MIN/1.73 M2 Electrolytes (05/17/2023) ???Sodium - 138 mmol/L???Potassium - 3.3 mmol/L???Chloride - 101 mmol/L???Bicarbonate Level - 25 mmol/L???Anion Gap - 12 Glucose Level (05/17/2023) ???Glucose Level - 90 mg/dL HOLD BLUE TUBE (05/16/2023) ???Hold Blue Top - SPECIMEN DISCARDED AFTER 4 HOURS. HOLD GEL TUBE (05/16/2023) ???Hold Gel Top - SPECIMEN DISCARDED AFTER 1 WEEK HOLD BURR TUBE (05/16/2023) ???Hold Burr Top - SPECIMEN DISCARDED AFTER 1 WEEK HOLD GREEN TUBE (05/16/2023) ???Hold Green Top - SPECIMEN DISCARDED AFTER 1 WEEK LACTIC ACID (05/16/2023) ???Lactate - 0.8 mmol/L LIPASE (05/16/2023) ???Lipase - 135 units/L Magnesium Level (05/17/2023) ???Magnesium - 2.2 mg/dL TOTAL AND DIRECT BILIRUBIN (05/16/2023) ???Bilirubin, Total - 0.4 mg/dL???Bilirubin, Direct - 0.1 mg/dL???Bilirubin, Indirect - 0.3 mg/dL Urinalysis w/hold for Urine Culture (05/16/2023) ???Appear/Color, Urine - YELLOW???Clarity - SL.CLOUDY???Specific [place], Urine - 1.015???pH, Urine- 8.0???Albumin, Urine - TRACE???Glucose, Urine - NEGATIVE???Ketones, Urine - NEGATIVE???Bilirubin,Urine - NEGATIVE???Hemoglobin, Urine - 2+???Nitrite, Urine - NEGATIVE???Leukocyte, Urine - 3+???Urobilinogen - NORMAL???Hold Urine Culture - Testing available 48 hours from time of collection. URINE MICROSCOPIC (05/16/2023) ? ?WBC's, Urine - >182 /HPF? ?RBC's, Urine - 53 /HPF? ?Bacteria - SLIGHT? ?Mucus - SLIGHT Allergies (NKA means No Known Allergies) Aleve Bactrim Demerol HCl Indocin doxycycline fentaNYL??(Nausea and vomiting) oxyCODONE Problems Active Problems??(12) Anxiety?? H/O Clostridium difficile infection requiring admission 01/2016?? H/O herpes zoster?? Injury of right wrist?? Multinodular goiter - FNA 11/2008; followed by Dr. Rosado?? Osteoporosis not on bisphosphonate?? Panic disorder?? Polymyalgia rheumatica?? Recurrent urinary tract infection; h/o hydronephrosis; urologist Dr. Alcaraz?? Refusal of blood transfusions as patient is Voodoo?? TIA (transient ischemic attack)?? Vitamin D deficiency?? Education Materials Below is the list of Educational Leaflet Providered with your Discharge Instructions. Valuables and Belongings I fully understand and agree that [facility] accepts no responsibility for all my personal property including clothing, toilet articles, radios, jewelry, dentures, hearing aids, rings, money, or any other property that is in my possession or is brought to me after admission. I understand certain valuables may be placed in a hospital safe for a short period of time. I understand that the hospital is not liable for loss or damage due to accident, fire, or other natural occurrence while said property is in the safe. I accept full responsibility for any personal property that I keep with me, and will not hold the hospital responsible in case of loss or disappearance. I acknowledge that i have been encouraged to send valuables and belongings home. ?? Review of Valuable and Belonging List: With patient, With witness Disposition of Belongings: Other: bedside with patient Date for Pt to Sign Valuables/Belongings: 05/16/23 10:47:00 ?? Other Discharge Information ? Case Management Discharge Plan?? Discharge Plan?? Discharge Agency Information?? Discharge Level of Care at Discharge: Homehealth/VNA Name of Agency #1: [facility]/Hospice/Home Care: [facility] Radio Performer #1: Intake ?? Service Categories #1: Physical Therapy ?? Service Comments #1: The VNA will call you with a visit time ?? Pulmonary Rehab Status?? Pulmonary Rehab Discharge Status?? Respiratory Rate: 18 br/min ? Common Emergency Awareness Tips IS IT A STROKE? Act FAST and Check for these signs: FACE Does the face look uneven? ARM Does one arm drift down? SPEECH Does their speech sound strange? TIME Call 9-1-1 at any sign of stroke ?? Heart Attack Signs Chest discomfort: Most heart attacks involve discomfort in the center of the chest and lasts more than a few minutes, or goes away and comes back. It can feel like uncomfortable pressure, squeezing, fullness or pain. Discomfort in upper body: Symptoms can include pain or discomfort in one or both arms, back, neck, jaw or stomach. Shortness of breath: With or without discomfort. Other signs: Breaking out in a cold sweat, nausea, or lightheaded. Remember, MINUTES DO MATTER. If you experience any of these heart attack warning signs, call to get immediate medical attention! ?? Smoking can increase your chances of developing chronic health problems and can cause harmful effects to other family members in your house. If you smoke, you are strongly encouraged to quit. Please call [facility] [employer] Link at [phone] or [phone] ([phone]) or log in to [email or web address] for referrals to smoking cessation programs. ?? 252 Suicide & Crisis Lifeline is available 11/01 if you or someone you know needs to find a reason to keep living. By calling 825 you'll be connected to a skilled, trained counselor at a crisis center in your area. INPATIENT DISCHARGE INSTRUCTIONS SIGNATURE YO LAUREANO Location:[facility] Registration Date and Time:05/16/2023 12:32 EST Primary Care Physician: Porter Noriega MD, Attending Physician: Neida Mckeon MD, I YO ADAME, have received the above patient education materials/instructions and have verbalized understanding. If ambulance or transport services are being used I further acknowledge being givena choice of service. ?? If you need to contact me, please call me at this number: . Patient/Country Printer Apprentice Name: Patient/Country Printer Apprentice Signature: Relationship to Patient: Witness Name/Signature: Date: Patient Care team information Care Team Personnel Name: Birgit Sethi RN Position: [facility] RN Member Role: Primary Care Nurse Name: Christina Villa RN Position: [facility] RN Member Role: Primary Care Nurse Name: Porter Noriega MD Position: [facility] Physician - Primary Care Member Role: PCP Address: Address: [address] [place] [address] Adult & Pediatric [address] Name: Vianey Lockwood RN Position: [facility] RN Member Role: Primary Care Nurse Name: Hiwot Donaldson [place] Position: [facility] RN Member Role: Primary Care Nurse Name: Nehal Pate Position: [facility] RN Member Role: Primary Care Nurse Name: Yo Tolbert RN Position: [facility] RN Member Role: Primary Care Nurse Name: Dajuan Martinez RN Position: [facility] RN Member Role: Primary Care Nurse Name: Scott Lou MD Position: [facility] Physician - Behavioral Health Member Role: Lifetime Consulting Physician Address: Address: [address] [place] [address] Name: Soren BILL Attending Position: [facility] ED Medicine Name: Colin Augustine Position: [facility] ED TA [facility] Member Role: Patient Care Provider Care Team Related Persons Name: GEORGETTE MOHAN Address: [address] [address] Name: GEORGETTE JONES Address: [address] [address]
--- OUTSIDE RECORDS SUMMARY | 2023-10-26 11:06 | XMS_ITS | Continuity of Care Document ---
Author Organization [facility] Address [address] [place] [address]- Care Team Providers Care Maintenance Truck Driver Name Role Phone Porter Noriega MD Primary Care Physician [phone] Encounter [facility] Date(s): 08/06/23 - 09/05/23 [facility] [address] [place], [place] [id number] Allergies, Adverse Reactions, Alerts Substance Reaction Severity Status doxycycline Active Indocin Active oxyCODONE Active Bactrim Active Aleve Active Demerol HCl Active fentaNYL Nausea and vomiting Active Immunizations Given and Recorded Vaccine Date Status Refusal Reason [id number] 12y+ bivalent booster vax 05/13/22 Recorded influenza [...] vaccine, inactivated 03/02/14 Give n SARS-CoV-2 mRNA ([id number]) vax 11/01/21 Recorded SARS-CoV-2 (COVID-19) mRNA BNT-162b2 [...] tablet, 3 Refills, Maintenance, 06/30/23 7:52:00 EST, [facility], refill when due, 160, cm, 05/17/23 15:15:00 EST, Height, 55, kg, 05/17/23 5:19:00 EST, Dry Weight Start Date: 06/30/23 Status: Ordered clopidogrel 75 mg oral tablet 1, tablet, By Mouth, Daily, for 90 days, # 90 tablet, Refills 3, Tot. Refills 3, Physician Stop 07/08/24 14:41:00 EST, 07/14/23 14:41:00 EST, Route to Pharmacy Electronically, [facility], 160, cm, 07/14/23 14:21:00 [...] 11/10/22 12:45:00 EDT, Route to Pharmacy Electronically, [facility], dose decrease, 160, cm, [...] Refusal of blood transfusions as patient is Orthodox Confirmed Active Multinodular goiter - FNA 11/2008; followed by Dr. Rosado Confirmed Active TIA (transient ischemic attack) Confirmed Active Vitamin D deficiency Confirmed Active Social History Social History Type Response Smoking Status Former smoker; Other : minimal use, quit decades ago; entered on: 05/01/16 Sex Patient Care team information Care Team Personnel Name: Birgit Sethi RN Position: [facility] SN RN Member Role: Primary Care Nurse Name: Christina Villa RN Position: [facility] RN Member Role: Primary Care Nurse Name: Porter Noriega MD Position: [facility] Physician - Primary Care Member Role: PCP Address: Address: [address] [place] [address] Adult & Pediatric [address] Name: Vianey Lockwood RN Position: [facility] ED RN W/OE and Tasks Member Role: Primary Care Nurse Name: Hiwot Donaldson [place] Position: [facility] RN Member Role: Primary Care Nurse Name: Nehal Pate Position: [facility] RN Member Role: Primary Care Nurse Name: Yo Tolbert RN Position: [facility] RN Member Role: Primary Care Nurse Name: Dajuan Martinez RN Position: [facility] RN Member Role: Primary Care Nurse Name: Scott Lou MD Position: [facility] Physician - Behavioral Health Member Role: Lifetime Consulting Physician Address: Address: [address] [place] [address]- Care Team Related Persons Name: ZINA MOHAN Address: [place] [address] Name: ZINA JONES Address: [place] [address]
--- OUTSIDE RECORDS SUMMARY | 2023-10-26 11:06 | XMS_ITS | Continuity of Care Document ---
Author Organization [facility] Address [address] [place] [address]- Care Team Providers Care Distributor Sales Manager Name Role Phone Porter Noriega MD Primary Care Physician Encounter [facility] Date(s): 09/18/19 - 09/20/[address] [address]- [facility] Discharge Disposition: A-D/C Home Attending Physician: Cassidy Tinsley MD Admitting Physician: Cori Landrum DO Referring Physician: Efrain Scott MD Allergies, Adverse Reactions, Alerts Substance Reaction [...] mg, By Mouth, Daily, # 30 tablet, 0 Refills, Maintenance, 09/20/19 13:04:00 EDT, [facility], 161, cm, 09/20/19 9:35:00 EDT, Height, 55.5, kg, 09/18/19 22:53:00 EDT, Dry Weight Start Date: 09/20/19 Status: Ordered mirtazapine 7.5 mg oral tablet [...] By Mouth, Daily, # 30 tablet, Refills 0, Tot. Refills 0, Maintenance, 09/20/19 13:04:00 EDT, Route to Pharmacy Electronically, [facility], 161, cm, 09/20/19 9:35:00 EDT, Height, 55.5, kg, 09/18/19 22:53:00 EDT, Dry Weight Start Date: 09/20/19 Status: Ordered PrednisoLONE = 15 mg, By Mouth, Daily, 0 Refills, Maintenance, 09/18/19 21:18:00 EDT Start Date: 09/18/19 Status: Ordered predniSONE 5 mg oral tablet [...] Dr. Rosado(Confirmed) Active Vitamin D deficiency(Confirmed) Active Results Radiology Reports * Exam Date Time Procedure Performing Provider Status 09/18/19 7:28 PM Chest Portable Gabby Boogie; Galdino (Verified) Notes: (Chest Portable) Reason For Exam: Shortness of Breath RESULT: Chest Portable Chest Portable Reason: Shortness of Breath; Clinical Question(s): CHF; COMPARISON: None. FINDINGS: LINES AND TUBES: None. LUNGS AND PLEURA: Probable atelectasis or scarring in the left lung base. No consolidation or overt pulmonary edema. No pleural effusion. No pneumothorax. HEART, MEDIASTINUM AND HÉCTOR: Heart is normal in size. Normal mediastinal and hilar contour. BONES AND SOFT TISSUES: No acute abnormality. Right-sided calcific tendinitis of the rotator cuff. IMPRESSION: No acute abnormality. WSN: [id number] Ordering Physician: Efrain Scott Dictated By: Juni Chadwick MD Dictated Date/Time: 09/18/19 7:32 pm Reviewed By: Juni Chadwick MD Signed By: Juni Chadwick MD Signed Date/Time: 09/18/19 7:32 pm Transcribed By: CUONG Transcribed Date/Time: 09/18/19 7:32 pm Vital Signs Most recent to oldest [Reference Range]: 1 2 3 Height 161 cm (09/20/19 9:35 AM) 161 cm (09/20/19 6:31 AM) 161 cm (09/19/19 8:18 PM) Weight 55.5 kg (09/18/19 10:00 PM) 55.5 kg (09/18/19 8:02 PM) 56 kg (09/18/19 5:20 PM) Oxygen Saturation [94-100 %] 100 % (09/20/19 6:31 AM) 97 % (09/19/19 8:18 PM) 97 % (09/19/19 2:51 PM) Pulse Rate [55-90 bpm] 64 bpm (09/20/19 6:31 AM) 67 bpm (09/19/19 8:18 PM) 66 bpm (09/19/19 2:51 PM) Body Mass Index [18.5-24.99] 21.41 (09/18/19 8:02 PM) 21.6 (09/18/19 5:20 PM) 21.6 (09/18/19 2:45 PM) Blood Pressure [90-138/55-84 mm Hg] 119/79mm Hg (09/20/19 6:31 AM) 143/69mm Hg *H* (09/19/19 8:18 PM) 157/76mm Hg *H* (09/19/19 2:51 PM) Respiratory Rate [16-30 br/min] 18 br/min (09/20/19 6:31 AM) 18 br/min (09/19/19 8:18 PM) 22 br/min (09/19/19 2:51 PM) Temperature [96.8-100.4 DegF] 97.6 DegF (09/20/19 6:31 AM) 98.1 DegF (09/19/19 8:18 PM) 98.7 DegF (09/19/19 2:51 PM) Liters per Minute 0 L/min (09/19/19 5:00 AM) Mode of Delivery (Oxygen) Room air (09/20/19 6:31 AM) Room air (09/19/19 8:18 PM) Room air (09/19/19 2:51 PM) Blood pressure sites Arm, left (09/20/19 6:31 AM) Arm, right (09/19/19 8:18 PM) Arm, left (09/19/19 2:51 PM) Temperature Route Temporal (09/20/19 6:31 AM) Temporal (09/19/19 8:18 PM) Temporal (09/19/19 2:51 PM) Dry Weight 55.5 kg (09/18/19 8:02 PM) 56 kg (09/18/19 5:20 PM) 56 kg (09/18/19 2:51 PM) Weight Obtained Via Standing scale (09/18/19 8:02 PM) Sensory deficits Hearing deficit L, Hearing deficit R (09/18/19 8:02 PM) Mobility assistance Transfer, assist of 1 (09/18/19 8:02 PM) Social History Social History Type Response Smoking Status Former smoker; Other : minimal use, quit decades ago; entered on: 05/01/16 Sex
--- OUTSIDE RECORDS SUMMARY | 2023-10-26 11:06 | XMS_ITS | Continuity of Care Document ---
Author Organization [facility] Address [address] [place] [address]- Care Team Providers Care Telehealth Case Manager Name Role Phone Hari NEELY, Porter Mendez Primary Care Physician Encounter [facility] Date(s): 01/22/20 - 02/21/[address] [address]- [facility] Allergies, Adverse Reactions, Alerts Substance Reaction [...] tablet, 11 Refills, Maintenance, 09/21/19 13:40:00 EDT, [facility], refill when due, 161, cm, 09/20/19 9:35:00 EDT, Height, 55.5, kg, 09/18/19 22:53:00EDT, Dry Weight Start Date: 09/21/19 Status: Ordered FLUoxetine 20 mg oral capsule 20 mg, 1, capsule, By Mouth, Daily, # 30 capsule, Refills 0, Tot. Refills 0, Maintenance, 12/20/19 15:42:00 EDT, Route to Pharmacy Electronically, [facility], dose increased from 10 mg, [...] 10/16/19 8:15:00 EDT, Route to Pharmacy Electronically, [facility], 160, cm, 10/08/19 8:40:00 EDT, [...] of blood transfusion s as patient is Pentecostal(Confirmed) Active Multinodular goiter - FNA 2008; followed by Dr. Rosado(Confirmed) Active TIA (transient ischemic attack)(Confirmed) Active Vitamin D deficiency(Confirmed) Active Social History Social History Type Response Smoking Status Former smoker; Other : minimal use, quit decades ago; entered on: 05/01/16 Sex
--- OUTSIDE RECORDS SUMMARY | 2023-10-26 11:06 | XMS_ITS | Continuity of Care Document ---
Author Organization [facility] Address [address] [place] [address]- Care Team Providers Care Mathematics Lecturer Name Role Phone Porter Noriega MD Primary Care Physician En[place] [facility] Date(s): 05/24/23 - 06/23/23 [facility] [address] [place], [place] [address] Allergies, Adverse Reactions, Alerts Substance Reaction Severity Status doxycycline Active Indocin Active oxyCODONE Active Bactrim Active Aleve Active Demerol HCl Active fentaNYL Nausea and vomiting Active Immunizations Given and Recorded Vaccine Date Status Refusal Reason [id number] 12y+ bivalent booster vax 05/13/22 Recorded influenza [...] vaccine, inactivated 03/02/14 Give n SARS-CoV-2 mRNA ([id number]) vax 11/01/21 Recorded SARS-CoV-2 (COVID-19) mRNA BNT-162b2 [...] 03/11/22 10:00:00 EDT, Route to Pharmacy Electronically, [facility], 160, cm, 10/07/21 [...] 11/10/22 12:45:00 EDT, Route to Pharmacy Electronically, [facility], dose decrease, 160, [...] Refusal of blood transfusions as patient is Bahai Confirmed Active Multinodular goiter - FNA 11/2008; followed by Dr. Rosado Confirmed Active TIA (transient ischemic attack) Confirmed Active Vitamin D deficiency Confirmed Active Social History Social History Type Response Smoking Status Former smoker; Other : minimal use, quit decades ago; entered on: 05/01/16 Sex Patient Care team information Care Team Personnel Name: Birgit Sethi RN Position: [facility] RN Member Role: Primary Care Nurse Name: Christina Villa RN Position: [facility] RN Member Role: Primary Care Nurse Name: Porter Noriega MD Position: [facility] Physician - Primary Care Member Role: PCP Address: Address: [address] [place] [address] [facility] [address] Name: Vianey Lockwood RN Position: [facility] ED RN W/OE and Tasks Member Role: Primary Care Nurse Name: Hiwot Donaldson [place] Position: [facility] RN Member Role: Primary Care Nurse Name: Nehal Pate Position: [facility] RN Member Role: Primary Care Nurse Name: Yo Tolbert RN Position: [facility] RN Member Role: Primary Care Nurse Name: Dajuan Martinez RN Position: [facility] RN Member Role: Primary Care Nurse Name: Scott Lou MD Position: [facility] Physician - Behavioral Health Member Role: Lifetime Consulting Physician Address: Address: [address] [place] [address] Care Team Related Persons Name: ZINA MOHAN Address: home [address] [place] [id number] Name: JONES, ZINA Address: home [address] [place] [address]
--- OUTSIDE RECORDS SUMMARY | 2023-10-26 11:06 | XMS_ITS | Continuity of Care Document ---
Author Organization [facility] Address [address] [place] [address]- Care Team Providers Care Court Abstractor Name Role Phone Porter Noriega MD Primary Care Physician [phone] Encounter [facility] Date(s): 10/07/19 - 10/08/[address] [address]- [facility] Discharge Disposition: A-D/C Home Attending Physician: Laureano NEELY, Cassidy Swift Admitting Physician: Ashok NEELY, Venessa García Referring Physician: Michael Nick MD Allergies, Adverse Reactions, Alerts Substance Reaction [...] tablet, 11 Refills, Maintenance, 09/21/19 13:40:00 EDT, [facility], refill when due, 161, cm, 09/20/19 9:35:00 EDT, Height, 55.5, kg, 09/18/19 22:53:00EDT, Dry Weight Start Date: 09/21/19 Status: Ordered docusate-senna 50 mg-187 mg oral tablet 2 tablet, By Mouth, Daily at bedtime, for 30 days, # 60 tablet, 0 Refills, Acute 11/07/19 12:27:00 EDT, 10/08/19 12:27:00 EDT, Tablet, [facility], 2 tablet By Mouth Daily at bedtime,x30 days,160, cm, 10/08/19 8:40:00 EDT, Height, 53.6, kg, 04... Start Date: 10/08/19 Stop Date: 11/07/19 Status: Ordered mirtazapine 7.5 mg oral tablet [...] of blood transfusion s as patient is Taoism(Confirmed) Active Multinodular goiter - FNA 2008; followed by Dr. Rosado(Confirmed) Active TIA (transient ischemic attack)(Confirmed) Active Vitamin D deficiency(Confirmed) Active Results Radiology Reports * Exam Date Time Procedure Performing Provider Status 10/05/19 10:25 AM Chest Portable Casey Parra (Verified) Notes: (Chest Portable) Reason For Exam: Stroke;Other: RESULT: Chest Portable Chest Portable INDICATION: Expressive fascia, fall, slurred speech, weakness and nausea. Past medical history of polymyalgia rheumatica and transient ischemic attack. Clinical question: CHF. COMPARISON: Chest x-ray 09/18/2019. FINDINGS: LINES AND TUBES: None. LUNGS AND PLEURA: Clear lungs. Normal pulmonary vascularity. No pleural effusion. No pneumothorax. HEART, MEDIASTINUM AND HÉCTOR: Heart is normal in size. Normal mediastinal and hilar contour. BONES AND SOFT TISSUES: No acute abnormality. IMPRESSION: No evidence of acute abnormality. I have personally reviewed the images and I agree with this report. WSN: [id number] Ordering Physician: Michael Nick Dictated By: Medardo Zuleta MD Dictated Date/Time: 10/05/19 10:51 a Reviewed By: Srinath Torres MD Signed By: Srinath Torres MD Signed Date/Time: 10/05/19 10:56 am Transcribed By: CUONG Transcribed Date/Time: 10/05/19 10:39 am Vital Signs Most recent to oldest [Reference Range]: 1 2 3 Height 160 cm (10/08/19 8:40 AM) 160 cm (10/08/19 6:30 AM) 160 cm (10/08/19 2:01 AM) Weight 52.7 kg (10/05/19 4:00 PM) 55.5 kg (10/05/19 12:58 PM) 55.5 kg (10/05/19 12:03 PM) Oxygen Saturation [94-100 %] 98 % (10/08/19 6:30 AM) 99 % (10/08/19 2:01 AM) 98 % (10/07/19 8:44 PM) Pulse Rate [55-90 bpm] 70 bpm (10/08/19 6:30 AM) 60 bpm (10/08/19 2:01 AM) 60 bpm (10/07/19 8:44 PM) Body Mass Index [18.5-24.99] 20.59 (10/05/19 4:00 PM) 21.68 (10/05/19 12:58 PM) 21.68 (10/05/19 12:03 PM) Blood Pressure [90-138/55-84 mm Hg] 144/67mm Hg *H* (10/08/19 6:30 AM) 138/80mm Hg (10/08/19 3:00 AM) 171/53mm Hg *H* (10/08/19 2:01 AM) Respiratory Rate [16-30 br/min] 20 br/min (10/08/19 6:30 AM) 18 br/min (10/08/19 2:01 AM) 18 br/min (10/07/19 8:44 PM) Temperature [96.8-100.4 DegF] 97.0 DegF (10/08/19 6:30 AM) 97.4 DegF (10/08/19 2:01 AM) 97.2 DegF (10/07/19 8:44 PM) Liters per Minute 0 L/min (10/07/19 3:27 PM) 0 L/min (10/07/19 5:39 AM) Mode of Delivery (Oxygen) Room air (10/08/19 6:30 AM) Room air (10/08/19 2:01 AM) Room air (10/07/19 8:44 PM) Blood pressure sites Arm, left (10/08/19 6:30 AM) Arm, left (10/08/19 3:00 AM) Arm, left (10/08/19 2:01 AM) Temperature Route Temporal (10/08/19 6:30 AM) Temporal (10/08/19 2:01 AM) Temporal (10/07/19 8:44 PM) Dry Weight 53.6 kg (10/05/19 4:00 PM) 55.5 kg (10/05/19 12:58 PM) 55.5 kg (10/05/19 12:03 PM) Weight Obtained Via Patient/family state d (10/05/19 10:24 AM) Dry Weight Obtained Via Patient/family s tated (10/05/19 10:24 AM) Social History Social History Type Response Smoking Status Former smoker; Other : minimal use, quit decades ago; entered on: 05/01/16 Sex
--- OUTSIDE RECORDS SUMMARY | 2023-10-26 11:06 | XMS_ITS | Continuity of Care Document ---
Author Organization [facility] Address [address] [place] [address]- Care Team Providers Care Associate Engineer Name Role Phone Porter Noriega MD Primary Care Physician [phone] [facility] Date(s): 09/21/19 - 09/28/19 [facility] [address] [place] [address]- [facility] Encounter Diagnosis TIA (transient ischemic attack)(Discharge Diagnosis) - 09/21/19 Polymyalgia rheumatica(Discharge Diagnosis) - 09/21/19 Anxiety(Discharge Diagnosis) - 09/21/19 Attending Physician: Porter Noriega MD Allergies, Adverse [...] tablet, 11 Refills, Maintenance, 09/21/19 13:40:00 EDT, [facility], refill when [...] 09/21/19 13:41:00 EDT, Route to Pharmacy Electronically, [facility], refill when due, 161, [...] of blood transfusion s as patient is Latter-day(Confirmed) Active Multinodular goiter - FNA 2008; followed by Dr. Rosado(Confirmed) Active TIA (transient ischemic attack)(Confirmed) Active Vitamin D deficiency(Confirmed) Active Diagnosis Diagnosis Type Effective Dates Health Status Clinical Service Informant TIA (transient ischemic attack) Discharge Diagnosis 09/21/19 Polymyalgia rheumatica Discharge Diagnosis 09/21/19 Anxiety Discharge Diagnosis 09/21/19 Social History Social History Type Response Smoking Status Former smoker; Other : minimal use, quit decades ago; entered on: 05/01/16 Sex
--- OUTSIDE RECORDS SUMMARY | 2023-10-26 11:06 | XMS_ITS | Continuity of Care Document ---
Author Organization [facility] Address [address] [place] [address]- Care Team Providers Care Rescue Boat Operator Name Role Phone Porter Noriega MD Primary Care Physician [place] [facility] 10/[place]21 - 10/14/[place] [facility] [address] [place] [address] Encounter Diagnosis Anxiety(Discharge Diagnosis) - 10/07/21 Polymyalgia rheumatica(Discharge Diagnosis) - 10/07/21 Attending Physician: Porter Noriega MD Allergies, Adverse [...] to Pharmacy Electronically, [facility] 161, cm, 01/21/20 14:01:00 EDT, [...] of blood transfusion s as patient is Congregational(Confirmed) Active Multinodular goiter - FNA 2008; followed by Dr. Rosado(Confirmed) Active TIA (transient ischemic attack)(Confirmed) Active Vitamin D deficiency(Confirmed) Active Diagnosis Diagnosis Type Effective Dates Health Status Clinical Service Informant Anxiety Discharge Diagnosis 10/07/21 Polymyalgia rheumatica Discharge Diagnosis 10/07/21 Vital Signs Most recent to oldest [Reference Range]: 1 Height 160 cm (10/07/21 1:18 PM) Weight 55.2 kg (10/07/21 1:18 PM) Oxygen Saturation [94-100 %] 100 % (10/07/21 1:18 PM) Pulse Rate [55-90 bpm] 58 bpm (10/07/21 1:18 PM) Body Mass Index [18.5-24.99] 21.56 (10/07/21 1:18 PM) Blood Pressure [90-138/55-84 mm Hg] 132/ 74mm Hg (10/07/21 1:18 PM) Blood pressure sites Arm, left (10/07/21 1:18 PM) Social History Social History Type Response Smoking Status Former smoker; Other : minimal use, quit decades ago; entered on: 05/01/16 Sex
[2023-10-26 11:49] VITALS: BP 128/78; BP 136/82; PULSE 70; PULSE 77; RESP 16; RESP 18; O2SAT 96; O2SAT 98; BMI 20.4
== END 2023-10-26 11:44 | disposition home or self-care (01) ==
LOC: HO.PMCPRC 11:01
PROVIDERS: PCP Internal Medicine; Visit Provider Anesthesiology
DX: M46.1 Sacroiliitis, not elsewhere classified (principal); M99.04 Segmental and somatic dysfunction of sacral region
CPT/HCPCS: 27096

== ENCOUNTER 2023-10-28 10:35 | Outpatient (AMB) | payer MEDICARE, OTHER, SELFPAY ==
--- NOTE | 2023-10-28 10:36 | MHC.OFFVIS ---
Vital Signs 10/28/23 10:42 Height 5 ft 4 in Weight 118 lb 2 oz BMI 20.3 BP 144/62 H Blood Pressure Location Lt brachial Position Sitting Respiration 14 Pulse 56 Pulse Source Pulse Oximeter Pulse Oximetry (%) 99 Oxygen Delivery Method Room Air Intake Visit Reasons: s/p right Dx SIJ inj Intake Note: Patient comes in for post-op appointment. Reports pain 5/10. Allergies doxycycline Allergy (Unknown, Verified 10/28/23 10:43) Unknown fentanyl Allergy (Unknown, Verified 10/28/23 10:43) Nausea and Vomiting meperidine [From Demerol] Allergy (Unknown, Verified 10/28/23 10:43) Unknown naproxen [From Aleve] Allergy (Unknown, Verified 10/28/23 10:43) Unknown oxycodone Allergy (Unknown, Uncoded 10/07/23 09:30) Unknown HPI Comments Details: La is back in my office after diagnostic sacroiliac joint injection on the right. The patient reported practically no pain improvement from the injection immediately after the the procedure pain went down from 7/10 to 2/10 however in 1 hour after the procedure the pain returned to 7 to 8/10. Her daughter is present today during the evaluation and she reports that her mother's pain got exacerbated when 1 of her sons . There is certain emotional component this patient's pain. She went for x-ray of the right hip, there were no any changes in the hip joint however there were minimal calcific changes in the right trochanter. That can not explain the pain in the groin she is complaining on. We had very long and difficult conversation today. I asked the patient how aggressive she wants me to be with helping her pain. I offered the patient spinal cord stimulator versus intrathecal pain pump to help her pain. However she stated that this is too much for her and she does not want to consider this kind of a interventions. Previously she was patient in pain management facility which did multiple injections for her and even performed mild procedure. None of those interventions helps her pain. Her daughter and the patient herself more inclined to receive some medical management of her pain, possibility exists of treating her pain with opioids. However when I explained patient is opioid program here they understood that it would be too much for 88 years old lady to visit me every month. I offered her to try tramadol 50 mg 4 times a day for the next 4 days and to see whether this medication will give her no side effects. I offer the trial of tramadol to this patient however later on evaluating her chart again I found out that she is on duloxetine. Therefore tramadol will be contraindicated for this patient. She also wants to try physical therapy. She wants me to schedule her for physical therapy as an open order in her nearby facility. I will do as she desires. Prior: complains on pain in the right side of the lower back with radiation down to the right lower extremity to the level of the knee on posterior surface of the posterior buttock hip and thigh. She also complains on pain in the projection of the right groin. pain started in June 2022. She denies any trauma car accident or inciting event. She had multiple images of the lumbar spine which demonstrated spinal stenosis. She had multiple injections including facet joint injections as well as mild procedure all of those injections were done with steroids and none of it alleviated her pain. She does not remember if her physicians in the past spoke with her about the sacroiliac joint pain or hip pain. Her past medical history significant for TIA history of fatigue and history of thyroid nodules she was hypothyroid in the past however now her thyroid function returned to normal. She reports anemia and shortness of breath from time to time she might have some element of congestive heart failure. [facility] Family History (Updated 10/07/23 @ 09:35 by Maddy Chávez) Mother Cancer of lung Sister Diabetes type 2, controlled FH: mental illness Son FH: mental illness Social History (Updated 10/07/23 @ 09:32 by Maddy Chávez) Alcohol intake: never Patient Tobacco Use Status: Former Tobacco user Review of Systems Const All systems reviewed & are unremarkable except as noted in HPI and below ENT Reports Normal hearing present Neuro Reports Normal hearing present, Denies Abnormal speech present, Denies confusion and Denies Sensory deficit (Neuro) Psych Denies confusion Physical Exam Vital Signs: Last Vital Signs Pulse 56 10/28/23 10:42 Resp 14 10/28/23 10:42 BP 144/62 H 10/28/23 10:42 Pulse Ox 99 10/28/23 10:42 Oxygen Delivery Method Room Air 10/28/23 10:42 BMI result Body Mass Index 20.3 Const General: no acute distress; No confusion Orientation/consciousness: patient oriented x3 and No confusion Eyes General: appearance normal, both eyes and all related structures Pupils: Equal, round and reactive pupils present EOM: EOMs intact bilaterally Neck Neck: Yes full ROM Chest Chest palpation & inspection: normal inspection of the chest Resp Effort & Inspection: normal respiratory effort, able to speak in complete sentences, normal respiratory pattern, no audible wheezes and no cough Cardio Jugular venous distension: no JVD GI Inspection: Yes normal to inspection Back/Spine/Pelvis Other: The patient is able to stand on bilateral tiptoes in bilateral heels without difficulty. She is just needs support for the balance. Flexing forward and flexing backwards aggravate her pain however flexing backwards aggravate her pain more than flexing forward. SLR is negative bilaterally. Aung test is positive on the right, left-sided performed Aung test also positive on the right. No tenderness on palpation in paraspinal spinal region of the most of the lumbar spine. No tenderness on percussion. Patient reports most of the tenderness on palpation in the projection of the L5-S1 presumable interval and rest of the sacral bone. Pelvic compression and pelvic distraction tests are positive on the right. Loading test is negative bilaterally. Valsalva maneuver is negative for pain increase. Lateral and medial hip rotation cause minor discomfort in the back of the patient however she denies discomfort in the groin. She reports severe pain in the groin with walking and flexing forward. Neuro General: patient oriented x3, gait normal and No confusion Cranial nerves: Yes CN's II-XII intact bilaterally, Yes Equal, round and reactive pupils present, Yes Normal hearing present and Yes Ability to bilaterally elevate shoulders present Speech: No Abnormal speech present Gait exam (Neuro): Normal gait present Motor exam (neuro): 5/5 motor strength present throughout Sensory Exam: No Sensory deficit (Neuro) Extrem General: No pedal edema Psych Speech and movement: Normal speech and movement present Affect: normal affect Attitude: cooperative Thought process: Normal thought process present Thought content: Normal thought content present Insight: Good insight present (Psych) Judgement: Good judgement present (Psych) Assessment & Plan Assessment & Plan (1) Right hip pain: Code(s): M25.551 - Pain in right hip Category: Medical (2) Chronic pain syndrome: Code(s): G89.4 - Chronic pain syndrome Category: Medical (3) Sacroiliitis: Code(s): M46.1 - Sacroiliitis, not elsewhere classified Category: Medical (4) Somatic dysfunction of right sacroiliac joint: Code(s): M99.04 - Segmental and somatic dysfunction of sacral region Category: Medical (5) Spinal stenosis: Code(s): M48.00 - Spinal stenosis, site unspecified Category: Medical Plan Multiple measures were made to treat this 88 years old lady's pain. She will be scheduled for open order physical therapy. I also wanted to prescribe her tramadol however it looks like that she is on fluoxetine and combination of those 2 medications could lead to serotonin syndrome. Therefore I change my mind about prescribing her tramadol. We will inform patient about it. I will give her open order for physical therapy. So she can attend physical therapy next to her home. Spinal cord stimulator versus intrathecal pain pump were offered to the patient however the patient thinks and maybe rightfully so that she is too old for this kind of a procedures. Orders: Orders PT Evaluation and Treatment Today G89.4 - Chronic pain syndrome, M25.551 - Pain in right hip, M46.1 - Sacroiliitis, not elsewhere classified, M48.00 - Spinal stenosis, site unspecified, M99.04 - Segmental and somatic dysfunction of sacral region Patient Instructions: I here by testify that I spent 40 minutes in conversation with this patient as well as planning her care and organizing this note. Coding Level of Care Code Est Pt Level 5 (52917) Diagnoses Right hip pain M25.551 Chronic pain syndrome G89.4 Sacroiliitis M46.1 Somatic dysfunction of right sacroiliac joint M99.04 Spinal stenosis M48.00
[2023-10-28 10:42] VITALS: BP 144/62; PULSE 56; RESP 14; O2SAT 99; BMI 20.3
== END 2023-10-28 11:20 | disposition home or self-care (01) ==
PROVIDERS: PCP Internal Medicine; Visit Provider Anesthesiology
DX: M25.551 Pain in right hip (principal); G89.4 Chronic pain syndrome; M46.1 Sacroiliitis, not elsewhere classified; M99.04 Segmental and somatic dysfunction of sacral region; M48.00 Spinal stenosis, site unspecified
CPT/HCPCS: 99215

== ENCOUNTER → 2023-10-28 10:35 | Outpatient (BNVA) | payer MEDICARE, OTHER, SELFPAY | PROVIDERS: PCP Internal Medicine; Visit Provider Anesthesiology | DX: M25.551 Pain in right hip (principal); M46.1 Sacroiliitis, not elsewhere classified; M99.04 Segmental and somatic dysfunction of sacral region; M48.00 Spinal stenosis, site unspecified; G89.4 Chronic pain syndrome | CPT/HCPCS: 99212 ==